=== PATIENT | female | born 1985 | race Caucasian/White ===

== ENCOUNTER → 2017-10-11 | Outpatient (CLI) | payer OTHER ==
[~2017-10-11] MED LIST: CRG625 PO; NRT/50 PO; OMEP40CA41 PO
[2017-10-11 13:22] LABS: BASO % 0.4 %; BASO ABS # 0.03 K/uL (0-0.2); COMPLETE YES; EOS % 1.6 %; HEMATOCRIT 45.4 % (37-47); IG% 0.3 %; LYMPH % 27.3 %; LYMPH ABS # 1.88 K/uL (1.2-3.4); MEAN CELL VOLUME 95.2 fL (80-100); MEAN CORPUSCULAR HEMOGLOBIN 33.3 pg (25-34); MEAN PLATELET VOLUME 9.6 fL (7.4-10.4); MONO % 7.3 %; NEUT % 63.1 %; PLATELET COUNT 289 K/uL (130-400); RED BLOOD COUNT 4.77 M/uL (4.2-5.4); WHITE BLOOD COUNT 6.88 K/uL (4.8-10.8)
[2017-10-11 13:48] LABS: ALT/SGPT 42 U/L (12-78); BLOOD UREA NITROGEN 11 mg/dl (7-18); BUN/CREATININE RATIO 11.1 (10-20); CALCIUM 9.2 mg/dl (8.5-10.1); CARBON DIOXIDE 24 mmol/L (21-32); CHLORIDE 106 mmol/L (98-107); CREATININE 0.96 mg/dl (0.60-1.20); GLUCOSE 93 mg/dl (70-99); POTASSIUM 4.1 mmol/L (3.5-5.1); SODIUM 137 mmol/L (136-145)
[2017-10-11 13:58] LABS: ALB/GLOB RATIO 1.1 (0.9-2); ALKALINE PHOSPHATASE 89 U/L (45-117); AST/SGOT 20 U/L (15-37)
== END | disposition home or self-care (01) ==
LOC: C.LAB 12:40
PROVIDERS: ATTEND Family Medicine
DX: R42 Dizziness and giddiness (principal); R23.2 Flushing; I10 Essential (primary) hypertension

== ENCOUNTER → 2017-10-21 | Outpatient (CLI) | payer OTHER ==
[~2017-10-21] MED LIST changes: +GADAVIST IV PRN
--- NOTE | 2017-10-21 15:06 | DIAGNOSTIC IMAGING REPORT ---
MRI OF THE BRAIN WITHOUT AND WITH IV CONTRAST CLINICAL HISTORY: VISUAL CHANGES; DIZZINESS HEADACHE COMPARISON STUDY: Noncontrast head CT dated 11/30/2011 TECHNIQUE: MRI of the brain was performed from the vertex to the skull base utilizing various T1 and T2 weighted sequences. Following the IV administration of 9 mL of Gadavist contrast, additional enhanced images were obtained. FINDINGS: Sagittal T1, axial diffusion, proton density and T2 weighted axial, coronal FLAIR, and pre and post axial T1-weighted images were acquired. These were supplemented with post gadolinium coronal T1 weighted images. No intra or extra-axial mass lesions are visualized. Axial diffusion-weighted images reveal no evidence of acute or subacute infarction. There is no evidence of ventricular dilatation. Proton density T2-weighted and FLAIR images reveal no significant intraparenchymal signal abnormalities. A very subtle focus of increased FLAIR signal in the region of the right insular cortex, is too subtle to be considered a true lesion. There are no abnormal flow voids. There is no evidence of pathologic enhancement. IMPRESSION: No significant abnormalities. Electronically signed by: Aaron Barajas M.D. 10/21/2017 3:05 PM Dictated Date/Time: 10/21/2017 3:02 PM
== END | disposition home or self-care (01) ==
LOC: C.MRI 13:33
PROVIDERS: ATTEND Family Medicine
DX: H53.9 Unspecified visual disturbance (principal); R42 Dizziness and giddiness

== ENCOUNTER 2017-11-13 18:39 | Inpatient (IN) | payer OTHER ==
[~2017-11-13] VITALS: Ht 165.1 cm; Wt 95.3 kg
[2017-11-13] MEDS ORDERED: IUD'IUD (18:56)
[2017-11-13 19:15] LABS: BASO % 0.4 %; BASO ABS # 0.04 K/uL (0-0.2); COMPLETE YES; EOS % 2.3 %; HEMATOCRIT 44.4 % (37-47); IG% 0.3 %; LYMPH % 32.9 %; LYMPH ABS # 3.16 K/uL (1.2-3.4); MEAN CELL VOLUME 94.9 fL (80-100); MEAN CORPUSCULAR HEMOGLOBIN 33.3 pg (25-34); MEAN CORPUSCULAR HGB CONC 35.1 g/dl (32-36); MEAN PLATELET VOLUME 9.2 fL (7.4-10.4); MONO % 5.9 %; NEUT % 58.2 %; PLATELET COUNT 325 K/uL (130-400); RED BLOOD COUNT 4.68 M/uL (4.2-5.4)
[2017-11-13 19:39] LABS: ALT/SGPT 42 U/L (12-78); AST/SGOT 17 U/L (15-37); BLOOD UREA NITROGEN 9 mg/dl (7-18); CALCIUM 8.8 mg/dl (8.5-10.1); CARBON DIOXIDE 22 mmol/L (21-32); CHLORIDE 104 mmol/L (98-107); CREATININE 1.01 mg/dl (0.60-1.20); GLUCOSE 113 mg/dl (70-99); POTASSIUM 3.7 mmol/L (3.5-5.1); SODIUM 134 mmol/L (136-145)
[2017-11-13 19:48] LABS: INR 0.9 (0.9-1.1); PROTHROMBIN TIME (PATIENT) 9.4 SECONDS (9.0-12.0)
[2017-11-13 19:50] LABS: ALKALINE PHOSPHATASE 117 U/L (45-117)
[2017-11-13 19:54] LABS: URINE APPEARANCE CLOUDY (CLEAR); URINE BILIRUBIN NEG (NEG); URINE COLOR YELLOW; URINE NITRITE NEG (NEG); URINE SPECIFIC GRAVITY 1.019 (1.000-1.030); UROBILINOGEN NEG (NEG)
--- NOTE | 2017-11-13 19:59 | DIAGNOSTIC IMAGING REPORT ---
CHEST ONE VIEW PORTABLE HISTORY: 32 years-old Female severe hypertension COMPARISON: Chest radiograph 01/03/2015 TECHNIQUE: Portable upright AP view of the chest FINDINGS: Cardiomediastinal and hilar silhouettes are within normal limits. No pneumothorax, pleural effusion, focal airspace consolidation or overt pulmonary edema. Bones of the chest appear grossly intact. IMPRESSION: No acute process. The above report was generated using voice recognition software. It may contain grammatical, syntax or spelling errors. Electronically signed by: Campbell Kc M.D. 11/13/2017 7:57 PM Dictated Date/Time: 11/13/2017 7:56 PM
[2017-11-13 20:04] LABS: MANUAL MICROSCOPIC REQUIRED? NO; REVIEW REQ? NO
[2017-11-13] MEDS ORDERED: LOSARTAN POTASSIUM 50 MG TAB PO STA (20:38)
[2017-11-13] MEDS ORDERED: HydrALAZINE HCL 20 MG/ML VIAL IV. STA (21:13)
--- NOTE | 2017-11-13 21:41 | DIAGNOSTIC IMAGING REPORT ---
HEAD WITHOUT CONTRAST (CT) CLINICAL HISTORY: 32 years-old Female with severe hypertension, blurred vision, right arm numbness. Acute hypertension TECHNIQUE: Multiple axial CT images of the head were obtained without contrast. A dose lowering technique was utilized adhering to the principles of ALARA. CT DOSE: 537.48 mGy.cm COMPARISON: Head CT 11/30/2011, brain MR 10/21/2017. FINDINGS: No acute intracranial hemorrhage, midline shift, intracranial mass, hydrocephalus, territorial ischemia or abnormal extra-axial collection. The calvarium is intact. The paranasal sinuses, mastoid air cells, and middle ear cavities are clear. IMPRESSION: No acute intracranial abnormality. The above report was generated using voice recognition software. It may contain grammatical, syntax or spelling errors. Electronically signed by: Campbell Kc M.D. 11/13/2017 9:39 PM Dictated Date/Time: 11/13/2017 9:37 PM
[2017-11-13] MEDS ORDERED: NITROGLYCERIN 0.4 MG SL PER TAB CHARGE SL PRN (22:30)
[2017-11-13] MEDS ORDERED: MoRPHine SULFATE 2 MG/ML CARP IV PRN (22:30)
[2017-11-13] MEDS ORDERED: MAGNESIUM HYDROXIDE SUSP 30 ML UDC PO PRN (22:30)
[2017-11-13] MEDS ORDERED: ALUMINUM/MAGNESIUM/SIMETH (MAALOX MAX) 30 ML UDC PO PRN (22:30)
--- NOTE | 2017-11-13 22:52 | EMERGENCY ROOM VISIT NOTE ---
History Report prepared by Dwight: Odalys Lou Under the Supervision of: Dr. Yo Gates M.D. First contact with patient: 18:54 Chief Complaint: HYPERTENSION Stated Complaint: HYPERTENSION,VISION History of Present Illness The patient is a 32 year old female who presents to the Emergency Room with complaints of persistent hypertension that began about an hour ago. The patient was in the cafeteria eating, when she suddenly was unable to see clearly. The patient denies experiencing a headache during or after her loss of vision. She notes that she felt flushed and her left side felt warm. The patient has been experiencing some numbness and tingling in her arms. The patient was recently seen in the Emergency Department for similar symptoms. After her last visit, she had an MRI and blood work done by her PCP. Both the MRI and blood work came back normal. She takes Carbitol to regulate her blood pressure. She was first put on a beta manuel, then she was switched to Lisinopril but had negative side effects, causing her to be switched to Carvedilol. The patient has a family history of hypertension. She notes that she is currently still a smoker, but has been smoking less frequently. Pt denies LOC, headache, fevers, chills, diaphoresis, neck pain, chest pain, breathing difficulties, nausea, vomiting, melena, hematochezia, urinary symptoms , weakness, lymphadenopathy, rash, or other complaints. Source of History: patient Onset: hour ago Position: other (global) Quality: other (hypertension ) Timing: other (persistent) Review of Systems See HPI for pertinent positives and negatives. A total of ten systems were reviewed and were otherwise negative. Past Medical & Surgical Medical Problems: (1) Chest pain (2) Cough (3) HTN (hypertension) (4) Malignant hypertension (5) SOB (shortness of breath) Family History Heart disease Hypertension Social History Smoking Status: Current Every Day Smoker Alcohol Use: occasionally Marital Status: single Occupation Status: employed Current/Historical Medications Scheduled Carvedilol (Carvedilol), 6.25 MG PO BID Nortriptyline HCl (Nortriptyline HCl), 50 MG PO HS Omeprazole (Prilosec), 40 MG PO DAILY Tizanidine (Tizanidine HCl), 4 MG PO HS Miscellaneous Medications Iud's (Paragard Intrauterine Surfboard Maker) Allergies Coded Allergies: Cefaclor (Verified Allergy, Severe, ANAPHILAXIS, 11/13/17) Physical Exam Vital Signs Date Time Temp Pulse Resp B/P (MAP) Pulse Ox O2 Delivery O2 Flow Rate FiO2 11/13/17 22:02 104 31 97 11/13/17 22:01 163/128 11/13/17 21:47 99 29 11/13/17 21:46 174/101 11/13/17 21:43 169/116 11/13/17 21:26 163/135 11/13/17 21:17 121 35 96 11/13/17 21:16 175/116 11/13/17 21:14 176/119 11/13/17 21:09 176/113 11/13/17 21:02 109 25 95 11/13/17 21:01 164/114 11/13/17 20:54 162/109 11/13/17 20:47 102 24 97 11/13/17 20:42 165/113 11/13/17 20:39 107 26 97 11/13/17 20:31 158/114 11/13/17 20:24 104 25 96 11/13/17 20:09 103 22 96 11/13/17 20:08 167/108 11/13/17 20:01 157/116 11/13/17 19:54 98 25 96 11/13/17 19:39 118 31 96 11/13/17 19:31 154/107 11/13/17 19:24 109 11/13/17 19:24 113 38 96 11/13/17 19:19 158/121 11/13/17 19:05 98 Room Air 11/13/17 19:05 98 Room Air 11/13/17 18:41 36.6 127 18 208/149 98 Room Air Physical Exam GENERAL: Awake, alert, well-appearing, in no distress HENT: Normocephalic, atraumatic. Oropharynx unremarkable. EYES: Normal conjunctiva. Sclera non-icteric. NECK: Supple. No nuchal rigidity. FROM. No JVD. RESPIRATORY: Clear to auscultation. CARDIAC: Borderline tachycardic rate, normal rhythm. Extremities warm and well perfused. Pulses equal. ABDOMEN: Soft, non-distended. No tenderness to palpation. No rebound or guarding. No masses. RECTAL: Deferred. MUSCULOSKELETAL: Chest examination reveals no tenderness. The back is symmetrical on inspection without obvious abnormality. There is no CVA tenderness to palpation. No joint edema. LOWER EXTREMITIES: Calves are equal size bilaterally and non-tender. No edema. No discoloration. NEURO: Normal sensorium. No sensory or motor deficits noted. SKIN: No rash or jaundice noted. Medical Decision & Procedures ER Provider Diagnostic Interpretation: Radiology results as stated below per my review and radiologist interpretation: CHEST ONE VIEW PORTABLE HISTORY: 32 years-old Female severe hypertension COMPARISON: Chest radiograph 01/03/2015 TECHNIQUE: Portable upright AP view of the chest FINDINGS: Cardiomediastinal and hilar silhouettes are within normal limits. No pneumothorax, pleural effusion, focal airspace consolidation or overt pulmonary edema. Bones of the chest appear grossly intact. IMPRESSION: No acute process. The above report was generated using voice recognition software. It may contain grammatical, syntax or spelling errors. Electronically signed by: Campbell Kc M.D. 11/13/2017 7:[address]: A noncontrast CT scan of the head was performed and was negative for tumor, fracture, intracranial hemorrhage, or other acute pathology. Laboratory Results 11/13/17 19:00 Red Blood Count 4.68, Mean Corpuscular Volume 94.9, Mean Corpuscular Hemoglobin 33.3, Mean Corpuscular Hemoglobin Concent 35.1, Mean Platelet Volume 9.2, Neutrophils (%) (Auto) 58.2, Lymphocytes (%) (Auto) 32.9, Monocytes (%) (Auto) 5.9, Eosinophils (%) (Auto) 2.3, Basophils (%) (Auto) 0.4, Neutrophils # (Auto) 5.58, Lymphocytes # (Auto) 3.16, Monocytes # (Auto) 0.57, Eosinophils # (Auto) 0.22, Basophils # (Auto) 0.04 11/13/17 19:00 Test 11/13/17 19:00 11/13/17 19:29 11/13/17 21:53 White Blood Count 9.60 K/uL (4.8-10.8) Red Blood Count 4.68 M/uL (4.2-5.4) Hemoglobin 15.6 g/dL (12.0-16.0) Hematocrit 44.4 % (37-47) Mean Corpuscular Volume 94.9 fL (80-100) Mean Corpuscular Hemoglobin 33.3 pg (25-34) Mean Corpuscular Hemoglobin Concent 35.1 g/dl (32-36) Platelet Count 325 K/uL (130-400) Mean Platelet Volume 9.2 fL (7.4-10.4) Neutrophils (%) (Auto) 58.2 % Lymphocytes (%) (Auto) 32.9 % Monocytes (%) (Auto) 5.9 % Eosinophils (%) (Auto) 2.3 % Basophils (%) (Auto) 0.4 % Neutrophils # (Auto) 5.58 K/uL (1.4-6.5) Lymphocytes # (Auto) 3.16 K/uL (1.2-3.4) Monocytes # (Auto) 0.57 K/uL (0.11-0.59) Eosinophils # (Auto) 0.22 K/uL (0-0.5) Basophils # (Auto) 0.04 K/uL (0-0.2) RDW Standard Deviation 44.7 fL (36.4-46.3) RDW Coefficient of Variation 13.0 % (11.5-14.5) Immature Granulocyte % (Auto) 0.3 % Immature Granulocyte # (Auto) 0.03 K/uL (0.00-0.02) Prothrombin Time 9.4 SECONDS (9.0-12.0) Prothromb Time International Ratio 0.9 (0.9-1.1) Activated Partial Thromboplast Time 26.5 SECONDS (21.0-31.0) Partial Thromboplastin Ratio 1.0 Anion Gap 8.0 mmol/L (3-11) Est Creatinine Clear Calc Drug Dose 90.8 ml/min Estimated GFR () 84.7 Estimated GFR (Non- 73.1 BUN/Creatinine Ratio 9.0 (10-20) Calcium Level 8.8 mg/dl (8.5-10.1) Total Bilirubin 0.3 mg/dl (0.2-1) Direct Bilirubin < 0.1 mg/dl (0-0.2) Aspartate Amino Transf (AST/SGOT) 17 U/L (15-37) Alanine Aminotransferase (ALT/SGPT) 42 U/L (12-78) Alkaline Phosphatase 117 U/L (45-117) Total Creatine Kinase 72 U/L (26-192) Creatine Kinase MB < 0.5 ng/ml (0.5-3.6) Creatine Kinase MB Ratio (0-3.0) Troponin I < 0.015 ng/ml (0-0.045) Total Protein 7.5 gm/dl (6.4-8.2) Albumin 3.5 gm/dl (3.4-5.0) Lipase 197 U/L (73-393) Thyroid Stimulating Hormone (TSH) 2.390 uIu/ml (0.300-4.500) Urine Color YELLOW Urine Appearance CLOUDY (CLEAR) Urine pH 8.0 (4.5-7.5) Urine Specific [place] 1.019 (1.000-1.030) Urine Protein NEG (NEG) Urine Glucose (UA) NEG (NEG) Urine Ketones NEG (NEG) Urine Occult Blood NEG (NEG) Urine Nitrite NEG (NEG) Urine Bilirubin NEG (NEG) Urine Urobilinogen NEG (NEG) Urine Leukocyte Esterase NEG (NEG) Urine WBC (Auto) 0 /hpf (0-5) Urine RBC (Auto) 10-30 /hpf (0-4) Urine Hyaline Casts (Auto) 1-5 /lpf (0-5) Urine Epithelial Cells (Auto) 10-20 /lpf (0-5) Urine Bacteria (Auto) NEG (NEG) Laboratory results reviewed by me Medications Administered Medications (Trade) Dose Ordered Sig/Rajwinder Route Start Time Stop Time Status Last Admin Dose Admin Losartan Potassium (coZAAR TAB) 50 mg NOW STAT PO 11/13/17 20:38 11/13/17 20:40 DC 11/13/17 20:51 50 MG Hydralazine HCl (HydrALAZINE INJ) 5 mg NOW STAT IV. 11/13/17 21:13 11/13/17 21:14 DC 11/13/17 21:23 5 MG ECG Indication: other (hypertension) Rate (beats per minute): 101 Rhythm: sinus tachycardia Findings: no acute ischemic change, no ectopy ED Course 1911: The patient was evaluated in room B6. A complete history and physical exam was performed. 2017: Patient reassessed and doing well. She still hypertensive but has no neurologic symptoms. 2031: I discussed the case with cardiology. Cozaar was recommended for outpatient follow-up. First dose will be ordered. 2118: Patient reevaluated as neurologic symptoms recurred. She is noting visual disturbance. Her blood pressure was taken and she was found to be almost 180/120. Hydralazine was ordered. CT imaging ordered. I discussed further management in the hospital. The patient was in agreement. 2139: Discussed the case with Dr. Marcelo Porras. The patient will be evaluated for further management. Medical Decision Prior records/ancillary studies reviewed regarding the history above. Triage Nursing notes reviewed and agree them. Additional history obtained from the family. The patient's history was concerning for hypertension. Differential diagnosis: Etiologies such as hypertensive urgency, hypertensive emergency, benign hypertension, cardiovascular pathology, pheochromocytoma, electrolyte abnormality, renal disease, endorgan damage, as well as others were entertained. Physical examination: As above. ER treatment provided: Cozaar 50mg PO. Hydralazine 5mg IV On reassessment the patient felt better. Diagnostic interpretation by me: The electrocardiogram was negative for pathologic change. The labs revealed an unremarkable CBC and chemistry panel. Imaging studies: X-ray and imaging as above. Consultation: A consultation was placed with the hospitalist. The case was discussed and diagnostics were reviewed. The patient was evaluated in the ER for further treatment. By the evaluation outlined above emergent etiologies such as hypertensive emergency, pheochromocytoma, endorgan damage, cardiac ischemia, aortic dissection, pulmonary embolism, pneumonia, pneumothorax, infections, gastrointestinal, as well as others were deemed relatively unlikely. The [] informed about the findings as listed above. All questions were answered and [] pleased with the treatment. Return instructions were outlined and the patient was discharged in stable condition. Outpatient prescription management: [] Referral: The patient was referred back to [] primary care physician for follow-up in 2 to 3 days for a recheck of the current condition. The chart was completed utilizing [employer] voice recognition software. Grammatical errors, random word insertions, pronoun errors, and incomplete sentences are an occasional consequence of this system due to software limitations, ambient noise, and hardware issues. Any formal questions or concerns about the content, text, or information contained within the body of this dictation should be directly addressed to the physician for clarification. Medication Reconcilliation Current Medication List: was personally reviewed by me Consults Time Called: 2016 Consulting Physician: Dr. Luz, Cardiology Returned Call: 2032 Discussed the patient's case. Dr. Luz will see her in the office and recommends low Cozaar. Impression Primary Impression: Malignant hypertension Scribe Attestation The scribe's documentation has been prepared under my direction and personally reviewed by me in its entirety. I confirm that the note above accurately reflects all work, treatment, procedures, and medical decision making performed by me. Departure Information Dispostion Being Evaluated By Hospitalist Referrals No Doctor, Assigned (PCP) Patient Instructions My [facility]
[2017-11-14] VITALS (15 sets, daily range): BP systolic 118–180; BP diastolic 72–122; PULSE 92–130; TEMP 36.4–36.8; O2SAT 96–100; Ht 165.1 cm; Wt 95.3 kg
[2017-11-14] MEDS: ACETAMINOPHEN 325 MG TAB PO PRN ×3 (00:17→16:19)
[2017-11-14] MEDS ORDERED: ZOLPIDEM TARTRATE 5 MG TAB PO PRN (02:00)
[2017-11-14] MEDS: NORTRIPTYLINE HCL 25 MG CAP PO SCH (02:11)
[2017-11-14] MEDS ORDERED: NURSING VERBAL MED ORDER ONE (02:30)
--- NOTE | 2017-11-14 04:21 | History and Physical ---
History & Physical Date & Time of Service: Nov 13, 2017 at 2100 Chief Complaint: Malignant Hypertension Primary Care Physician: No Doctor, Assigned History of Present Illness Source: patient, hospital records This is a 32 yo f that is presenting to us with elevated blood pressure which started [employer]. She was eating in the cafeteria when she started to have blurry vision and came to the ED for evaluation. She was found to have an elevated blood pressure and was given a 50 mg dose of Losartan. The eye symptoms started to resolve. While she was in the ED waiting for the evaluation to be completed she felt flushed and another episode of elevated bp occurred along with a diffuse headache blurry vision. She was then treated with Hydralazine 5 mg IV which improved the blood pressure some as well as the blurry vision. She was recently seen in the ED for similar symptoms and she did follow up with PCP and MRI was completed which was negative. She has been on antihypertensives for some time and she was placed on lisinopril originally and because of negative side effects recently changed to Carvedilol which she is now currently still taking. During the assessment the patient did not have any visual symptoms and headache continued however much lower in intensity. Past Medical/Surgical History Medical Problems: (1) Chest pain Status: Resolved (2) Cough Status: Resolved (3) HTN (hypertension) Status: Chronic (4) SOB (shortness of breath) Status: Resolved Family History Heart disease Hypertension Social History Smoking Status: Current Every Day Smoker Smokeless Tobacco Use: No Alcohol Use: none Drug Use: none Marital Status: single Occupational Status: employed Immunizations History of Influenza Vaccine: Unknown History of Tetanus Vaccine?: Unknown History of Pneumococcal: No History of Hepatitis B Vaccine: Unknown Multi-Drug Resistant Organisms History of MDRO: No Allergies Coded Allergies: Cefaclor (Verified Allergy, Severe, ANAPHILAXIS, 11/13/17) Home Medications Scheduled Carvedilol (Carvedilol), 6.25 MG PO BID Nortriptyline HCl (Nortriptyline HCl), 50 MG PO HS Omeprazole (Prilosec), 40 MG PO DAILY Tizanidine (Tizanidine HCl), 4 MG PO HS Miscellaneous Medications Iud's (Paragard Intrauterine Profile Saw Setup Operator) Review of Systems Constitutional: No fever, No chills, No sweats Eyes: + worsening of vision ENT: No hearing loss Respiratory: No cough, No sputum, No wheezing, No shortness of breath, No dyspnea on exertion, No dyspnea at rest Cardiovascular: No chest pain Abdomen: No pain, No nausea, No vomiting, No diarrhea, No constipation Musculoskeletal: No joint pain, No muscle pain Genitourinary - Female: No dysuria, No hematuria Neurologic: No weakness, No numbness/tingling, No balance problems Endocrine: No fatigue Integumentary: No rash Physical Exam Vital Signs Date Time Temp Pulse Resp B/P (MAP) Pulse Ox O2 Delivery O2 Flow Rate FiO2 11/14/17 04:00 Room Air 11/14/17 01:33 162/99 (120) 163/104 (123) 11/14/17 00:11 100 20 163/109 96 Room Air 165/122 11/14/17 00:00 Room Air 11/13/17 22:02 104 31 97 11/13/17 22:01 163/128 11/13/17 21:47 99 29 11/13/17 21:46 174/101 11/13/17 21:43 169/116 11/13/17 21:26 163/135 11/13/17 21:17 121 35 96 11/13/17 21:16 175/116 11/13/17 21:14 176/119 11/13/17 21:09 176/113 11/13/17 21:02 109 25 95 11/13/17 21:01 164/114 11/13/17 20:54 162/109 11/13/17 20:47 102 24 97 11/13/17 20:42 165/113 11/13/17 20:39 107 26 97 11/13/17 20:31 158/114 11/13/17 20:24 104 25 96 11/13/17 20:09 103 22 96 11/13/17 20:08 167/108 11/13/17 20:01 157/116 11/13/17 19:54 98 25 96 11/13/17 19:39 118 31 96 11/13/17 19:31 154/107 11/13/17 19:24 109 11/13/17 19:24 113 38 96 11/13/17 19:19 158/121 11/13/17 19:05 98 Room Air 11/13/17 19:05 98 Room Air 11/13/17 18:41 36.6 127 18 208/149 98 Room Air General Appearance: no apparent distress Head: normocephalic, atraumatic Eyes: normal inspection, PERRL, EOMI, funduscopic exam normal ENT: normal ENT inspection Neck: supple Respiratory/Chest: normal breath sounds, no respiratory distress, no accessory muscle use Cardiovascular: no murmur, normal peripheral pulses, + tachycardia Abdomen/GI: normal bowel sounds, non tender, soft Back: normal inspection, no CVA tenderness Extremities/Musculoskelatal: normal inspection, no calf tenderness, no pedal edema, normal range of motion Neurologic/Psych: technical support internship II-XII nml as tested, alert, normal mood/affect, oriented x 3 Skin: normal color, warm/dry, no rash Lymphatic: no adenopathy Diagnostics Laboratory Results Results Past 24 Hours Test 11/13/17 19:00 11/13/17 19:29 11/13/17 21:53 11/14/17 02:03 Range/Units White Blood Count 9.60 4.8-10.8 K/uL Red Blood Count 4.68 4.2-5.4 M/uL Hemoglobin 15.6 12.0-16.0 g/dL Hematocrit 44.4 37-47 % Mean Corpuscular Volume 94.9 80-100 fL Mean Corpuscular Hemoglobin 33.3 25-34 pg Mean Corpuscular Hemoglobin Concent 35.1 32-36 g/dl Platelet Count 325 130-400 K/uL Mean Platelet Volume 9.2 7.4-10.4 fL Neutrophils (%) (Auto) 58.2 % Lymphocytes (%) (Auto) 32.9 % Monocytes (%) (Auto) 5.9 % Eosinophils (%) (Auto) 2.3 % Basophils (%) (Auto) 0.4 % Neutrophils # (Auto) 5.58 1.4-6.5 K/uL Lymphocytes # (Auto) 3.16 1.2-3.4 K/uL Monocytes # (Auto) 0.57 0.11-0.59 K/uL Eosinophils # (Auto) 0.22 0-0.5 K/uL Basophils # (Auto) 0.04 0-0.2 K/uL RDW Standard Deviation 44.7 36.4-46.3 fL RDW Coefficient of Variation 13.0 11.5-14.5 % Immature Granulocyte % (Auto) 0.3 % Immature Granulocyte # (Auto) 0.03 0.00-0.02 K/uL Prothrombin Time 9.4 9.0-12.0 SECONDS Prothromb Time International Ratio 0.9 0.9-1.1 Activated Partial Thromboplast Time 26.5 21.0-31.0 SECONDS Partial Thromboplastin Ratio 1.0 Sodium Level 134 136-145 mmol/L Potassium Level 3.7 3.5-5.1 mmol/L Chloride Level 104 98-107 mmol/L Carbon Dioxide Level 22 21-32 mmol/L Anion Gap 8.0 3-11 mmol/L Blood Urea Nitrogen 9 7-18 mg/dl Creatinine 1.01 0.60-1.20 mg/dl Est Creatinine Clear Calc Drug Dose 90.8 ml/min Estimated GFR () 84.7 Estimated GFR (Non- 73.1 BUN/Creatinine Ratio 9.0 10-20 Random Glucose 113 70-99 mg/dl Calcium Level 8.8 8.5-10.1 mg/dl Total Bilirubin 0.3 0.2-1 mg/dl Direct Bilirubin < 0.1 0-0.2 mg/dl Aspartate Amino Transf (AST/SGOT) 17 15-37 U/L Alanine Aminotransferase (ALT/SGPT) 42 12-78 U/L Alkaline Phosphatase 117 45-117 U/L Total Creatine Kinase 72 26-192 U/L Creatine Kinase MB < 0.5 0.5-3.6 ng/ml Creatine Kinase MB Ratio 0-3.0 Troponin I < 0.015 0-0.045 ng/ml Total Protein 7.5 6.4-8.2 gm/dl Albumin 3.5 3.4-5.0 gm/dl Lipase 197 73-393 U/L Thyroid Stimulating Hormone (TSH) 2.390 0.300-4.500 uIu/ml Urine Color YELLOW Urine Appearance CLOUDY CLEAR Urine pH 8.0 4.5-7.5 Urine Specific [place] 1.019 1.000-1.030 Urine Protein NEG NEG Urine Glucose (UA) NEG NEG Urine Ketones NEG NEG Urine Occult Blood NEG NEG Urine Nitrite NEG NEG Urine Bilirubin NEG NEG Urine Urobilinogen NEG NEG Urine Leukocyte Esterase NEG NEG Urine WBC (Auto) 0 0-5 /hpf Urine RBC (Auto) 10-30 0-4 /hpf Urine Hyaline Casts (Auto) 1-5 0-5 /lpf Urine Epithelial Cells (Auto) 10-20 0-5 /lpf Urine Bacteria (Auto) NEG NEG Diagnostic Radiology HEAD WITHOUT CONTRAST (CT) CLINICAL HISTORY: 32 years-old Female with severe hypertension, blurred vision, right arm numbness. Acute hypertension TECHNIQUE: Multiple axial CT images of the head were obtained without contrast. A dose lowering technique was utilized adhering to the principles of ALARA. CT DOSE: 537.48 mGy.cm COMPARISON: Head CT 11/30/2011, brain MR 10/21/2017. FINDINGS: No acute intracranial hemorrhage, midline shift, intracranial mass, hydrocephalus, territorial ischemia or abnormal extra-axial collection. The calvarium is intact. The paranasal sinuses, mastoid air cells, and middle ear cavities are clear. IMPRESSION: No acute intracranial abnormality. CHEST ONE VIEW PORTABLE HISTORY: 32 years-old Female severe hypertension COMPARISON: Chest radiograph 01/03/2015 TECHNIQUE: Portable upright AP view of the chest FINDINGS: Cardiomediastinal and hilar silhouettes are within normal limits. No pneumothorax, pleural effusion, focal airspace consolidation or overt pulmonary edema. Bones of the chest appear grossly intact. IMPRESSION: No acute process. EKG Sinus tachycardia Otherwise normal ECG When compared with ECG of 01-FEB-2016 18:59, No significant change was found HR 101 Impression Assessment and Plan This is a 32 yo f that is presenting to us with malignant hypertension Malignant hypertension - Hydralazine for systolic > 180 or symptoms - troponin repeat - r/o secondary causes - aldosterone and renin levels ( drawn in the ED), plasma metanephrines and catecholamines and 24 h urine ( patient had intermittent flushing episodes in the outpt setting) - renal Doppler to assess for renal artery stenosis - Spironolactone 25 mg in am - consult [facility] Mood Disorder Nortriptyline 50 mg hs GERD - protonix 40 mg tobacco abuse - tobacco cessation counselling DVT prophylaxis SCD, heparin bid Attending addendum: I have physically seen this patient, have supervised the medical residents activities, and agree with the H&P unless as otherwise noted. Assessment and Plan: Malignant hypertension-- Assess for possible secondary causes of hypertension. Among those, aldosteronism is most likely. Order renin and aldosterone levels, then start spironolactone 25 mg by mouth daily, with first dose tonight. Order renal Dopplers, serum catecholamines, urine metanephrines and urine 5 HIAA. Hold outpatient carvedilol, with her last dose having been taken in the morning. Mood disorder-- Continue nortriptyline 50 mg at bedtime, monitor for orthostasis GERD-like Continue pantoprazole Tobacco use disorder-- Discussed additive associations with hypertension and other health issues in relation to cardiovascular risk factors and cancer Level of Care Telemetry Advanced Directives Existing Advance Directive: No Existing Living Will: No Existing Power of Entry Specialist: No Resuscitation Status FULL RESUSCITATION VTE Prophylaxis VTE Risk Assessment Done? Y/N: Yes Risk Level: Moderate Given or contraindicated: Unfractionated heparin SQ, SCD's Social Service Consult None Apply Note Total Time: Critical Care 30 - 74 minutes
--- NOTE | 2017-11-14 07:09 | DIAGNOSTIC IMAGING REPORT ---
DUPLEX RENAL ARTERY CLINICAL HISTORY: assess for RTA hypertension TECHNIQUE: Ultrasound COMPARISON STUDY: None FINDINGS: Study limited due to patient body habitus. Right kidney measures 9.7 cm. No evidence for hydronephrosis. Limited visibility of the vasculature shows no increase in velocities. Left kidney measures 12 cm. No evidence for hydronephrosis. No significant increase in renal arterial vasculature. IMPRESSION: Limited study showing no significant arterial stenotic change. The above report was generated using voice recognition software. It may contain grammatical, syntax or spelling errors. Electronically signed by: Roland Jensen M.D. 11/14/2017 7:08 AM Dictated Date/Time: 11/14/2017 7:07 AM
[2017-11-14] MEDS: PANTOprazole SOD 40 MG TAB PO SCH (08:58)
[2017-11-14] MEDS ORDERED: SPIRONOLACTONE 25 MG TAB PO SCH (09:00)
[2017-11-14] MEDS: HEPARIN SOD 5000 UNIT/0.5 ML CARP SQ SCH ×2 (09:00→21:00)
[2017-11-14] MEDS ORDERED: LOSA50TA54 PO (10:43)
--- NOTE | 2017-11-14 11:08 | Discharge Instructions ---
Discharge Instructions Date of Service Nov 15, 2017. Admission Reason for Admission: Malignant Hypertension Discharge Discharge Diagnosis / Problem: High Blood Pressure Discharge Goals Goal(s): Improve disease control Activity Recommendations Activity Limitations: resume your previous activity . Instructions / Follow-Up Instructions / Follow-Up You were admitted to [facility] due to a headache and blurry vision that is likely from your high blood pressure. Your blood pressure was found to be 208/149 at the hospital and we treated you with several medications , including losartan, hydralazine and spironolactone. We also checked your thyroid function and cortisol levels to ensure your blood pressure was not elevated because of that, and that was normal. In addition, we checked an ultrasound of the arteries supplying your kidneys to ensure there were no blockages in these, and this was normal. Given that we currently do not know the reason for your sudden elevation in high blood pressure, we will be discharging you with an additional medication, hyzaar, on top of your current regimen of carvedilol twice a day. We also recommend you follow up with Dr. Ramsay in the clinic to further investigate the cause of your high blood pressure. We also recommend you have a sleep study in the near future to rule out the possibility of sleep apnea. In the meantime, please try to minimize salt in your diet, and keep stress levels to a minimum. If you experience worsening headaches, blurry vision, or notice a high blood pressure reading, please seek medical attention. Current Hospital Diet Patient's current hospital diet: AHA Diet (Heart Healthy), Low Sodium Diet (2gm Na) Discharge Diet Recommended Diet: AHA Diet (Heart Healthy), Low Sodium Diet (2gm Na) Pending Studies Studies pending at discharge: yes List of pending studies: Aldosterone and renin levels, 24 hour urinary metanephrines Medical Emergencies . Who to Call and When: Medical Emergencies: If at any time you feel your situation is an emergency, please call 911 immediately. . Non-Emergent Contact Non-Emergency issues call your: Primary Care Provider . . "Provider Documentation" section prepared by Ana Hassan. . VTE Core Measure Inpt VTE Proph given/why not?: Unfractionated heparin SQ, SCD's
--- NOTE | 2017-11-14 11:19 | Discharge Summary ---
Discharge Summary Date of Service Nov 15, 2017. Discharge Summary Admission Date: Nov 13, 2017 at 22:30 Discharge Date: Nov 15, 2017 Discharge Disposition: Home Principal Diagnosis: Hypertension Problems/Secondary Diagnoses: 1) Mood disorder 2) GERD 3) Tobacco abuse Immunizations: Have You Had Influenza Vaccine: Unknown History of Tetanus Vaccine?: Unknown History of Pneumococcal: No History of Hepatitis B Vaccine: Unknown Procedures: CHEST ONE VIEW PORTABLE HISTORY: 32 years-old Female severe hypertension COMPARISON: Chest radiograph 01/03/2015 TECHNIQUE: Portable upright AP view of the chest FINDINGS: Cardiomediastinal and hilar silhouettes are within normal limits. No pneumothorax, pleural effusion, focal airspace consolidation or overt pulmonary edema. Bones of the chest appear grossly intact. IMPRESSION: No acute process. HEAD WITHOUT CONTRAST (CT) CLINICAL HISTORY: 32 years-old Female with severe hypertension, blurred vision, right arm numbness. Acute hypertension TECHNIQUE: Multiple axial CT images of the head were obtained without contrast. A dose lowering technique was utilized adhering to the principles of ALARA. CT DOSE: 537.48 mGy.cm COMPARISON: Head CT 11/30/2011, brain MR 10/21/2017. FINDINGS: No acute intracranial hemorrhage, midline shift, intracranial mass, hydrocephalus, territorial ischemia or abnormal extra-axial collection. The calvarium is intact. The paranasal sinuses, mastoid air cells, and middle ear cavities are clear. IMPRESSION: No acute intracranial abnormality. DUPLEX RENAL ARTERY CLINICAL HISTORY: assess for RTA hypertension TECHNIQUE: Ultrasound COMPARISON STUDY: None FINDINGS: Study limited due to patient body habitus. Right kidney measures 9.7 cm. No evidence for hydronephrosis. Limited visibility of the vasculature shows no increase in velocities. Left kidney measures 12 cm. No evidence for hydronephrosis. No significant increase in renal arterial vasculature. IMPRESSION: Limited study showing no significant arterial stenotic change ECHO - There is normal left ventricular wall thickness. - The left ventricle is hyperdynamic. Medication Reconciliation New Medications: Hctz/Losartan (Hyzaar 12.5MG/100MG) 1 Tab Tab 1 TAB PO DAILY for 30 Days, #30 TAB 5 Refills Continued Medications: Carvedilol (Carvedilol) 6.25 Mg Tab 6.25 MG PO BID Iud's (Paragard Intrauterine Water Operator) 1 Iud Iud Nortriptyline HCl (Nortriptyline HCl) 50 Mg Cap 50 MG PO HS Omeprazole (Prilosec) 40 Mg Cap 40 MG PO DAILY Tizanidine (Tizanidine HCl) 4 Mg Tab 4 MG PO HS Discharge Exam Ms. Wick reports she feels well today, better than she has in a while. She states her headache, nausea and blurry vision have abated. She denies chest pain , shortness of breath, swelling in her legs, and states she generally does not have any trouble sleeping at night, nor does she report increased levels of stress in her life. Review of Systems: Constitutional: No fever, No chills, No sweats Respiratory: No cough, No sputum, No wheezing Cardiovascular: No chest pain, No orthopnea, No PND, No edema, No palpitations Abdomen: No pain, No nausea, No vomiting, No diarrhea, No constipation Physical Exam: General Appearance: WD/WN, no apparent distress Respiratory/Chest: chest non-tender, lungs clear, normal breath sounds, no respiratory distress, no accessory muscle use Cardiovascular: regular rate, rhythm, no edema, no gallop, no JVD, no murmur , normal peripheral pulses Abdomen / GI: normal bowel sounds, non tender, soft, no organomegaly, no pulsatile mass Extremities: normal inspection, no calf tenderness, normal capillary refill , no pedal edema Hospital Course Ms. Wick is a 32 year old female with a past medical history of hypertension , mood disorder, and GERD who presented to [facility] with severe elevation of BP associated w/blurry vision and headache. Hypertensive Urgency - BP was 208/149 on arrival - she was given 50mg of losartan, 5mg of hydralazine, 25mg of spironolactone, 12.5/50 of hyzaar, her home dose of carvedilol and 5mg of Lopressor over her hospital admission to control her BP - Denied any illicit drug use - troponin negative - TSH normal at 2.3, random cortisol normal, renal artery dopplers normal, head CT normal, CXR normal - Echo with normal Left ventricle wall thickness. Hyperdynamic left ventricle with normal EF - Pending results on discharge renin and aldosterone levels - 24 hr urine metanephrine test results pending as well. - should consider outpatient sleep study - Nephrology consulted as well - Dr. Ramsay - Would like to evaluate her further for fibromuscular dysplasia as outpatient. - Discharged on her home dose of carvedilol with addition of losartan/hctz 100/ 12.5mgs daily. Depression -Continue nortriptyline Tobacco Abuse - tobacco cessation counselling provided Total Time Spent: Less than 30 minutes This includes examination of the patient, discharge planning, medication reconciliation, and communication with other providers. Discharge Instructions Please refer to the electronic Patient Visit Report (Discharge Instructions) for additional information. Additional Copies To Kishor Ramsay M.D.; Waleska Liz D.O. Resident Tracking Resident Involvement: Resident Care Provided Care Provided: [facility] Medicine Reviewed: Pt Seen/Exam by Me History no further headache, blurred vision slept well overnight. no foggy feeling in head Constitutional: denies: fever Respiratory: negative: short of breath Cardiovascular: denies chest pain, denies palpitations General Appearance: no apparent distress Respiratory: lungs clear, no respiratory distress Cardiovascular: regular rate, rhythm Neurologic/Psychiatric: alert, oriented x 3 Assessment/Plan Resident Physician Supervision Note: I independently interviewed and examined the patient and verified the cantor history and physical, reviewed labs and image studies, discussed the case with the resident Dr. Hassan and agree with the findings and care plan. Time spent in discharge 35 min
[2017-11-14] MEDS: HydrALAZINE HCL 20 MG/ML VIAL IV. PRN ×2 (12:36→18:01)
[2017-11-14] MEDS ORDERED: LOSARTAN/HCTZ 50-12.5 EA TAB PO ONE (14:30)
--- NOTE | 2017-11-14 17:12 | Family Medicine Progress Note ---
Progress Note Date of Service Nov 14, 2017. Subjective Pt evaluation today including: conversation w/ patient, physical exam, chart review, lab review, review of inpatient medication list Pain: No pain reported PO Intake: Tolerating PO intake Voiding: no voiding problems Ms. Wick reports she feels slightly better today. Her blurry vision has abated although she still complains of a slight headache which she attributes to not having slept well. She denies chest pain, shortness of breath or palpitations. She does state she has been unwell over the past couple of days with a sore throat and productive cough. Constitutional: No fever, No chills ENT: + sore throat Respiratory: + cough, + sputum, No wheezing, No shortness of breath, No dyspnea on exertion Cardiovascular: No chest pain, No edema Abdomen: No pain, No nausea, No vomiting, No diarrhea All Other Systems: Reviewed and Negative Medications Current Inpatient Medications Medications (Trade) Dose Ordered Sig/Rajwinder Route Start Time Stop Time Status Last Admin Dose Admin Heparin Sodium (Porcine) (Heparin Sq 5000 Unit/0.5ml) 5,000 unit Q12 SQ 11/14/17 09:00 12/14/17 08:59 Acetaminophen (Tylenol Tab) 650 mg Q4H PRN PO 11/13/17 22:30 12/13/17 22:29 11/14/17 16:19 650 MG Al Hydrox/Mg Hydrox/Simethicone (Maalox Max Susp) 15 ml Q4H PRN PO 11/13/17 22:30 12/13/17 22:29 Magnesium Hydroxide (Milk Of Magnesia Susp) 30 ml Q12H PRN PO 11/13/17 22:30 12/13/17 22:29 Ondansetron HCl (Zofran Inj) 4 mg Q6H PRN IV 11/13/17 22:30 12/13/17 22:29 Nitroglycerin (Nitrostat Tab) 0.4 mg UD PRN SL 11/13/17 22:30 12/13/17 22:29 Morphine Sulfate (MoRPHine SULFATE INJ) 2 mg Q30M PRN IV 11/13/17 22:30 11/27/17 22:29 Spironolactone (Aldactone Tab) 25 mg QAM PO 11/14/17 09:00 12/14/17 08:59 11/14/17 02:27 25 MG Hydralazine HCl (HydrALAZINE INJ) 5 mg Q4H PRN IV. 11/13/17 22:30 12/13/17 22:29 11/14/17 12:36 5 MG Nortriptyline HCl (Pamelor Cap) 50 mg HS PO 11/14/17 21:00 12/14/17 20:59 11/14/17 02:11 50 MG Pantoprazole Sodium (Protonix Tab) 40 mg QAM PO 11/14/17 09:00 12/14/17 08:59 11/14/17 08:58 40 MG Zolpidem Tartrate (Ambien Tab) 5 mg HS PRN PO 11/14/17 02:00 12/14/17 01:59 Tizanidine HCl (Zanaflex Tab) 4 mg HS PO 11/14/17 21:00 12/14/17 20:59 Objective Vital Signs Date Time Temp Pulse Resp B/P (MAP) Pulse Ox O2 Delivery O2 Flow Rate FiO2 11/14/17 16:10 162/107 (125) 11/14/17 16:00 Room Air 11/14/17 15:15 36.5 110 22 170/114 (132) 97 Room Air 11/14/17 13:30 166/108 (127) 11/14/17 12:31 180/120 (140) 159/119 (132) 11/14/17 12:09 36.8 97 16 155/94 (114) 96 Room Air 11/14/17 12:00 Room Air 11/14/17 08:00 Room Air 11/14/17 07:47 36.7 60 129/72 (91) 100 Room Air 11/14/17 07:45 36.4 101 16 136/89 (105) 97 Room Air 11/14/17 06:06 122/96 (105) 11/14/17 04:00 Room Air 11/14/17 03:24 36.6 92 20 118/81 (93) 97 Room Air 11/14/17 01:33 162/99 (120) 163/104 (123) 11/14/17 00:11 100 20 163/109 96 Room Air 165/122 11/14/17 00:00 Room Air 11/13/17 22:02 104 31 97 11/13/17 22:01 163/128 11/13/17 21:47 99 29 11/13/17 21:46 174/101 11/13/17 21:43 169/116 11/13/17 21:26 163/135 11/13/17 21:17 121 35 96 11/13/17 21:16 175/116 11/13/17 21:14 176/119 11/13/17 21:09 176/113 11/13/17 21:02 109 25 95 11/13/17 21:01 164/114 11/13/17 20:54 162/109 11/13/17 20:47 102 24 97 11/13/17 20:42 165/113 11/13/17 20:39 107 26 97 11/13/17 20:31 158/114 11/13/17 20:24 104 25 96 11/13/17 20:09 103 22 96 11/13/17 20:08 167/108 11/13/17 20:01 157/116 11/13/17 19:54 98 25 96 11/13/17 19:39 118 31 96 11/13/17 19:31 154/107 11/13/17 19:24 109 11/13/17 19:24 113 38 96 11/13/17 19:19 158/121 11/13/17 19:05 98 Room Air 11/13/17 19:05 98 Room Air 11/13/17 18:41 36.6 127 18 208/149 98 Room Air Physical Exam General Appearance: WD/WN, no apparent distress Respiratory/Chest: chest non-tender, lungs clear, normal breath sounds, no respiratory distress, no accessory muscle use Cardiovascular: regular rate, rhythm, no edema, no gallop, no JVD, no murmur Abdomen: normal bowel sounds, non tender, soft, no organomegaly, no pulsatile mass Extremities: non-tender, normal inspection, no pedal edema, no calf tenderness Laboratory Results Last 24 Hours Test 11/13/17 19:00 11/13/17 19:29 11/13/17 21:53 11/14/17 06:02 White Blood Count 9.60 K/uL Red Blood Count 4.68 M/uL Hemoglobin 15.6 g/dL Hematocrit 44.4 % Mean Corpuscular Volume 94.9 fL Mean Corpuscular Hemoglobin 33.3 pg Mean Corpuscular Hemoglobin Concent 35.1 g/dl Platelet Count 325 K/uL Mean Platelet Volume 9.2 fL Neutrophils (%) (Auto) 58.2 % Lymphocytes (%) (Auto) 32.9 % Monocytes (%) (Auto) 5.9 % Eosinophils (%) (Auto) 2.3 % Basophils (%) (Auto) 0.4 % Neutrophils # (Auto) 5.58 K/uL Lymphocytes # (Auto) 3.16 K/uL Monocytes # (Auto) 0.57 K/uL Eosinophils # (Auto) 0.22 K/uL Basophils # (Auto) 0.04 K/uL RDW Standard Deviation 44.7 fL RDW Coefficient of Variation 13.0 % Immature Granulocyte % (Auto) 0.3 % Immature Granulocyte # (Auto) 0.03 K/uL Prothrombin Time 9.4 SECONDS Prothromb Time International Ratio 0.9 Activated Partial Thromboplast Time 26.5 SECONDS Partial Thromboplastin Ratio 1.0 Sodium Level 134 mmol/L Potassium Level 3.7 mmol/L Chloride Level 104 mmol/L Carbon Dioxide Level 22 mmol/L Anion Gap 8.0 mmol/L Blood Urea Nitrogen 9 mg/dl Creatinine 1.01 mg/dl Est Creatinine Clear Calc Drug Dose 90.8 ml/min Estimated GFR () 84.7 Estimated GFR (Non- 73.1 BUN/Creatinine Ratio 9.0 Random Glucose 113 mg/dl Calcium Level 8.8 mg/dl Total Bilirubin 0.3 mg/dl Direct Bilirubin < 0.1 mg/dl Aspartate Amino Transf (AST/SGOT) 17 U/L Alanine Aminotransferase (ALT/SGPT) 42 U/L Alkaline Phosphatase 117 U/L Total Creatine Kinase 72 U/L Creatine Kinase MB < 0.5 ng/ml Creatine Kinase MB Ratio Troponin I < 0.015 ng/ml Total Protein 7.5 gm/dl Albumin 3.5 gm/dl Lipase 197 U/L Thyroid Stimulating Hormone (TSH) 2.390 uIu/ml Urine Color YELLOW Urine Appearance CLOUDY Urine pH 8.0 Urine Specific Mina 1.019 Urine Protein NEG Urine Glucose (UA) NEG Urine Ketones NEG Urine Occult Blood NEG Urine Nitrite NEG Urine Bilirubin NEG Urine Urobilinogen NEG Urine Leukocyte Esterase NEG Urine WBC (Auto) 0 /hpf Urine RBC (Auto) 10-30 /hpf Urine Hyaline Casts (Auto) 1-5 /lpf Urine Epithelial Cells (Auto) 10-20 /lpf Urine Bacteria (Auto) NEG Test 11/14/17 06:18 11/14/17 16:41 Troponin I < 0.015 ng/ml Assessment and Plan Ms. Wick is a 32 year old female who presented to [facility] with hypertensive urgency. Hypertensive Urgency and tachycardia - prn Hydralazine for systolic > 180 or symptoms - troponins negative - investigating secondary causes of hypertension - has been on antihypertensives since age 25. - renal doppler negative for renal artery stenosis - awaiting aldosterone and renin levels, cortisol level, and 24 hour urinary metanephrines - overnight pulse ox for possible sleep apnea. should consider sleep study as outpatient - continue carvedilol 6.25 mg BID - added losartan/hctz daily - follow - trial one dose lorazepam - Check echo Mood Disorder - continue Nortriptyline 50 mg hs GERD - continue protonix 40 mg Tobacco Abuse - smoking cessation counselling - prn nicotine patch DVT prophylaxis: SCD, heparin bid Code: Full Disposition: likely d/c tomorrow Resident Tracking Resident Involvement: Resident Care Provided Care Provided: Adult Hospital Medicine Reviewed: Pt Seen/Exam by Me History no more headache, visual disturbance feels foggy in head though. hasn't gotten much sleep overnight since admission Constitutional: denies: fever Respiratory: negative: short of breath Cardiovascular: denies chest pain General Appearance: no apparent distress Respiratory: lungs clear, no respiratory distress Cardiovascular: regular rate, rhythm Neurologic/Psychiatric: alert, oriented x 3 Skin Characteristics: warm/dry Assessment/Plan Resident Physician Supervision Note: I independently interviewed and examined the patient and verified the cantor history and physical, reviewed labs and image studies, discussed the case with the resident Dr. Hassan and agree with the findings and care plan.
[2017-11-14] MEDS ORDERED: NICOTINE 7 MG/24 HR TDSY TD PRN (17:15)
[2017-11-14] MEDS ORDERED: METOPROLOL TARTRATE 1 MG/ML VIAL IV STA (18:25)
[2017-11-14] MEDS ORDERED: METOPROLOL TARTRATE 1 MG/ML VIAL ONE (18:27)
[2017-11-14] MEDS: ONDANSETRON INJ 2 MG/ML 2 ML VIAL IV PRN ×2 (18:46→23:16)
[2017-11-14] MEDS: CARVEDILOL 6.25 MG TAB PO SCH (19:20)
[2017-11-14] MEDS ORDERED: TRAMADOL HCL 50 MG TAB PO STA (19:27)
[2017-11-14] MEDS ORDERED: hydrOXYzine HCL 25 MG TAB PO PRN (23:00)
[2017-11-14] MEDS ORDERED: KETOROLAC TROMETHAMINE 30 MG/ML VIAL IV PRN (23:00)
[2017-11-14] MEDS ORDERED: ONDANSETRON INJ 2 MG/ML 2 ML VIAL IV STA (23:14)
[2017-11-14] MEDS ORDERED: SODIUM CHLORIDE 0.9% 1000ML 1,000 ML IV ONE (23:15)
[2017-11-15] MEDS: NORTRIPTYLINE HCL 25 MG CAP PO SCH (00:10)
[2017-11-15 04:35] VITALS: BP 132/73; PULSE 95; TEMP 36.5; O2SAT 95
[2017-11-15] MEDS ORDERED: PERFLUTREN LIPID MICROSPHERE (DEFINITY) IV ONE (07:00)
[2017-11-15] MEDS: PANTOprazole SOD 40 MG TAB PO SCH (07:55)
[2017-11-15] MEDS: HEPARIN SOD 5000 UNIT/0.5 ML CARP SQ SCH (07:56)
[2017-11-15] MEDS: CARVEDILOL 6.25 MG TAB PO SCH (07:56)
[2017-11-15 07:57] VITALS: BP 133/82; PULSE 102; TEMP 36.9; O2SAT 97
[2017-11-15 08:00] VITALS: O2SAT 97
[2017-11-15] MEDS ORDERED: LOSARTAN/HCTZ 50-12.5 EA TAB PO SCH (09:00)
[2017-11-15] MEDS ORDERED: LOSARTAN POTASSIUM 50 MG TAB PO SCH (09:00)
--- NOTE | 2017-11-15 09:31 | ECHOCARDIOGRAM REPORT ---
*NOTICE TO RECEIVING DEMOCRAT AGENCY This information is strictly Confidential and protected under [place] law. [place] law prohibits you from making any further disclosure of this information unless further disclosure is expressly permitted by the written consent of the person to whom it pertains or is authorized by law. A general authorization for the release of medical or other information is not sufficient for this purpose. Hospital accepts no responsibility if the information is made available to any other person, INCLUDING THE PATIENT. Interpretation Summary * Name: ROSETTE ADLER Study Date: 11/15/2017 06:25 AM BP: 132/73 mmHg * Patient Location: .2E\S\E205\S\1 HR: 95 * : 1985 (M/d/yyyy) Gender: Female Height: 65 in * Age: 32 yrs Ethnicity: CA Weight: 210 lb * Ordering Physician: Ana Hassan * Referring Physician: Self, Referred * Performed By: Jessica Dee RDCS * * Reason For Study: Hypertension * BSA: 2.0 m2 * -- Conclusions -- * There is normal left ventricular wall thickness. * The left ventricle is hyperdynamic. Procedure Details * A complete two-dimensional transthoracic echocardiogram was performed (2D, M-mode, Doppler and color flow Doppler). * A contrast injection of Definity was performed to improve assessment of LV function. * Contrast was injected into an intravenous site in the left arm. * One vial of Definity ultrasound contrast was diluted in normal saline to a total volume of 10 ml. A total of '2' ml of solution was administered during imaging. * Lot # [id number] of Definity utilized for procedure. * Expiration date 1 JAN 20. * The attending nurse who injected the contrast agent was Moo Davis RN. Left Ventricle * The left ventricle is normal in size. * There is normal left ventricular wall thickness. * Ejection Fraction = >70 %. * The left ventricle is hyperdynamic. * The left ventricular wall motion is normal. Right Ventricle * The right ventricle is normal in size and function. Atria * The left atrial size is normal. * Right atrial size is normal. Mitral Valve * The mitral valve anatomy is normal. * There is no mitral regurgitation noted. Tricuspid Valve * The tricuspid valve anatomy is normal. * Significant tricuspid regurgitation is absent. Aortic Valve * The aortic valve is normal in structure and function. * The aortic valve is trileaflet. * No hemodynamically significant valvular aortic stenosis. * No aortic regurgitation is present. Great Vessels * The aortic root is normal size. Pericardium/Pleural * There is no pericardial effusion. MMode 2D Measurements and Calculations IVSd 1.1 cm LVIDd 3.8 cm LVIDs 2.1 cm LVPWd 1.4 cm IVS/LVPW 0.79 FS 43.2 % EDV(Teich) 60.2 ml ESV(Teich) 15.0 ml EF(Teich) 75.2 % EDV(cubed) 52.9 ml ESV(cubed) 9.7 ml EF(cubed) 81.7 % LV mass(C)d 164.3 grams LV mass(C)dI 81.3 grams/m\S\2 SV(Teich) 45.3 ml SI(Teich) 22.4 ml/m\S\2 SV(cubed) 43.3 ml SI(cubed) 21.4 ml/m\S\2 Ao root diam 2.6 cm Ao root area 5.1 cm\S\2 ACS 1.8 cm LA dimension 3.2 cm asc Aorta Diam 2.6 cm LA/Ao 1.2 LVOT diam 1.9 cm LVOT area 2.9 cm\S\2 LVAd ap4 22.2 cm\S\2 LVLd ap4 7.3 cm EDV(MOD-sp4) 58.3 ml EDV(sp4-el) 57.7 ml LVAs ap4 7.9 cm\S\2 LVLs ap4 5.9 cm ESV(MOD-sp4) 10.7 ml ESV(sp4-el) 9.0 ml EF(MOD-sp4) 81.7 % EF(sp4-el) 84.5 % LVAd ap2 16.8 cm\S\2 LVLd ap2 5.9 cm EDV(MOD-sp2) 40.4 ml EDV(sp2-el) 40.3 ml LVAs ap2 5.6 cm\S\2 LVLs ap2 4.4 cm ESV(MOD-sp2) 6.1 ml ESV(sp2-el) 6.0 ml EF(MOD-sp2) 85.0 % EF(sp2-el) 85.2 % LVLd %diff -22.57 % EDV(MOD-bp) 53.0 ml LVLs %diff -34.09 % ESV(MOD-bp) 9.0 ml EF(MOD-bp) 83.1 % SV(MOD-sp4) 47.6 ml SI(MOD-sp4) 23.6 ml/m\S\2 SV(MOD-sp2) 34.3 ml SI(MOD-sp2) 17.0 ml/m\S\2 SV(MOD-bp) 44.0 ml SI(MOD-bp) 21.8 ml/m\S\2 SV(sp4-el) 48.8 ml SI(sp4-el) 24.2 ml/m\S\2 SV(sp2-el) 34.3 ml SI(sp2-el) 17.0 ml/m\S\2 Doppler Measurements and Calculations MV E max smitha 78.6 cm/sec MV A max smitha 76.6 cm/sec MV E/A 1.0 MV dec time 0.21 sec Ao V2 max 139.8 cm/sec Ao max PG 7.8 mmHg Ao max PG (full) 2.6 mmHg SARAH(V,A) 2.4 cm\S\2 SARAH(V,D) 2.4 cm\S\2 LV V1 max PG 5.3 mmHg LV V1 max 114.7 cm/sec PA V2 max 108.6 cm/sec PA max PG 4.7 mmHg PA acc slope 727.1 cm/sec\S\2 PA acc time 0.13 sec TR max smitha 107.2 cm/sec PA pr(Accel) 22.0 mmHg
--- NOTE | 2017-11-15 10:10 | Nephrology Consultation ---
Nephrology Consultation Date & Providers Date of Consultation: Nov 15, 2017. Primary Care Provider: No Doctor, Assigned Referring Provider: Allergies Coded Allergies: Cefaclor (Verified Allergy, Severe, ANAPHILAXIS, 11/13/17) Inpatient Medications Current Inpatient Medications Medications (Trade) Dose Ordered Sig/Rajwinder Route Start Time Stop Time Status Last Admin Dose Admin Heparin Sodium (Porcine) (Heparin Sq 5000 Unit/0.5ml) 5,000 unit Q12 SQ 11/14/17 09:00 12/14/17 08:59 Acetaminophen (Tylenol Tab) 650 mg Q4H PRN PO 11/13/17 22:30 12/13/17 22:29 11/14/17 16:19 650 MG Al Hydrox/Mg Hydrox/Simethicone (Maalox Max Susp) 15 ml Q4H PRN PO 11/13/17 22:30 12/13/17 22:29 Magnesium Hydroxide (Milk Of Magnesia Susp) 30 ml Q12H PRN PO 11/13/17 22:30 12/13/17 22:29 Ondansetron HCl (Zofran Inj) 4 mg Q6H PRN IV 11/13/17 22:30 12/13/17 22:29 11/14/17 18:46 4 MG Nitroglycerin (Nitrostat Tab) 0.4 mg UD PRN SL 11/13/17 22:30 12/13/17 22:29 Morphine Sulfate (MoRPHine SULFATE INJ) 2 mg Q30M PRN IV 11/13/17 22:30 11/27/17 22:29 Hydralazine HCl (HydrALAZINE INJ) 5 mg Q4H PRN IV. 11/13/17 22:30 12/13/17 22:29 11/14/17 18:01 5 MG Nortriptyline HCl (Pamelor Cap) 50 mg HS PO 11/14/17 21:00 12/14/17 20:59 11/15/17 00:10 50 MG Pantoprazole Sodium (Protonix Tab) 40 mg QAM PO 11/14/17 09:00 12/14/17 08:59 11/15/17 07:55 40 MG Zolpidem Tartrate (Ambien Tab) 5 mg HS PRN PO 11/14/17 02:00 12/14/17 01:59 Tizanidine HCl (Zanaflex Tab) 4 mg HS PO 11/14/17 21:00 12/14/17 20:59 11/15/17 00:10 4 MG Losartan Potassium (coZAAR TAB) 50 mg QAM PO 11/15/17 09:00 12/15/17 08:59 11/15/17 07:56 50 MG Carvedilol (Coreg Tab) 6.25 mg BID PO 11/14/17 21:00 12/14/17 20:59 11/15/17 07:56 6.25 MG Nicotine (Nicoderm Cq 7 Mg Patch) 1 patch DAILY PRN TD 11/14/17 17:15 12/14/17 17:14 11/14/17 22:02 1 PATCH Miscellaneous (Remove Nicoderm Patch) 1 ea HS N/A 11/14/17 21:00 12/14/17 20:59 Ketorolac Tromethamine (Toradol Inj) 30 mg Q6H PRN IV 11/14/17 23:00 11/19/17 22:59 11/14/17 23:10 30 MG Hydroxyzine HCl (Vistaril Tab) 25 mg HSZ PRN PO 11/14/17 23:00 12/14/17 22:59 11/15/17 00:10 25 MG HCTZ/Losartan Potassium (Hyzaar 50-12.5 Tab) 1 tab QAM PO 11/15/17 09:00 12/15/17 08:59 11/15/17 09:19 1 TAB Family History Heart disease Hypertension Social History Smoking Status: Current Every Day Smoker Smokeless Tobacco Use: No Alcohol Use: none Drug Use: none Marital Status: single Occupation: employed Review of Systems A complete review of systems was performed. Pertinent positives are noted above. All other systems are negative. Physical Exam Date Time Temp Pulse Resp B/P (MAP) Pulse Ox O2 Delivery O2 Flow Rate FiO2 11/15/17 08:00 97 Room Air 11/15/17 07:57 36.9 102 16 133/82 (99) 97 Room Air 11/15/17 06:00 Room Air 11/15/17 04:36 Room Air 11/15/17 04:35 36.5 95 18 132/73 (92) 95 Room Air 11/14/17 23:59 Room Air 11/14/17 23:20 36.6 111 18 148/100 (116) 97 Room Air 11/14/17 20:32 136/96 (109) 11/14/17 20:00 Room Air 11/14/17 19:05 36.4 112 22 148/90 (109) 96 Room Air 11/14/17 18:40 130 172/116 11/14/17 17:56 130 171/120 (137) 172/116 (134) 11/14/17 16:10 162/107 (125) 11/14/17 16:00 Room Air 11/14/17 15:15 36.5 110 22 170/114 (132) 97 Room Air 11/14/17 13:30 166/108 (127) 11/14/17 12:31 180/120 (140) 159/119 (132) 11/14/17 12:09 36.8 97 16 155/94 (114) 96 Room Air 11/14/17 12:00 Room Air Laboratory Results Last 24 Hours Test 11/14/17 17:05 11/14/17 18:52 Random Cortisol 8.62 mcg/dl D-Dimer 330 ug/L FEU
[2017-11-15] MEDS ORDERED: HYZ/50125 PO (11:27)
[2017-11-15] MEDS ORDERED: LOSA100T33 PO (11:33)
[2017-11-15 11:40] VITALS: BP 138/93; PULSE 104; TEMP 36.9; O2SAT 95
--- NOTE | 2017-11-15 11:53 | Nephrology Consultation ---
Nephrology Consultation Date & Providers Date of Consultation: Nov 15, 2017. Primary Care Provider: No Doctor, Assigned Referring Provider: Reason for Consultation Evaluation of hypertension History of Present Illness Miss Wick is a 32 year old white female who is seen at the request of Dr. Mesa for evaluation of hypertension. Medical records in the hospital EMR were reviewed and are summarized as follows: Miss Wick resides in [place], [place] her PCP is Dr. Waleska Hollis with [facility]. Her medical history is significant for onset of HTN at 26 years of age managed w/ Carvedilol therapy. Over the last year she has required dose titration up to Carvedilol 6.25 mg po BID. Her blood pressure has been averaging 140 mm HG with this dose. She has no known h/o thyroid disease, adrenal disease, vascular disease or renal insufficiency. Miss Wick does smoke cigarettes 1/2 ppd x 15 years. She denies the use of OTC medications (NSAIDS, cough/cold preps, herbal supplements , black licorice). She has two brothers who were diagnosed w/ HTN in their late 20's. Miss Wick denies previous hospitalization for uncontrolled HTN. She has not had episodes of flushing, tachycardia, anxiety or diarrhea associated w/ high blood pressure. She has not been checking her blood pressure at home on a regular basis. She does not yet own an automatic blood pressure cuff. 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 On 11/12 while eating in the cafeteria she developed blurred vision, flushing and bilateral arm numbness. She was evaluated in the ED were initial bp was 248/149. CXR was negative for infiltrate, head CT was negative for mass or bleed and renal US revealed mild asymmetry without obstruction. Renal artery doppler had limited visibility of renal arteries but no definitive TED reported. Serum creatinine was 1.0 and urine sediment was acellular. TSH was wnl. ECG revealed sinus tachycardia. Echocardiogram revealed hyperdynamic LVEF 70% without LVH, normal RV function, no valvular abnormality and normal aortic root. Blood pressure was controlled w/ Carvedilol 6.25 mg BID and the addition of Cozaar 50 mg po daily. Past Medical/Surgical History Medical: # HTN diagnosed at 26 years of age # Depression # Jaw clenching treated w/ muscle relaxant # GERD on PPI therapy # h/o migraine FLORES Surgical: # Welcome teeth extraction # Cervix biopsy - benign Allergies Coded Allergies: Cefaclor (Verified Allergy, Severe, ANAPHILAXIS, 11/13/17) Inpatient Medications Current Inpatient Medications Medications (Trade) Dose Ordered Sig/Rajwinder Route Start Time Stop Time Status Last Admin Dose Admin Heparin Sodium (Porcine) (Heparin Sq 5000 Unit/0.5ml) 5,000 unit Q12 SQ 11/14/17 09:00 12/14/17 08:59 Acetaminophen (Tylenol Tab) 650 mg Q4H PRN PO 11/13/17 22:30 12/13/17 22:29 11/14/17 16:19 650 MG Al Hydrox/Mg Hydrox/Simethicone (Maalox Max Susp) 15 ml Q4H PRN PO 11/13/17 22:30 12/13/17 22:29 Magnesium Hydroxide (Milk Of Magnesia Susp) 30 ml Q12H PRN PO 11/13/17 22:30 12/13/17 22:29 Ondansetron HCl (Zofran Inj) 4 mg Q6H PRN IV 11/13/17 22:30 12/13/17 22:29 11/14/17 18:46 4 MG Nitroglycerin (Nitrostat Tab) 0.4 mg UD PRN SL 11/13/17 22:30 12/13/17 22:29 Morphine Sulfate (MoRPHine SULFATE INJ) 2 mg Q30M PRN IV 11/13/17 22:30 11/27/17 22:29 Hydralazine HCl (HydrALAZINE INJ) 5 mg Q4H PRN IV. 11/13/17 22:30 12/13/17 22:29 11/14/17 18:01 5 MG Nortriptyline HCl (Pamelor Cap) 50 mg HS PO 11/14/17 21:00 12/14/17 20:59 11/15/17 00:10 50 MG Pantoprazole Sodium (Protonix Tab) 40 mg QAM PO 11/14/17 09:00 12/14/17 08:59 11/15/17 07:55 40 MG Zolpidem Tartrate (Ambien Tab) 5 mg HS PRN PO 11/14/17 02:00 12/14/17 01:59 Tizanidine HCl (Zanaflex Tab) 4 mg HS PO 11/14/17 21:00 12/14/17 20:59 11/15/17 00:10 4 MG Losartan Potassium (coZAAR TAB) 50 mg QAM PO 11/15/17 09:00 12/15/17 08:59 11/15/17 07:56 50 MG Carvedilol (Coreg Tab) 6.25 mg BID PO 11/14/17 21:00 12/14/17 20:59 11/15/17 07:56 6.25 MG Nicotine (Nicoderm Cq 7 Mg Patch) 1 patch DAILY PRN TD 11/14/17 17:15 12/14/17 17:14 11/14/17 22:02 1 PATCH Miscellaneous (Remove Nicoderm Patch) 1 ea HS N/A 11/14/17 21:00 12/14/17 20:59 Ketorolac Tromethamine (Toradol Inj) 30 mg Q6H PRN IV 11/14/17 23:00 11/19/17 22:59 11/14/17 23:10 30 MG Hydroxyzine HCl (Vistaril Tab) 25 mg HSZ PRN PO 11/14/17 23:00 12/14/17 22:59 11/15/17 00:10 25 MG HCTZ/Losartan Potassium (Hyzaar 50-12.5 Tab) 1 tab QAM PO 11/15/17 09:00 12/15/17 08:59 11/15/17 09:19 1 TAB Family History Heart disease Hypertension Both parents and two brothers (age 25 & 27) with HTN. No FHx of CKD / ESRD Social History Smoking Status: Current Every Day Smoker Smokeless Tobacco Use: No Alcohol Use: none Drug Use: none Marital Status: single Occupation: employed Single. No children. 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 Daily tobacco use 1/2 ppd x 15 years. Alcohol use 2 - 3 drinks / day. Review of Systems Constitutional: No fever Eyes: No worsening of vision, No eye pain ENT: No hearing loss Respiratory: No cough, No sputum, No wheezing Cardiovascular: No chest pain Abdomen: No pain, No vomiting, No diarrhea Genitourinary - Female: No dysuria, No hematuria Integumentary: No rash A complete review of systems was performed. Pertinent positives are noted above. All other systems are negative. Physical Exam Date Time Temp Pulse Resp B/P (MAP) Pulse Ox O2 Delivery O2 Flow Rate FiO2 11/15/17 08:00 97 Room Air 11/15/17 07:57 36.9 102 16 133/82 (99) 97 Room Air 11/15/17 06:00 Room Air 11/15/17 04:36 Room Air 11/15/17 04:35 36.5 95 18 132/73 (92) 95 Room Air 11/14/17 23:59 Room Air 11/14/17 23:20 36.6 111 18 148/100 (116) 97 Room Air 11/14/17 20:32 136/96 (109) 11/14/17 20:00 Room Air 11/14/17 19:05 36.4 112 22 148/90 (109) 96 Room Air 11/14/17 18:40 130 172/116 11/14/17 17:56 130 171/120 (137) 172/116 (134) 11/14/17 16:10 162/107 (125) 11/14/17 16:00 Room Air 11/14/17 15:15 36.5 110 22 170/114 (132) 97 Room Air 11/14/17 13:30 166/108 (127) 11/14/17 12:31 180/120 (140) 159/119 (132) 11/14/17 12:09 36.8 97 16 155/94 (114) 96 Room Air 11/14/17 12:00 Room Air General Appearance: WD/WN, no apparent distress Head: normocephalic, atraumatic Eyes: PERRL, EOMI ENT: pharynx normal Neck: no adenopathy, + pertinent finding (no carotid bruit. No thyromegally) Respiratory/Chest: lungs clear, normal breath sounds, no respiratory distress Cardiovascular: regular rate, rhythm, no murmur Abdomen/GI: normal bowel sounds, non tender, soft, + pertinent finding (no aortic or renal arterial bruit. Kidneys are nonpalpable) Back: no CVA tenderness Extremities/Musculoskelatal: no calf tenderness, no pedal edema, + pertinent finding (symmetric radial pulses. Palpable DP & PT pulses. No femoral artery bruit) Neurologic/Psych: alert, oriented x 3 Laboratory Results Last 24 Hours Test 11/14/17 17:05 12/14/17 18:52 Random Cortisol 8.62 mcg/dl D-Dimer 330 ug/L FEU Impression (1) HTN (hypertension) (2) Acquired asymmetrical kidneys (3) Migraine headache (4) Tobacco dependence due to cigarettes (5) Depression (6) Chronic GERD Early onset hypertension concerning for a secondary cause. Patient is clinically euthyroid. TSH is wnl. She does not appear cushingoid. Nonfasting BSG < 200 and random serum cortisol is within normal limits. She does not have hypokalemic metabolic alkalosis to suggest hyperaldosteronism. Serum creatinine is higher than expected at 1.0. Urine sediment is acellular but renal US shows mild asymmetry concerning for TED or FMD. Renal artery doppler was indeterminate. Patient does have symmetric pulses. There were no carotid, abdominal or femoral artery bruits to my exam today. Recommendations -- Patient was in the process of being discharged to home at the time of my evaluation -- Continue Carvedilol and Cozaar at current doses -- Patient was instructed to purchase an automatic blood pressure cuff and bring this to her next office visit. She is to check her blood pressure 2 - 3 x / week -- 24 hour urine VMA, metanephrine, renin / aldosterone and 5 - HIAA have been ordered by primary service. Will review results as outpatient -- Patient requires smoking cessation counseling -- Will provide education on low sodium diet as outpatient -- Will obtain follow up PRP as outpatient -- Will ask supervisor dog license officer staff to contact patient and schedule hospital follow up visit in 7 - 14 days -- Discussed differential diagnosis with patient at length today. Explained that she will likely require further imaging of the renal arteries including MRA and possibly renal artery angiography. Patient voiced understanding.
[2017-11-15 12:00] VITALS: O2SAT 97
[2017-11-15 12:05] VITALS: BP 138/93; PULSE 104; TEMP 36.9; O2SAT 97
[2017-11-17] MEDS ORDERED: ZNF/4 PO (18:56)
[2017-11-18 15:33] LABS: CATECH NOREPINEPRHINE 619 pg/mL; NORMETANEPHRINE PLASMA 100 pg/mL (<=148); TOTAL METANEPHRINE PLASMA 100 pg/mL (<=205)
== END 2017-11-15 12:34 | disposition home or self-care (01) | DRG 305 ==
LOC: C.EDB 18:40 → C.2E 22:30 → ENRESERV 22:34 → CANRESERV 22:38 → ENRESERV 22:38 → ENRESERVTM 22:38 → ENRESERVDT 22:38 → ENRESERV 22:42
PROVIDERS: ADMIT Hospitalist; ATTEND Family Medicine
DX: I16.0 Hypertensive urgency (principal); R00.0 Tachycardia, unspecified; F32.9 Major depressive disorder, single episode, unspecified; K21.9 Gastro-esophageal reflux disease without esophagitis; F17.200 Nicotine dependence, unspecified, uncomplicated; Z79.899 Other long term (current) drug therapy

== ENCOUNTER 2017-11-17 19:09 | Inpatient (IN) | payer OTHER ==
[~2017-11-17] VITALS: Ht 165.1 cm; Wt 92.2 kg
[~2017-11-17 19:09] MED LIST changes: -CRG625 PO; -GADAVIST IV PRN; +IUD'IUD; +LOSA100T33 PO; -NRT/50 PO; -OMEP40CA41 PO; +ZNF/4 PO
[2017-11-17] MEDS ORDERED: LOSA100T33 PO (19:58)
[2017-11-17] MEDS ORDERED: ETON1IMP2 INTRAD (19:58)
[2017-11-17 20:02] LABS: BASO % 0.5 %; BASO ABS # 0.05 K/uL (0-0.2); COMPLETE YES; EOS % 1.7 %; IG% 0.3 %; LYMPH ABS # 3.08 K/uL (1.2-3.4); MEAN CELL VOLUME 94.2 fL (80-100); MEAN CORPUSCULAR HEMOGLOBIN 32.9 pg (25-34); MEAN CORPUSCULAR HGB CONC 34.9 g/dl (32-36); MEAN PLATELET VOLUME 9.1 fL (7.4-10.4); MONO % 8.8 %; NEUT % 58.7 %; PLATELET COUNT 355 K/uL (130-400); WHITE BLOOD COUNT 10.27 K/uL (4.8-10.8)
[2017-11-17 20:13] LABS: PARTIAL THROMBOPLASTIN RATIO 1.1
--- NOTE | 2017-11-17 20:13 | DIAGNOSTIC IMAGING REPORT ---
CHEST ONE VIEW PORTABLE CLINICAL HISTORY: 32 years-old Female presenting with EVALUATE WEAKNESS. TECHNIQUE: Portable upright AP view of the chest was obtained. COMPARISON: 11/13/2017. FINDINGS: Cardiomediastinal silhouette normal. Minimal bandlike opacity at the left lung base. Lungs and pleural spaces otherwise clear. Osseous structures normal. Upper abdomen normal. IMPRESSION: 1. Minimal left basilar atelectasis. Otherwise no acute cardiopulmonary disease. Electronically signed by: Solomon Gaitan M.D. 11/17/2017 8:11 PM Dictated Date/Time: 11/17/2017 8:11 PM
[2017-11-17 20:18] LABS: ALT/SGPT 40 U/L (12-78); AST/SGOT 16 U/L (15-37); BLOOD UREA NITROGEN 14 mg/dl (7-18); BUN/CREATININE RATIO 12.6 (10-20); CALCIUM 9.4 mg/dl (8.5-10.1); CARBON DIOXIDE 26 mmol/L (21-32); CHLORIDE 100 mmol/L (98-107); CREATININE 1.14 mg/dl (0.60-1.20); GLUCOSE 97 mg/dl (70-99); MAGNESIUM 2.1 mg/dl (1.8-2.4); POTASSIUM 3.9 mmol/L (3.5-5.1); SODIUM 132 mmol/L (136-145)
[2017-11-17 20:26] LABS: ALKALINE PHOSPHATASE 100 U/L (45-117); C-REACTIVE PROTEIN < 0.29 mg/dl (0-0.29); CKMB/CK RATIO 1.1 (0-3.0)
[2017-11-17] MEDS ORDERED: CARVEDILOL 6.25 MG TAB PO STA (20:27)
[2017-11-17] MEDS ORDERED: SPIRONOLACTONE 25 MG TAB PO ONE (20:30)
--- NOTE | 2017-11-17 21:47 | DIAGNOSTIC IMAGING REPORT ---
ABDOMEN NO IV/ORAL CONT (CT) CLINICAL HISTORY: 32 years-old Female presenting with severe htn, tachycardia, upper abd pain. TECHNIQUE: Multidetector CT of the abdomen was performed without the use of intravenous contrast. IV contrast: None. A dose lowering technique was used consistent with the principles of ALARA (as low as reasonably achievable). COMPARISON: None. CT DOSE (mGy.cm): The estimated cumulative dose is 1850.58. FINDINGS: Anesthesiology Fellow topogram: Unremarkable. Lung bases: Lung bases clear. Normal heart size. No pericardial or pleural effusion. Liver: Normal morphology. Normal density. Biliary: No gross biliary ductal dilatation allowing for noncontrast technique. Normal gallbladder. Pancreas: Normal noncontrast appearance. Spleen: Normal noncontrast appearance. Splenule noted. Adrenal glands: 2 nodules in the left adrenal gland. The more medial lesion measures 1.9 cm in diameter with a mean density of -12 Hounsfield units. The more lateral lesion measures 1.8 cm and has a mean density of -15 Hounsfield units. These are both consistent with benign adenomas. The right adrenal gland is normal. Kidneys and ureters: Normal noncontrast appearance. No nephrolithiasis. No hydronephrosis. Normal proximal ureters. Bowel: Normal appendix. No bowel obstruction. Peritoneal cavity: No free fluid or intraperitoneal gas. Lymph nodes: No gross lymphadenopathy allowing for noncontrast technique. Vasculature: Normal noncontrast appearance. Abdominal wall: Diastasis of the rectus abdominis. Musculoskeletal: Normal. IMPRESSION: 1. Findings consistent with 2 benign left adrenal adenomas measuring 1.9 cm and 1.8 cm. These are likely functional and account for the patient's symptomatology. Electronically signed by: Solomon Gaitan M.D. 11/17/2017 9:46 PM Dictated Date/Time: 11/17/2017 9:39 PM
[2017-11-17] MEDS ORDERED: NRT/50 PO (21:54)
[2017-11-17] MEDS ORDERED: OMEP40CA41 PO (21:54)
[2017-11-17] MEDS ORDERED: CRG625 PO (21:54)
--- NOTE | 2017-11-17 21:55 | DIAGNOSTIC IMAGING REPORT ---
ANGIO ABDOMEN WITH CONTRAST CLINICAL HISTORY: 32 years-old Female presenting with severe hypertension, tachycardia, upper abdominal pain. TECHNIQUE: Multidetector CT angiography of the abdomen was performed after the administration of intravenous contrast. 3-D volumetric and/or maximum intensity projection (MIP) images were subsequently reconstructed for review. IV contrast: 91 mL of Optiray 320. A dose lowering technique was used consistent with the principles of ALARA (as low as reasonably achievable). Stenosis measurements were based on NASCET-like criteria. COMPARISON: Noncontrast CT performed the same day. CT DOSE (mGy.cm): The estimated cumulative dose is 1850.78 mGy.cm. FINDINGS: Planer Off Bearer topogram: Unremarkable. Lung bases: Lung bases clear. Normal heart size. No pericardial or pleural effusion. Liver: Normal morphology. No liver lesion allowing for the arterial phase of contrast. Accessory left hepatic artery arising from the left gastric artery. Biliary: No gross biliary ductal dilatation allowing for arterial phase. Normal gallbladder. Pancreas: Normal. Spleen: Normal. Splenule noted. Adrenal glands: 2 adjacent nodules in the left adrenal gland, one in the medial limb measuring 1.9 cm and one in the lateral limb measuring up to 2.2 cm in diameter. These were both characterized as benign adenomas on noncontrast CT. Right adrenal gland normal. Kidneys and ureters: Normal. No hydronephrosis. Bladder: Normal. Pelvic organs: Uterus and ovaries normal. Tampon in place in the vagina. Bowel: Normal appendix. No bowel obstruction. Peritoneal cavity: No free fluid or intraperitoneal gas. Lymph nodes: No enlarged lymph nodes in the abdomen or pelvis. Vasculature: Aorta and IVC patent and normal in caliber. The renal arteries are normal in caliber and appearance without evidence of stenosis or luminal irregularity. The adrenal arteries are not well visualized. Abdominal wall: Diastasis of the rectus abdominis. Musculoskeletal: Normal. IMPRESSION: 1. No arterial abnormality. 2. Findings consistent with two benign left adrenal adenomas. Please see separately dictated noncontrast CT performed the same day. Electronically signed by: Solomon Gaitan M.D. 11/17/2017 9:54 PM Dictated Date/Time: 11/17/2017 9:48 PM
[2017-11-17 22:29] LABS: URINE APPEARANCE CLEAR (CLEAR); URINE BILIRUBIN NEG (NEG); URINE COLOR YELLOW; URINE EPITHELIAL CELL AUTO 20-30 /lpf (0-5); URINE NITRITE NEG (NEG); URINE SPECIFIC GRAVITY 1.017 (1.000-1.030); UROBILINOGEN NEG (NEG)
[2017-11-17 22:41] LABS: MANUAL MICROSCOPIC REQUIRED? NO; REVIEW REQ? NO
[2017-11-17] MEDS ORDERED: ZOLPIDEM TARTRATE 5 MG TAB PO PRN (23:15)
[2017-11-17] MEDS ORDERED: ACETAMINOPHEN 325 MG TAB PO PRN (23:15)
[2017-11-17] MEDS ORDERED: ONDANSETRON INJ 2 MG/ML 2 ML VIAL IV PRN (23:30)
[2017-11-17] MEDS ORDERED: CARVEDILOL 6.25 MG TAB PO ONE (23:30)
[2017-11-18] VITALS (8 sets, daily range): BP systolic 98–130; BP diastolic 65–88; PULSE 95–111; TEMP 36.5–37; O2SAT 95–99; Ht 165.1 cm; Wt 92.2 kg
[2017-11-18] MEDS: NORTRIPTYLINE HCL 25 MG CAP PO SCH ×2 (01:22→23:24)
[2017-11-18] MEDS: NSS + 20MEQ KCL 1000ML 1,000 ML IV SCH ×2 (01:40→15:57)
--- NOTE | 2017-11-18 01:50 | EMERGENCY ROOM VISIT NOTE ---
History Report prepared by Dwight: Odalys Lou Under the Supervision of: Dr. Yo Gates M.D. First contact with patient: 19:18 Chief Complaint: TACHYCARDIA Stated Complaint: TACHY History of Present Illness The patient is a 32 year old female who presents to the Emergency Room with complaints of persistent tachycardia that began a few days ago. The patient complains of generalized weakness, shortness of breath, fatigue, and nausea. She notes her symptoms worsen when she is moving around. She notes she feels "hot and sweaty". The patient was recently admitted because of severe hypertension and associated neurologic symptoms. That patient states that she called her radiology equipment servicer to discuss her symptoms, noting she was advised to come to the Emergency Department for further evaluation. The patient notes that the last time she checked her blood pressure prior to arrival it was 163/111. She states that her blood pressure medication does not relieve her symptoms. Pt denies LOC, headache, fevers, chills, diaphoresis, visual changes, neck pain, chest pain, abdominal pain, back pain, melena, hematochezia, urinary symptoms, numbness, lymphadenopathy, rash, or other complaints. Source of History: patient Onset: few days ago Position: other (global) Quality: other (tachycardia) Timing: other (persistent) Modifying Factors (Worsening): movement Associated Symptoms: + SOB, + nausea, + fatigue, + weakness, No neck pain, No chest pain, No vomiting, No abdominal pain, No back pain, No melena, No hematochezia, No diarrhea, No urinary symptoms Review of Systems See HPI for pertinent positives and negatives. A total of ten systems were reviewed and were otherwise negative. Past Medical & Surgical Medical Problems: (1) Acquired asymmetrical kidneys (2) Chest pain (3) Chronic GERD (4) Cough (5) Depression (6) HTN (hypertension) (7) Malignant hypertension (8) Migraine headache (9) SOB (shortness of breath) (10) Tobacco dependence due to cigarettes Family History Heart disease Hypertension Social History Smoking Status: Current Every Day Smoker Alcohol Use: occasionally Drug Use: none Marital Status: single Occupation Status: employed Current/Historical Medications Scheduled Carvedilol (Carvedilol), 6.25 MG PO BID Etonogestrel (Nexplanon), 68 MG INTRAD UD Hctz/Losartan (Hyzaar 12.5MG/100MG), 1 TAB PO DAILY Nortriptyline HCl (Nortriptyline HCl), 50 MG PO HS Omeprazole (Prilosec), 40 MG PO DAILY Tizanidine (Tizanidine HCl), 4 MG PO HS Allergies Coded Allergies: Cefaclor (Verified Allergy, Severe, ANAPHILAXIS, 11/13/17) Physical Exam Vital Signs Date Time Temp Pulse Resp B/P (MAP) Pulse Ox O2 Delivery O2 Flow Rate FiO2 11/17/17 23:12 114 11/17/17 23:01 146/90 11/17/17 23:00 115 23 11/17/17 22:31 146/84 11/17/17 22:30 122 17 11/17/17 22:01 131/110 11/17/17 22:00 112 29 11/17/17 21:54 109 18 133/93 98 Room Air 11/17/17 21:52 133/93 11/17/17 21:30 112 27 11/17/17 20:39 117 18 138/104 98 Room Air 11/17/17 19:47 114 18 154/102 98 Room Air 11/17/17 19:38 115 11/17/17 19:24 Room Air 11/17/17 19:11 36.7 137 20 154/101 98 Room Air Physical Exam GENERAL: Awake, alert, mildly ill-appearing, in no distress HENT: Normocephalic, atraumatic. Oropharynx unremarkable. EYES: Normal conjunctiva. Sclera non-icteric. NECK: Supple. No nuchal rigidity. FROM. No JVD. RESPIRATORY: Clear to auscultation. CARDIAC: Tachycardic rate, normal rhythm. Extremities warm and well perfused. Pulses equal. ABDOMEN: Soft, non-distended. No tenderness to palpation. No rebound or guarding. No masses. RECTAL: Deferred. MUSCULOSKELETAL: Chest examination reveals no tenderness. The back is symmetrical on inspection without obvious abnormality. There is no CVA tenderness to palpation. No joint edema. LOWER EXTREMITIES: Calves are equal size bilaterally and non-tender. No edema. No discoloration. NEURO: Normal sensorium. No sensory or motor deficits noted. SKIN: No rash or jaundice noted. Medical Decision & Procedures ER Provider Diagnostic Interpretation: Radiology results as stated below per my review and radiologist interpretation: ABDOMEN NO IV/ORAL CONT (CT) CLINICAL HISTORY: 32 years-old Female presenting with severe htn, tachycardia, upper abd pain. TECHNIQUE: Multidetector CT of the abdomen was performed without the use of intravenous contrast. IV contrast: None. A dose lowering technique was used consistent with the principles of ALARA (as low as reasonably achievable). COMPARISON: None. CT DOSE (mGy.cm): The estimated cumulative dose is 1850.58. FINDINGS: [employer] topogram: Unremarkable. Lung bases: Lung bases clear. Normal heart size. No pericardial or pleural effusion. Liver: Normal morphology. Normal density. Biliary: No gross biliary ductal dilatation allowing for noncontrast technique. Normal gallbladder. Pancreas: Normal noncontrast appearance. Spleen: Normal noncontrast appearance. Splenule noted. Adrenal glands: 2 nodules in the left adrenal gland. The more medial lesion measures 1.9 cm in diameter with a mean density of -12 Hounsfield units. The more lateral lesion measures 1.8 cm and has a mean density of -15 Hounsfield units. These are both consistent with benign adenomas. The right adrenal gland is normal. Kidneys and ureters: Normal noncontrast appearance. No nephrolithiasis. No hydronephrosis. Normal proximal ureters. Bowel: Normal appendix. No bowel obstruction. Peritoneal cavity: No free fluid or intraperitoneal gas. Lymph nodes: No gross lymphadenopathy allowing for noncontrast technique. Vasculature: Normal noncontrast appearance. Abdominal wall: Diastasis of the rectus abdominis. Musculoskeletal: Normal. IMPRESSION: 1. Findings consistent with 2 benign left adrenal adenomas measuring 1.9 cm and 1.8 cm. These are likely functional and account for the patient's symptomatology. Electronically signed by: Solomon Gaitan M.D. 11/17/2017 9:46 PM ANGIO ABDOMEN WITH CONTRAST CLINICAL HISTORY: 32 years-old Female presenting with severe hypertension, tachycardia, upper abdominal pain. TECHNIQUE: Multidetector CT angiography of the abdomen was performed after the administration of intravenous contrast. 3-D volumetric and/or maximum intensity projection (MIP) images were subsequently reconstructed for review. IV contrast: 91 mL of Optiray 320. A dose lowering technique was used consistent with the principles of ALARA (as low as reasonably achievable). Stenosis measurements were based on NASCET-like criteria. COMPARISON: Noncontrast CT performed the same day. CT DOSE (mGy.cm): The estimated cumulative dose is 1850.78 mGy.cm. FINDINGS: [employer] topogram: Unremarkable. Lung bases: Lung bases clear. Normal heart size. No pericardial or pleural effusion. Liver: Normal morphology. No liver lesion allowing for the arterial phase of contrast. Accessory left hepatic artery arising from the left gastric artery. Biliary: No gross biliary ductal dilatation allowing for arterial phase. Normal gallbladder. Pancreas: Normal. Spleen: Normal. Splenule noted. Adrenal glands: 2 adjacent nodules in the left adrenal gland, one in the medial limb measuring 1.9 cm and one in the lateral limb measuring up to 2.2 cm in diameter. These were both characterized as benign adenomas on noncontrast CT. Right adrenal gland normal. Kidneys and ureters: Normal. No hydronephrosis. Bladder: Normal. Pelvic organs: Uterus and ovaries normal. Tampon in place in the vagina. Bowel: Normal appendix. No bowel obstruction. Peritoneal cavity: No free fluid or intraperitoneal gas. Lymph nodes: No enlarged lymph nodes in the abdomen or pelvis. Vasculature: Aorta and IVC patent and normal in caliber. The renal arteries are normal in caliber and appearance without evidence of stenosis or luminal irregularity. The adrenal arteries are not well visualized. Abdominal wall: Diastasis of the rectus abdominis. Musculoskeletal: Normal. IMPRESSION: 1. No arterial abnormality. 2. Findings consistent with two benign left adrenal adenomas. Please see separately dictated noncontrast CT performed the same day. Electronically signed by: Solomon Gaitan M.D. 11/17/2017 9:54 PM CHEST ONE VIEW PORTABLE CLINICAL HISTORY: 32 years-old Female presenting with EVALUATE WEAKNESS. TECHNIQUE: Portable upright AP view of the chest was obtained. COMPARISON: 11/13/2017. FINDINGS: Cardiomediastinal silhouette normal. Minimal bandlike opacity at the left lung base. Lungs and pleural spaces otherwise clear. Osseous structures normal. Upper abdomen normal. IMPRESSION: 1. Minimal left basilar atelectasis. Otherwise no acute cardiopulmonary disease. Electronically signed by: Solomon Gaitan M.D. 11/17/2017 8:11 PM Laboratory Results 11/17/17 19:41 Red Blood Count 5.20, Mean Corpuscular Volume 94.2, Mean Corpuscular Hemoglobin 32.9, Mean Corpuscular Hemoglobin Concent 34.9, Mean Platelet Volume 9.1, Neutrophils (%) (Auto) 58.7, Lymphocytes (%) (Auto) 30.0, Monocytes (%) (Auto) 8.8, Eosinophils (%) (Auto) 1.7, Basophils (%) (Auto) 0.5, Neutrophils # (Auto) 6.04, Lymphocytes # (Auto) 3.08, Monocytes # (Auto) 0.90, Eosinophils # (Auto) 0.17, Basophils # (Auto) 0.05 11/17/17 19:41 Test 11/17/17 19:41 11/17/17 20:35 White Blood Count 10.27 K/uL (4.8-10.8) Red Blood Count 5.20 M/uL (4.2-5.4) Hemoglobin 17.1 g/dL (12.0-16.0) Hematocrit 49.0 % (37-47) Mean Corpuscular Volume 94.2 fL (80-100) Mean Corpuscular Hemoglobin 32.9 pg (25-34) Mean Corpuscular Hemoglobin Concent 34.9 g/dl (32-36) Platelet Count 355 K/uL (130-400) Mean Platelet Volume 9.1 fL (7.4-10.4) Neutrophils (%) (Auto) 58.7 % Lymphocytes (%) (Auto) 30.0 % Monocytes (%) (Auto) 8.8 % Eosinophils (%) (Auto) 1.7 % Basophils (%) (Auto) 0.5 % Neutrophils # (Auto) 6.04 K/uL (1.4-6.5) Lymphocytes # (Auto) 3.08 K/uL (1.2-3.4) Monocytes # (Auto) 0.90 K/uL (0.11-0.59) Eosinophils # (Auto) 0.17 K/uL (0-0.5) Basophils # (Auto) 0.05 K/uL (0-0.2) RDW Standard Deviation 43.8 fL (36.4-46.3) RDW Coefficient of Variation 12.7 % (11.5-14.5) Immature Granulocyte % (Auto) 0.3 % Immature Granulocyte # (Auto) 0.03 K/uL (0.00-0.02) Erythrocyte Sedimentation Rate 22 mm/hr (0-21) Prothrombin Time 10.0 SECONDS (9.0-12.0) Prothromb Time International Ratio 1.0 (0.9-1.1) Activated Partial Thromboplast Time 28.2 SECONDS (21.0-31.0) Partial Thromboplastin Ratio 1.1 Anion Gap 6.0 mmol/L (3-11) Est Creatinine Clear Calc Drug Dose 79.0 ml/min Estimated GFR () 73.2 Estimated GFR (Non- 63.1 BUN/Creatinine Ratio 12.6 (10-20) Calcium Level 9.4 mg/dl (8.5-10.1) Magnesium Level 2.1 mg/dl (1.8-2.4) Total Bilirubin 0.4 mg/dl (0.2-1) Direct Bilirubin < 0.1 mg/dl (0-0.2) Aspartate Amino Transf (AST/SGOT) 16 U/L (15-37) Alanine Aminotransferase (ALT/SGPT) 40 U/L (12-78) Alkaline Phosphatase 100 U/L (45-117) Total Creatine Kinase 72 U/L (26-192) Creatine Kinase MB 0.8 ng/ml (0.5-3.6) Creatine Kinase MB Ratio 1.1 (0-3.0) Troponin I < 0.015 ng/ml (0-0.045) C-Reactive Protein < 0.29 mg/dl (0-0.29) Pro-B-Type Natriuretic Peptide 10 pg/ml (0-450) Total Protein 8.1 gm/dl (6.4-8.2) Albumin 3.8 gm/dl (3.4-5.0) Lipase 133 U/L (73-393) Thyroid Stimulating Hormone (TSH) 2.870 uIu/ml (0.300-4.500) Free Thyroxine 1.11 ng/dl (0.80-1.60) Free Triiodothyronine 3.80 pg/ml (2.30-4.20) Urine Color YELLOW Urine Appearance CLEAR (CLEAR) Urine pH 5.0 (4.5-7.5) Urine Specific [place] 1.017 (1.000-1.030) Urine Protein NEG (NEG) Urine Glucose (UA) NEG (NEG) Urine Ketones NEG (NEG) Urine Occult Blood TRACE (NEG) Urine Nitrite NEG (NEG) Urine Bilirubin NEG (NEG) Urine Urobilinogen NEG (NEG) Urine Leukocyte Esterase NEG (NEG) Urine WBC (Auto) 0 /hpf (0-5) Urine RBC (Auto) 5-10 /hpf (0-4) Urine Hyaline Casts (Auto) 0 /lpf (0-5) Urine Epithelial Cells (Auto) 20-30 /lpf (0-5) Urine Bacteria (Auto) NEG (NEG) Laboratory results reviewed by me Medications Administered Medications (Trade) Dose Ordered Sig/Rajwinder Route Start Time Stop Time Status Last Admin Dose Admin Carvedilol (Coreg Tab) 6.25 mg NOW STAT PO 11/17/17 20:27 11/17/17 20:28 DC 11/17/17 20:44 6.25 MG Spironolactone (Aldactone Tab) 25 mg NOW ONCE PO 11/17/17 20:30 11/17/17 20:31 DC 11/17/17 20:44 25 MG Carvedilol (Coreg Tab) 6.25 mg NOW ONCE PO 11/17/17 23:30 11/17/17 23:31 DC 11/17/17 23:41 6.25 MG ECG Indication: tachycardia Rate (beats per minute): 124 Rhythm: sinus rhythm Findings: no acute ischemic change, other (no pericarditis ) ED Course 1919: The patient was evaluated in room B11. A complete history and physical exam was performed. 1945: Discussed the patient's case with Dr. Gaitan, radiology. We discussed imaging and we came to agreement on CT of abdomen without contrast followed by a CTA. 1999: I reevaluated the patient, who was resting comfortably. I discussed the test results with the patient, who verbalized complete understanding. 2026: Ordered Carvedilol 6.25mg PO. 2029: Ordered Spironolactone 25mg PO. 2055: I reevaluated the patient and updated her on test results. 2133: Discussed the patient's case with Dr. Alfaro, nephrology. The patient will be evaluated for further treatment and disposition. 2234: Discussed the patient's case with Dr. Cortes [facility] [place]. The patient will be evaluated for further treatment and disposition. 2246: Discussed the patient's case with Dr. Estrada [facility] [place]. The patient will be evaluated for further treatment and disposition. I discussed the test results with the patient, who verbalized complete understanding and agreement of the treatment plan. 2254: Spoke with [facility], who confirmed her 24 hour labs are in process. Medical Decision Prior records/ancillary studies reviewed regarding the history above. Triage Nursing notes reviewed and agree them. Additional history obtained from the family. The patient's history was concerning for severe tachycardia and hypertension. Differential diagnosis: Etiologies such as hypertensive urgency, hypertensive emergency, benign hypertension, cardiovascular pathology, pheochromocytoma, renal artery stenosis , fibromuscular dysplasia, electrolyte abnormality, renal disease, endorgan damage, as well as others were entertained. Physical examination: As above. ER treatment provided: Oral Coreg Oral spironolactone On reassessment the patient felt somewhat better. Patient was still mildly hypertensive and mildly tachycardic. Diagnostic interpretation by me: The electrocardiogram was negative for pathologic change. Tachycardia noted. The labs revealed an unremarkable CBC and chemistry panel. Thyroid function and cardiac markers unremarkable. Confirmed with the lab that 24 hour urine specimens were collected and sent to [facility] for analysis. Imaging studies: CT of the abdomen as above. CT angiogram of the abdomen as above as well. The patient has severe hypertension and tachycardia. 24 hour urine studies were pending after her recent admission. Given the findings and presentation after just a short stay at home I felt additional imaging was necessary and I did discuss this with radiology. We concluded CT imaging would be the best screening tool and this revealed adrenal adenomas on the left side that appeared to be functional per radiology. This does raise possibilities for an endocrine secreting tumor. Further management will be necessary. The patient and family were educated. Consultation: A consultation was placed with nephrology merchandising consultant, Dr. Kishor Ramsay. The case was discussed. He knows the patient from her recent hospitalization. He felt additional testing regarding the adenoma as well as her renal vasculature was necessary. He was concerned as she has failed outpatient management of her blood pressure and a short time and is still very symptomatic. He recommended further management in the hospital to include MR imaging of the adenoma as well as MRA of the renal vasculature. A consultation was placed with the hospitalist ,Dr. Marcelo Porras. The case was discussed and diagnostics were reviewed. He recommended the addition of Coreg and spironolactone. The patient was evaluated in the ER for further treatment. Medication Reconcilliation Current Medication List: was personally reviewed by me Blood Pressure Screening Patient's blood pressure: Elevated blood pressure Blood pressure disposition: Referred to PCP (hospitalist) Consults Time Called: 1944 Consulting Physician: KELY Elliott Returned Call: 1946 Discussed the patient's case with Dr. Gaitan, radiology. We discussed imaging and we came to agreement on CT of abdomen without contrast followed by a CTA. Additional Consults: Time Called: 2132 Consulted Physician: Dr. Alfaro, nephrology Returned Call: 2133 Additional Comments: Discussed the patient's case with Dr. Alfaro, nephrology. The patient will be evaluated for further treatment and disposition. Time Called: 2234 Consulted Physician: KELY Badillo Returned Call: 2234 Additional Comments: Discussed the patient's case with KELY Badillo. 2246: Discussed with KELY Estes. The patient will be evaluated for further treatment and disposition. Impression Primary Impression: Malignant hypertension Additional Impressions: Tachycardia Adenoma of left adrenal gland Scribe Attestation The scribe's documentation has been prepared under my direction and personally reviewed by me in its entirety. I confirm that the note above accurately reflects all work, treatment, procedures, and medical decision making performed by me. Departure Information Dispostion Being Evaluated By Hospitalist Referrals No Doctor, Assigned (PCP) Forms HOME CARE DOCUMENTATION FORM, IMPORTANT VISIT INFORMATION, WORK / SCHOOL INSTRUCTIONS Patient Instructions My [facility] Problem Qualifiers
--- NOTE | 2017-11-18 04:34 | History and Physical ---
History & Physical Date & Time of Service: Nov 18, 2017 at 04:12. The patient was seen and examined on 11/17/2017 Chief Complaint: Malignant Hypertension Primary Care Physician: Waleska Liz D.O. History of Present Illness Source: patient, family, hospital records The patient is a 32-year-old female, most recently admitted to [facility] from November 13 through November 15 for malignant hypertension. At that time she was continued on her carvedilol 6.25 mg by mouth twice a day, and discharged on losartan/HCTZ 50/12.5 daily. Symptoms at that time included a generalized warm and flushing sensation, palpitations, and headaches. She called her outpatient classroom aide Dr. Ramsay today report of the same symptoms, and he advised a visit to the emergency department for assessment. Past Medical/Surgical History Medical Problems: (1) Chest pain Status: Resolved (2) Cough Status: Resolved (3) HTN (hypertension) Status: Chronic (4) SOB (shortness of breath) Status: Resolved Family History Heart disease Hypertension Social History Smoking Status: Current Every Day Smoker Smokeless Tobacco Use: No Drug Use: none Marital Status: single Occupational Status: employed Immunizations History of Influenza Vaccine: Unknown History of Tetanus Vaccine?: Unknown History of Pneumococcal: No History of Hepatitis B Vaccine: Unknown Multi-Drug Resistant Organisms History of MDRO: No Allergies Coded Allergies: Cefaclor (Verified Allergy, Severe, ANAPHILAXIS, 11/13/17) Home Medications Scheduled Carvedilol (Carvedilol), 6.25 MG PO BID Etonogestrel (Nexplanon), 68 MG INTRAD UD Hctz/Losartan (Hyzaar 12.5MG/100MG), 1 TAB PO DAILY Nortriptyline HCl (Nortriptyline HCl), 50 MG PO HS Omeprazole (Prilosec), 40 MG PO DAILY Tizanidine (Tizanidine HCl), 4 MG PO HS Review of Systems The patient denies chest pain, shortness of breath, cough, lower extremity swelling, vision change, hearing change, sore throat, fevers, chills, sweats, fatigue, nausea, vomiting, diarrhea or constipation, abdominal pain, pelvic pain, blood in urine or stool, dysuria, urinary frequency or urgency, lightheadedness , dizziness, memory loss, loss of consciousness, rash, abnormal bruising or bleeding, imbalance, focal or generalized weakness, numbness or tingling in arms or legs, generalized arthralgias or myalgias, back or neck pain, or night sweats. The review of systems is otherwise negative other than for that already noted above, and at least 10 systems have been reviewed. Physical Exam Vital Signs Date Time Temp Pulse Resp B/P (MAP) Pulse Ox O2 Delivery O2 Flow Rate FiO2 11/18/17 00:25 36.5 111 19 130/83 98 Room Air 11/18/17 00:19 111 18 144/101 98 11/17/17 23:12 114 11/17/17 23:01 146/90 11/17/17 23:00 115 23 11/17/17 22:31 146/84 11/17/17 22:30 122 17 11/17/17 22:01 131/110 11/17/17 22:00 112 29 11/17/17 21:54 109 18 133/93 98 Room Air 11/17/17 21:52 133/93 11/17/17 21:30 112 27 11/17/17 20:39 117 18 138/104 98 Room Air 11/17/17 19:47 114 18 154/102 98 Room Air 11/17/17 19:38 115 11/17/17 19:24 Room Air 11/17/17 19:11 36.7 137 20 154/101 98 Room Air The patient is awake, well-developed and adequately nourished, alert and oriented 3, normocephalic and atraumatic, lying in bed and in no acute distress. HEENT--PERRL, EOMI, mucous membranes and oropharynx normal. Neck--supple, no JVD or bruits, thyroid normal, trachea midline, no adenopathy. Heart--tachycardic and regular, no murmurs, rubs or gallops. Lungs--clear bilaterally with good air movement, no respiratory distress, no accessory muscle use. Abdomen--normal bowel sounds and soft, nontender and nondistended, no hernias or masses, no organomegaly. Extremities--no cyanosis, clubbing or edema. There are good distal pulses b/l. Dermatologic--normal skin turgor, normal color, warm and dry, no abnormal lymph nodes, no rash. Neurologic--cranial nerves II through XII grossly intact. Rheumatologic--normal range of motion. Psychiatric--normal affect. Diagnostics Laboratory Results Results Past 24 Hours Test 11/17/17 19:41 11/17/17 20:35 Range/Units White Blood Count 10.27 4.8-10.8 K/uL Red Blood Count 5.20 4.2-5.4 M/uL Hemoglobin 17.1 12.0-16.0 g/dL Hematocrit 49.0 37-47 % Mean Corpuscular Volume 94.2 80-100 fL Mean Corpuscular Hemoglobin 32.9 25-34 pg Mean Corpuscular Hemoglobin Concent 34.9 32-36 g/dl Platelet Count 355 130-400 K/uL Mean Platelet Volume 9.1 7.4-10.4 fL Neutrophils (%) (Auto) 58.7 % Lymphocytes (%) (Auto) 30.0 % Monocytes (%) (Auto) 8.8 % Eosinophils (%) (Auto) 1.7 % Basophils (%) (Auto) 0.5 % Neutrophils # (Auto) 6.04 1.4-6.5 K/uL Lymphocytes # (Auto) 3.08 1.2-3.4 K/uL Monocytes # (Auto) 0.90 0.11-0.59 K/uL Eosinophils # (Auto) 0.17 0-0.5 K/uL Basophils # (Auto) 0.05 0-0.2 K/uL RDW Standard Deviation 43.8 36.4-46.3 fL RDW Coefficient of Variation 12.7 11.5-14.5 % Immature Granulocyte % (Auto) 0.3 % Immature Granulocyte # (Auto) 0.03 0.00-0.02 K/uL Erythrocyte Sedimentation Rate 22 0-21 mm/hr Prothrombin Time 10.0 9.0-12.0 SECONDS Prothromb Time International Ratio 1.0 0.9-1.1 Activated Partial Thromboplast Time 28.2 21.0-31.0 SECONDS Partial Thromboplastin Ratio 1.1 Sodium Level 132 136-145 mmol/L Potassium Level 3.9 3.5-5.1 mmol/L Chloride Level 100 98-107 mmol/L Carbon Dioxide Level 26 21-32 mmol/L Anion Gap 6.0 3-11 mmol/L Blood Urea Nitrogen 14 7-18 mg/dl Creatinine 1.14 0.60-1.20 mg/dl Est Creatinine Clear Calc Drug Dose 79.0 ml/min Estimated GFR () 73.2 Estimated GFR (Non- 63.1 BUN/Creatinine Ratio 12.6 10-20 Random Glucose 97 70-99 mg/dl Calcium Level 9.4 8.5-10.1 mg/dl Magnesium Level 2.1 1.8-2.4 mg/dl Total Bilirubin 0.4 0.2-1 mg/dl Direct Bilirubin < 0.1 0-0.2 mg/dl Aspartate Amino Transf (AST/SGOT) 16 15-37 U/L Alanine Aminotransferase (ALT/SGPT) 40 12-78 U/L Alkaline Phosphatase 100 45-117 U/L Total Creatine Kinase 72 26-192 U/L Creatine Kinase MB 0.8 0.5-3.6 ng/ml Creatine Kinase MB Ratio 1.1 0-3.0 Troponin I < 0.015 0-0.045 ng/ml C-Reactive Protein < 0.29 0-0.29 mg/dl Pro-B-Type Natriuretic Peptide 10 0-450 pg/ml Total Protein 8.1 6.4-8.2 gm/dl Albumin 3.8 3.4-5.0 gm/dl Lipase 133 73-393 U/L Thyroid Stimulating Hormone (TSH) 2.870 0.300-4.500 uIu/ml Free Thyroxine 1.11 0.80-1.60 ng/dl Free Triiodothyronine 3.80 2.30-4.20 pg/ml Urine Color YELLOW Urine Appearance CLEAR CLEAR Urine pH 5.0 4.5-7.5 Urine Specific Elroy 1.017 1.000-1.030 Urine Protein NEG NEG Urine Glucose (UA) NEG NEG Urine Ketones NEG NEG Urine Occult Blood TRACE NEG Urine Nitrite NEG NEG Urine Bilirubin NEG NEG Urine Urobilinogen NEG NEG Urine Leukocyte Esterase NEG NEG Urine WBC (Auto) 0 0-5 /hpf Urine RBC (Auto) 5-10 0-4 /hpf Urine Hyaline Casts (Auto) 0 0-5 /lpf Urine Epithelial Cells (Auto) 20-30 0-5 /lpf Urine Bacteria (Auto) NEG NEG Microbiology Results 11/17/17 Urine Culture, Received Pending Diagnostic Radiology Patient Name: ROSETTE ADLER Unit Number: [id number] Dictated: 11/17/172010 Transcribed: 11/17/172010 PBS Printed Date/Time: [~ rep prt dt]/[~ rep prt tm] [~ rep ct labl] - [~ rep ct ivnm] [facility] Radiology Department [place] [id number] Dictated: 11/17/172010 Transcribed: 11/17/172010 PBS Printed Date/Time: [~ rep prt dt]/[~ rep prt tm] [~ rep ct labl] - [~ rep ct ivnm] [~ rep ct add3]] CHEST ONE VIEW PORTABLE CLINICAL HISTORY: 32 years-old Female presenting with EVALUATE WEAKNESS. TECHNIQUE: Portable upright AP view of the chest was obtained. COMPARISON: 11/13/2017. FINDINGS: Cardiomediastinal silhouette normal. Minimal bandlike opacity at the left lung base. Lungs and pleural spaces otherwise clear. Osseous structures normal. Upper abdomen normal. IMPRESSION: 1. Minimal left basilar atelectasis. Otherwise no acute cardiopulmonary disease. Electronically signed by: Solomon Gaitan M.D. 11/17/2017 8:11 PM Dictated Date/Time: 11/17/2017 8:11 PM The status of this report is Signed. Draft = Not yet reviewed or approved by Radiologist. Signed = Reviewed and approved by Radiologist. <AttendingPhy></AttendingPhy> <FamilyPhy>Waleska Liz D.O.</ FamilyPhy> <PrimaryPhy>Waleska Liz D.O.</PrimaryPhy> <UnitNumber> [id number]</UnitNumber> <VisitNumber>[id number]</VisitNumber> <PatientName> ROSETTE ADLER</PatientName> <DateOfBirth>1985</DateOfBirth> <Location >C.EDB</Location> <ServiceDate>11/17/17</ServiceDate> <MNE>ESINDI</MNE> < OrderingPhy>Yo Gates MD</OrderingPhy> <OrderingPhyMNE>f rep ord dr rojas </OrderingPhyMNE> <DictatingPhyMNE>f rep dict dr rojas</DictatingPhyMNE> < CCListMNE>f rep ct mne</CCListMNE> <AdmittingPhyMNE>f pt admit dr rojas</ AdmittingPhyMNE> <AttendingPhyMNE>f pt attend dr rojas</AttendingPhyMNE> <ConsultingPhyMNE>f pt consult dr rojas</ConsultingPhyMNE> <FamilyPhyMNE>f pt fam dr rojas</FamilyPhyMNE> <OtherPhyMNE>f pt other dr rojas</OtherPhyMNE> < PrimaryPhyMNE>f pt prim care dr rojas</PrimaryPhyMNE> <ReferringPhyMNE>f pt referring dr rojas</ReferringPhyMNE> Patient Name: ROSETTE ADLER Unit Number: [id number] Dictated: 11/17/172147 Transcribed: 11/17/172147 PBS Printed Date/Time: [~ rep prt dt]/[~ rep prt tm] [~ rep ct labl] - [~ rep ct ivnm] [facility] Radiology Department [place] [id number] Dictated: 11/17/172147 Transcribed: 11/17/172147 PBS Printed Date/Time: [~ rep prt dt]/[~ rep prt tm] [~ rep ct labl] - [~ rep ct ivnm] [~ rep ct add3]] ANGIO ABDOMEN WITH CONTRAST CLINICAL HISTORY: 32 years-old Female presenting with severe hypertension, tachycardia, upper abdominal pain. TECHNIQUE: Multidetector CT angiography of the abdomen was performed after the administration of intravenous contrast. 3-D volumetric and/or maximum intensity projection (MIP) images were subsequently reconstructed for review. IV contrast: 91 mL of Optiray 320. A dose lowering technique was used consistent with the principles of ALARA (as low as reasonably achievable). Stenosis measurements were based on NASCET-like criteria. COMPARISON: Noncontrast CT performed the same day. CT DOSE (mGy.cm): The estimated cumulative dose is 1850.78 mGy.cm. FINDINGS: Plastics Plater topogram: Unremarkable. Lung bases: Lung bases clear. Normal heart size. No pericardial or pleural effusion. Liver: Normal morphology. No liver lesion allowing for the arterial phase of contrast. Accessory left hepatic artery arising from the left gastric artery. Biliary: No gross biliary ductal dilatation allowing for arterial phase. Normal gallbladder. Pancreas: Normal. Spleen: Normal. Splenule noted. Adrenal glands: 2 adjacent nodules in the left adrenal gland, one in the medial limb measuring 1.9 cm and one in the lateral limb measuring up to 2.2 cm in diameter. These were both characterized as benign adenomas on noncontrast CT. Right adrenal gland normal. Kidneys and ureters: Normal. No hydronephrosis. Bladder: Normal. Pelvic organs: Uterus and ovaries normal. Tampon in place in the vagina. Bowel: Normal appendix. No bowel obstruction. Peritoneal cavity: No free fluid or intraperitoneal gas. Lymph nodes: No enlarged lymph nodes in the abdomen or pelvis. Vasculature: Aorta and IVC patent and normal in caliber. The renal arteries are normal in caliber and appearance without evidence of stenosis or luminal irregularity. The adrenal arteries are not well visualized. Abdominal wall: Diastasis of the rectus abdominis. Musculoskeletal: Normal. IMPRESSION: 1. No arterial abnormality. 2. Findings consistent with two benign left adrenal adenomas. Please see separately dictated noncontrast CT performed the same day. Electronically signed by: Solomon Gaitan M.D. 11/17/2017 9:54 PM Dictated Date/Time: 11/17/2017 9:48 PM The status of this report is Signed. Draft = Not yet reviewed or approved by Radiologist. Signed = Reviewed and approved by Radiologist. <AttendingPhy></AttendingPhy> <FamilyPhy>Waleska Liz D.O.</ FamilyPhy> <PrimaryPhy>Waleska Liz D.O.</PrimaryPhy> <UnitNumber> [id number]</UnitNumber> <VisitNumber>[id number]</VisitNumber> <PatientName> ROSETTE ADLER</PatientName> <DateOfBirth>1985</DateOfBirth> <Location >[facility]</Location> <ServiceDate>11/17/17</ServiceDate> <MNE>ESINDI</MNE> < OrderingPhy>Yo Gates MD</OrderingPhy> <OrderingPhyMNE>f rep ord dr rojas </OrderingPhyMNE> <DictatingPhyMNE>f rep dict dr rojas</DictatingPhyMNE> < CCListMNE>f rep ct mne</CCListMNE> <AdmittingPhyMNE>f pt admit dr rojas</ AdmittingPhyMNE> <AttendingPhyMNE>f pt attend dr rojas</AttendingPhyMNE> <ConsultingPhyMNE>f pt consult dr rojas</ConsultingPhyMNE> <FamilyPhyMNE>f pt fam dr rojas</FamilyPhyMNE> <OtherPhyMNE>f pt other dr rojas</OtherPhyMNE> < PrimaryPhyMNE>f pt prim care dr rojas</PrimaryPhyMNE> <ReferringPhyMNE>f pt referring dr rojas</ReferringPhyMNE> Patient Name: ROSETTE ADLER Unit Number: [id number] Dictated: 11/17/172138 Transcribed: 11/17/172138 PBS Printed Date/Time: [~ rep prt dt]/[~ rep prt tm] [~ rep ct labl] - [~ rep ct ivnm] [facility] Radiology Department [place] [id number] Dictated: 11/17/172138 Transcribed: 11/17/172138 PBS Printed Date/Time: [~ rep prt dt]/[~ rep prt tm] [~ rep ct labl] - [~ rep ct ivnm] [~ rep ct add3]] ABDOMEN NO IV/ORAL CONT (CT) CLINICAL HISTORY: 32 years-old Female presenting with severe htn, tachycardia, upper abd pain. TECHNIQUE: Multidetector CT of the abdomen was performed without the use of intravenous contrast. IV contrast: None. A dose lowering technique was used consistent with the principles of ALARA (as low as reasonably achievable). COMPARISON: None. CT DOSE (mGy.cm): The estimated cumulative dose is 1850.58. FINDINGS: Plastics Plater topogram: Unremarkable. Lung bases: Lung bases clear. Normal heart size. No pericardial or pleural effusion. Liver: Normal morphology. Normal density. Biliary: No gross biliary ductal dilatation allowing for noncontrast technique. Normal gallbladder. Pancreas: Normal noncontrast appearance. Spleen: Normal noncontrast appearance. Splenule noted. Adrenal glands: 2 nodules in the left adrenal gland. The more medial lesion measures 1.9 cm in diameter with a mean density of -12 Hounsfield units. The more lateral lesion measures 1.8 cm and has a mean density of -15 Hounsfield units. These are both consistent with benign adenomas. The right adrenal gland is normal. Kidneys and ureters: Normal noncontrast appearance. No nephrolithiasis. No hydronephrosis. Normal proximal ureters. Bowel: Normal appendix. No bowel obstruction. Peritoneal cavity: No free fluid or intraperitoneal gas. Lymph nodes: No gross lymphadenopathy allowing for noncontrast technique. Vasculature: Normal noncontrast appearance. Abdominal wall: Diastasis of the rectus abdominis. Musculoskeletal: Normal. IMPRESSION: 1. Findings consistent with 2 benign left adrenal adenomas measuring 1.9 cm and 1.8 cm. These are likely functional and account for the patient's symptomatology. Electronically signed by: Solomon Gaitan M.D. 11/17/2017 9:46 PM Dictated Date/Time: 11/17/2017 9:39 PM The status of this report is Signed. Draft = Not yet reviewed or approved by Radiologist. Signed = Reviewed and approved by Radiologist. <AttendingPhy></AttendingPhy> <FamilyPhy>Waleska Liz D.O.</ FamilyPhy> <PrimaryPhy>Waleska Liz D.O.</PrimaryPhy> <UnitNumber> [id number]</UnitNumber> <VisitNumber>[id number]</VisitNumber> <PatientName> ROSETTE ADLER</PatientName> <DateOfBirth>1985</DateOfBirth> <Location >[facility]</Location> <ServiceDate>11/17/17</ServiceDate> <MNE>ESINDI</MNE> < OrderingPhy>Yo Gates MD</OrderingPhy> <OrderingPhyMNE>f rep ord dr rojas </OrderingPhyMNE> <DictatingPhyMNE>f rep dict dr rojas</DictatingPhyMNE> < CCListMNE>f rep ct mne</CCListMNE> <AdmittingPhyMNE>f pt admit dr rojas</ AdmittingPhyMNE> <AttendingPhyMNE>f pt attend dr rojas</AttendingPhyMNE> <ConsultingPhyMNE>f pt consult dr rojas</ConsultingPhyMNE> <FamilyPhyMNE>f pt fam dr rojas</FamilyPhyMNE> <OtherPhyMNE>f pt other dr rojas</OtherPhyMNE> < PrimaryPhyMNE>f pt prim care dr rojas</PrimaryPhyMNE> <ReferringPhyMNE>f pt referring dr rojas</ReferringPhyMNE> Patient Name: ROSETTE ADLER Unit Number: [id number] Dictated: 11/14/17706 Transcribed: 11/14/17706 MS Printed Date/Time: [~ rep prt dt]/[~ rep prt tm] [~ rep ct labl] - [~ rep ct ivnm] [facility] [place] [place] [address] Dictated: 11/14/17706 Transcribed: 11/14/17706 MS Printed Date/Time: [~ rep prt dt]/[~ rep prt tm] [~ rep ct labl] - [~ rep ct ivnm] [~ rep ct add3]] DUPLEX RENAL ARTERY CLINICAL HISTORY: assess for RTA hypertension TECHNIQUE: Ultrasound COMPARISON STUDY: None FINDINGS: Study limited due to patient body habitus. Right kidney measures 9.7 cm. No evidence for hydronephrosis. Limited visibility of the vasculature shows no increase in velocities. Left kidney measures 12 cm. No evidence for hydronephrosis. No significant increase in renal arterial vasculature. IMPRESSION: Limited study showing no significant arterial stenotic change. The above report was generated using voice recognition software. It may contain grammatical, syntax or spelling errors. Electronically signed by: Roland Jensen M.D. 11/14/2017 7:08 AM Dictated Date/Time: 11/14/2017 7:07 AM The status of this report is Signed. Draft = Not yet reviewed or approved by Radiologist. Signed = Reviewed and approved by Radiologist. <AttendingPhy>Marcelo Porras M.D.</AttendingPhy> <FamilyPhy>No Doctor, Assigned</FamilyPhy> <PrimaryPhy>No Doctor, Assigned</PrimaryPhy> <UnitNumber> [id number]</UnitNumber> <VisitNumber>[id number]</VisitNumber> <PatientName> ROSETTE ADLER</PatientName> <DateOfBirth>1985</DateOfBirth> <Location >C[facility]E</Location> <ServiceDate>11/13/17</ServiceDate> <MNE>ESINDI</MNE> < OrderingPhy>Carla Duffy MD</OrderingPhy> <OrderingPhyMNE>f rep ord dr rojas</ OrderingPhyMNE> <DictatingPhyMNE>f rep dict dr rojas</DictatingPhyMNE> <CCListMNE> f rep ct mne</CCListMNE> <AdmittingPhyMNE>f pt admit dr rojas</AdmittingPhyMNE> < AttendingPhyMNE>f pt attend dr rojas</AttendingPhyMNE> <ConsultingPhyMNE>f pt consult dr rojas</ConsultingPhyMNE> <FamilyPhyMNE>f pt fam dr rojas</FamilyPhyMNE> <OtherPhyMNE>f pt other dr rojas</OtherPhyMNE> < PrimaryPhyMNE>f pt prim care dr rojas</PrimaryPhyMNE> <ReferringPhyMNE>f pt referring dr rojas</ReferringPhyMNE> Patient Name: ROSETTE ADLER Unit Number: [id number] Dictated: 11/13/172136 Transcribed: 11/13/172136 [facility] Printed Date/Time: [~ rep prt dt]/[~ rep prt tm] [~ rep ct labl] - [~ rep ct ivnm] [facility] [place] [place] [address] Dictated: 11/13/172136 Transcribed: 11/13/172136 JRB Printed Date/Time: [~ rep prt dt]/[~ rep prt tm] [~ rep ct labl] - [~ rep ct ivnm] [~ rep ct add3]] HEAD WITHOUT CONTRAST (CT) CLINICAL HISTORY: 32 years-old Female with severe hypertension, blurred vision, right arm numbness. Acute hypertension TECHNIQUE: Multiple axial CT images of the head were obtained without contrast. A dose lowering technique was utilized adhering to the principles of ALARA. CT DOSE: 537.48 mGy.cm COMPARISON: Head CT 11/30/2011, brain MR 10/21/2017. FINDINGS: No acute intracranial hemorrhage, midline shift, intracranial mass, hydrocephalus, territorial ischemia or abnormal extra-axial collection. The calvarium is intact. The paranasal sinuses, mastoid air cells, and middle ear cavities are clear. IMPRESSION: No acute intracranial abnormality. The above report was generated using voice recognition software. It may contain grammatical, syntax or spelling errors. Electronically signed by: Campbell Kc M.D. 11/13/2017 9:39 PM Dictated Date/Time: 11/13/2017 9:37 PM The status of this report is Signed. Draft = Not yet reviewed or approved by Radiologist. Signed = Reviewed and approved by Radiologist. <AttendingPhy></AttendingPhy> <FamilyPhy>No Doctor, Assigned</FamilyPhy> < PrimaryPhy>No Doctor, Assigned</PrimaryPhy> <UnitNumber>[id number]</UnitNumber> <VisitNumber>[id number]</VisitNumber> <PatientName>ROSETTE ADLER</ PatientName> <DateOfBirth>1985</DateOfBirth> <Location>C.EDB</Location> < ServiceDate>11/13/17</ServiceDate> <MNE>ESINDI</MNE> <OrderingPhy>Yo Gates MD</OrderingPhy> <OrderingPhyMNE>f rep ord dr rojas</OrderingPhyMNE> < DictatingPhyMNE>f rep dict dr rojas</DictatingPhyMNE> <CCListMNE>f rep ct bob</ CCListMNE> <AdmittingPhyMNE>f pt admit dr rojas</AdmittingPhyMNE> <AttendingPhyMNE >f pt attend dr rojas</AttendingPhyMNE> <ConsultingPhyMNE>f pt consult dr rojas</ConsultingPhyMNE> <FamilyPhyMNE>f pt fam dr rojas</FamilyPhyMNE> <OtherPhyMNE>f pt other dr rojas</OtherPhyMNE> < PrimaryPhyMNE>f pt prim care dr rojas</PrimaryPhyMNE> <ReferringPhyMNE>f pt referring dr rojas</ReferringPhyMNE> Patient Name: ROSETTE ADLER Unit Number: [id number] Dictated: 10/21/171501 Transcribed: 10/21/171501 ARG Printed Date/Time: [~ rep prt dt]/[~ rep prt tm] [~ rep ct labl] - [~ rep ct ivnm] [facility] Radiology Department [place] [id number] Dictated: 10/21/171501 Transcribed: 10/21/171501 ARG Printed Date/Time: [~ rep prt dt]/[~ rep prt tm] [~ rep ct labl] - [~ rep ct ivnm] [~ rep ct add3]] MRI OF THE BRAIN WITHOUT AND WITH IV CONTRAST CLINICAL HISTORY: VISUAL CHANGES; DIZZINESS HEADACHE COMPARISON STUDY: Noncontrast head CT dated 11/30/2011 TECHNIQUE: MRI of the brain was performed from the vertex to the skull base utilizing various T1 and T2 weighted sequences. Following the IV administration of 9 mL of Gadavist contrast, additional enhanced images were obtained. FINDINGS: Sagittal T1, axial diffusion, proton density and T2 weighted axial, coronal FLAIR, and pre and post axial T1-weighted images were acquired. These were supplemented with post gadolinium coronal T1 weighted images. No intra or extra-axial mass lesions are visualized. Axial diffusion-weighted images reveal no evidence of acute or subacute infarction. There is no evidence of ventricular dilatation. Proton density T2-weighted and FLAIR images reveal no significant intraparenchymal signal abnormalities. A very subtle focus of increased FLAIR signal in the region of the right insular cortex, is too subtle to be considered a true lesion. There are no abnormal flow voids. There is no evidence of pathologic enhancement. IMPRESSION: No significant abnormalities. Electronically signed by: Aaron Barajas M.D. 10/21/2017 3:05 PM Dictated Date/Time: 10/21/2017 3:02 PM The status of this report is Signed. Draft = Not yet reviewed or approved by Radiologist. Signed = Reviewed and approved by Radiologist. <AttendingPhy>Waleska Liz D.O.</AttendingPhy> <FamilyPhy>Waleska Pandya D.O.</FamilyPhy> <PrimaryPhy>Waleska Liz D.O.</ PrimaryPhy> <UnitNumber>[id number]</UnitNumber> <VisitNumber>[id number]</ VisitNumber> <PatientName>ROSETTE ADLER A</PatientName> <DateOfBirth>1984</DateOfBirth> <Location>C.MRI</Location> <ServiceDate>10/21/17</ServiceDate > <MNE>ESINDI</MNE> <OrderingPhy>Waleska Liz D.O.</OrderingPhy> < OrderingPhyMNE>f rep ord dr rojas</OrderingPhyMNE> <DictatingPhyMNE>f rep dict dr rojas</DictatingPhyMNE> <CCListMNE>f rep ct mne</CCListMNE> <AdmittingPhyMNE>f pt admit dr rojas</AdmittingPhyMNE> <AttendingPhyMNE>f pt attend dr rojas</ AttendingPhyMNE> <ConsultingPhyMNE>f pt consult dr rojas</ConsultingPhyMNE> <FamilyPhyMNE>f pt fam dr rojas</FamilyPhyMNE> <OtherPhyMNE>f pt other dr rojas</OtherPhyMNE> < PrimaryPhyMNE>f pt prim care dr rojas</PrimaryPhyMNE> <ReferringPhyMNE>f pt referring dr rojas</ReferringPhyMNE> EKG EKG shows sinus tachycardia at 124 bpm, no acute ST-T changes, and no change compared to 11/13/2017 Impression Assessment and Plan Malignant hypertension-- The patient will be admitted to the telemetry unit. At the previous admission, she had been able to get relatively good blood pressure control with combination of carvedilol 6.25 mg by mouth twice a day and spironolactone 25 mg daily. She was discharged on November 15 on carvedilol 6.25 mg by mouth twice a day and losartan/HCTZ 50/12.5 daily She reports, because of her work schedule, she takes her medications at 1:00 in the afternoon and 1:00 in the morning. I have given her an additional carvedilol 6.25 mg tonight in the ED, and spironolactone 25 mg, and in a few hours, her vital signs are heart rate 111 and blood pressure 130/83. Until seen by Dr. Ramsay, she'll be admitted on carvedilol 12.5 mg by mouth twice a day and spironolactone 25 mg by mouth twice a day. MRI of brain on October [address] of brain on November 13 was negative. Renal ultrasound on November 13 was negative. CTA of the abdomen tonight shows 2 adrenal nodules on the left, 1.9 and 1.8 cm respectively. MRI of the abdomen combo and MRA attention kidneys and adrenal glands has been ordered. 24 hours studies for pheochromocytoma and serotonin syndrome are pending from last admission. Renin and aldosterone levels are pending from last admission. Tobacco use disorder-- Patient is aware of the need for cessation. Migraine headache prophylaxis-- Continue nortriptyline 50 mg and tizanidine 4 mg at bedtime. GERD--change omeprazole 40 mg by mouth daily to pantoprazole 40 mg by mouth daily Contraception-- Etonogestrel implant. Level of Care Telemetry Advanced Directives Existing Advance Directive: No Existing Living Will: No Existing Power of Cereal Miller: No Resuscitation Status FULL RESUSCITATION VTE Prophylaxis VTE Risk Assessment Done? Y/N: Yes Risk Level: Moderate Given or contraindicated: SCD's Social Service Consult None Apply
[2017-11-18 07:17] LABS: BASO % 0.5 %; BASO ABS # 0.05 K/uL (0-0.2); COMPLETE YES; EOS % 1.9 %; HEMATOCRIT 47.5 % (37-47); IG% 0.4 %; LYMPH % 32.3 %; MEAN CELL VOLUME 94.4 fL (80-100); MEAN CORPUSCULAR HEMOGLOBIN 32.8 pg (25-34); MEAN CORPUSCULAR HGB CONC 34.7 g/dl (32-36); MEAN PLATELET VOLUME 9.1 fL (7.4-10.4); MONO % 9.9 %; PLATELET COUNT 316 K/uL (130-400); RED BLOOD COUNT 5.03 M/uL (4.2-5.4); WHITE BLOOD COUNT 10.53 K/uL (4.8-10.8)
[2017-11-18 07:47] LABS: BUN/CREATININE RATIO 12.8 (10-20); CALCIUM 9.2 mg/dl (8.5-10.1); MAGNESIUM 2.2 mg/dl (1.8-2.4); POTASSIUM 3.9 mmol/L (3.5-5.1)
[2017-11-18] MEDS: PANTOprazole SOD 40 MG TAB PO SCH (08:05)
[2017-11-18] MEDS: CARVEDILOL 12.5 MG TAB PO SCH ×2 (08:05→23:23)
[2017-11-18] MEDS: SPIRONOLACTONE 25 MG TAB PO SCH ×2 (08:05→16:02)
[2017-11-18] MEDS: NICOTINE 21 MG/24 HR TDSY TD SCH (08:06)
[2017-11-18] MEDS ORDERED: GADAVIST IV PRN (12:30)
--- NOTE | 2017-11-18 12:40 | DIAGNOSTIC IMAGING REPORT ---
MRA ABDOMEN COMBO CLINICAL HISTORY: Malignant hypertension. Evaluate for renal artery stenosis. COMPARISON STUDY: CT scan dated 11/17/2017, renal ultrasound dated 11/13/2017 FINDINGS: MR angiography was performed following administration of 9 cc of intravenous Gadavist. There is no evidence of abdominal aortic aneurysm. There is no hydronephrosis. There is 8 mm T2 bright right renal lesion, likely represent a cyst. There are single bilateral renal arteries. There is no evidence of renal artery stenosis. There is no evidence of celiac or superior mesenteric artery stenosis. The inferior mesenteric artery is patent IMPRESSION: No evidence of arterial stenosis. Electronically signed by: Aaron Barajas M.D. 11/18/2017 12:39 PM Dictated Date/Time: 11/18/2017 12:31 PM
--- NOTE | 2017-11-18 13:09 | DIAGNOSTIC IMAGING REPORT ---
ABDOMEN COMBO CLINICAL HISTORY: 32 years-old Female presenting with ATTENTION KIDNEYS/ADRENALS, adrenal adenoma, elevated blood pressure and heart rate. TECHNIQUE: Multisequence, multiplanar MR imaging of the abdomen was performed before and after the administration of intravenous contrast. IV contrast: 9 mL of Gadavist. COMPARISON: Noncontrast CT performed the previous day. FINDINGS: Localizer images: Unremarkable. Lung bases: Lung bases clear. Normal heart size. No pericardial or pleural effusion. Liver: Normal morphology. No liver lesion. Hepatic fat fraction measures 3%, which is normal. Patent hepatic vasculature. Biliary: No intrahepatic or extrahepatic biliary ductal dilatation. Normal gallbladder. Pancreas: Normal. Spleen: Normal. Adrenal glands: Redemonstration of the two T2 hypointense adjacent nodules in the left adrenal gland, one in the medial limb measuring 1.8 cm with an adrenal signal intensity index of 51.2% indicative of a lipid rich adenoma, and one in the lateral limb measuring 2.2 cm with an adrenal signal intensity index of 76.4% also indicative of a lipid rich adenoma. The right adrenal gland is normal. Kidneys and ureters: Well-defined T2 hyperintense nonenhancing lesion in the right kidney consistent with simple cyst. No hydronephrosis. Bowel: Normal. No bowel obstruction. Peritoneal cavity: No free fluid or intraperitoneal gas. Lymph nodes: No enlarged lymph nodes in the abdomen. Vasculature: Aorta and IVC patent and normal in caliber. Abdominal wall: Normal. Musculoskeletal: Normal. IMPRESSION: 1. Two adjacent nodules in the left adrenal gland consistent with lipid rich adenomas. Electronically signed by: Solomon Gaitan M.D. 11/18/2017 1:08 PM Dictated Date/Time: 11/18/2017 1:01 PM
--- NOTE | 2017-11-18 13:35 | Medical Student: [facility] ---
Med Student Progress Note Date of Service Nov 18, 2017. Subjective Pt evaluation today including: conversation w/ patient, physical exam, chart review, lab review pt is a 32 yo F with a 6-year history of hypertension who presented to the ED after talking with otorhinolaryngologist Dr. Ramsay about her symptoms of malignant hypertension which included generalized warmth/flushing, palpitations, FLORES, fatigue, and exhaustion. She was hospitalized from 11/13/17 to 11/15/17 for the same symptoms when she had been on carvedilol 6.25 mg PO BID, and was discharged on losartan/HCTZ 50/12.5 daily. She has been doing better since admitted and is on carvedilol 12.5 mg PO BID and spironolactone 25 mg PO BID. Pt currently reports fatigue as she did not sleep well last night. She reports of some intermittent back pain. She reports smoking a half pack per day and a few alcohol beverages daily. Two adrenal adenomas were found on abdominal CT and w/u was started for pheochromocytoma, Dovray's, and hyperaldosteronism. Epinephrine, dopamine, and norepinephrine levels were within normal limits. MRA this morning demonstrates no evidence of renal arterial stenosis and abdominal MRI shows two lipid-rich adenomas on the left adrenal gland. Review of Systems Constitutional: No fever, No chills, No sweats, No weight loss Eyes: No worsening of vision ENT: No hearing loss Respiratory: No cough, No sputum, No wheezing, No shortness of breath Cardiac: No chest pain, No orthopnea Abdomen: No pain, No nausea Musculoskeletal: + see HPI, No joint pain Female : No dysuria, No urinary frequency Neurologic: No memory loss Psychiatric: No depression symptoms Endo: + fatigue Skin: No rash, No itch Objective Vital Signs Date Time Temp Pulse Resp B/P (MAP) Pulse Ox O2 Delivery O2 Flow Rate FiO2 11/18/17 12:52 36.6 102 18 122/88 (99) 97 Room Air 11/18/17 08:00 Room Air 11/18/17 07:21 36.9 95 18 113/66 (82) 99 11/18/17 06:30 98 121/75 (90) 11/18/17 05:23 37.0 106 16 98/65 (76) 97 Room Air 11/18/17 04:00 Room Air 11/18/17 00:25 36.5 111 19 130/83 98 Room Air 11/18/17 00:19 111 18 144/101 98 11/17/17 23:12 114 11/17/17 23:01 146/90 11/17/17 23:00 115 23 11/17/17 22:31 146/84 11/17/17 22:30 122 17 11/17/17 22:01 131/110 11/17/17 22:00 112 29 11/17/17 21:54 109 18 133/93 98 Room Air 11/17/17 21:52 133/93 11/17/17 21:30 112 27 11/17/17 20:39 117 18 138/104 98 Room Air 11/17/17 19:47 114 18 154/102 98 Room Air 11/17/17 19:38 115 11/17/17 19:24 Room Air 11/17/17 19:11 36.7 137 20 154/101 98 Room Air Physical Exam General Appearance: WD/WN, no apparent distress Eyes: bilateral eyes normal inspection, bilateral eyes PERRL, bilateral eyes EOMI ENT: normal ENT inspection, hearing grossly normal Neck: supple, no adenopathy, no JVD Respiratory/Chest: chest non-tender Cardiovascular: regular rate, rhythm, no edema, no gallop, no JVD Abdomen: normal bowel sounds, non tender, soft Extremities: normal range of motion, non-tender, normal inspection, no pedal edema 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3 % Monocytes (%) (Auto) 8.8 % 9.9 % Eosinophils (%) (Auto) 1.7 % 1.9 % Basophils (%) (Auto) 0.5 % 0.5 % Neutrophils # (Auto) 6.04 K/uL 5.80 K/uL Lymphocytes # (Auto) 3.08 K/uL 3.40 K/uL Monocytes # (Auto) 0.90 K/uL 1.04 K/uL Eosinophils # (Auto) 0.17 K/uL 0.20 K/uL Basophils # (Auto) 0.05 K/uL 0.05 K/uL RDW Standard Deviation 43.8 fL 44.7 fL RDW Coefficient of Variation 12.7 % 13.0 % Immature Granulocyte % (Auto) 0.3 % 0.4 % Immature Granulocyte # (Auto) 0.03 K/uL 0.04 K/uL Erythrocyte Sedimentation Rate 22 mm/hr Prothrombin Time 10.0 SECONDS Prothromb Time International Ratio 1.0 Activated Partial Thromboplast Time 28.2 SECONDS Partial Thromboplastin Ratio 1.1 Sodium Level 132 mmol/L 134 mmol/L Potassium Level 3.9 mmol/L 3.9 mmol/L Chloride Level 100 mmol/L 101 mmol/L Carbon Dioxide Level 26 mmol/L 24 mmol/L Anion Gap 6.0 mmol/L 9.0 mmol/L Blood Urea Nitrogen 14 mg/dl 13 mg/dl Creatinine 1.14 mg/dl 1.00 mg/dl Est Creatinine Clear Calc Drug Dose 79.0 ml/min 89.8 ml/min Estimated GFR () 73.2 85.7 Estimated GFR (Non- 63.1 74.0 BUN/Creatinine Ratio 12.6 12.8 Random Glucose 97 mg/dl 99 mg/dl Calcium Level 9.4 mg/dl 9.2 mg/dl Magnesium Level 2.1 mg/dl 2.2 mg/dl Total Bilirubin 0.4 mg/dl Direct Bilirubin < 0.1 mg/dl Aspartate Amino Transf (AST/SGOT) 16 U/L Alanine Aminotransferase (ALT/SGPT) 40 U/L Alkaline Phosphatase 100 U/L Total Creatine Kinase 72 U/L Creatine Kinase MB 0.8 ng/ml Creatine Kinase MB Ratio 1.1 Troponin I < 0.015 ng/ml C-Reactive Protein < 0.29 mg/dl Pro-B-Type Natriuretic Peptide 10 pg/ml Total Protein 8.1 gm/dl Albumin 3.8 gm/dl Lipase 133 U/L Thyroid Stimulating Hormone (TSH) 2.870 uIu/ml Free Thyroxine 1.11 ng/dl Free Triiodothyronine 3.80 pg/ml Urine Color YELLOW Urine Appearance CLEAR Urine pH 5.0 Urine Specific [place] 1.017 Urine Protein NEG Urine Glucose (UA) NEG Urine Ketones NEG Urine Occult Blood TRACE Urine Nitrite NEG Urine Bilirubin NEG Urine Urobilinogen NEG Urine Leukocyte Esterase NEG Urine WBC (Auto) 0 /hpf Urine RBC (Auto) 5-10 /hpf Urine Hyaline Casts (Auto) 0 /lpf Urine Epithelial Cells (Auto) 20-30 /lpf Urine Bacteria (Auto) NEG Medications Current Inpatient Medications Medications (Trade) Dose Ordered Sig/Rajwinder Route Start Time Stop Time Status Last Admin Dose Admin Potassium Chloride/Sodium Chloride 1,000 ml @ 75 mls/hr [id number] IV 11/18/17 02:00 12/18/17 01:59 11/18/17 01:40 75 MLS/HR Acetaminophen (Tylenol Tab) 650 mg Q4H PRN PO 11/17/17 23:15 12/17/17 23:14 11/18/17 06:35 650 MG Zolpidem Tartrate (Ambien Tab) 5 mg HSZ PRN PO 11/17/17 23:15 12/17/17 23:14 Ondansetron HCl (Zofran Inj) 4 mg Q6H PRN IV 11/17/17 23:30 12/17/17 23:29 Carvedilol (Coreg Tab) 12.5 mg BID PO 11/18/17 09:00 12/18/17 08:59 11/18/17 08:05 12.5 MG Tizanidine HCl (Zanaflex Tab) 4 mg HS PO 11/18/17 21:00 12/18/17 20:59 11/18/17 01:22 4 MG Nortriptyline HCl (Pamelor Cap) 50 mg HS PO 11/18/17 21:00 12/18/17 20:59 11/18/17 01:22 50 MG Pantoprazole Sodium (Protonix Tab) 40 mg QAM PO 11/18/17 09:00 12/18/17 08:59 11/18/17 08:05 40 MG Spironolactone (Aldactone Tab) 25 mg BID17 PO 11/18/17 09:00 12/18/17 08:59 11/18/17 08:05 25 MG Nicotine (Nicoderm Cq 21MG Patch) 1 patch QAM TD 11/18/17 09:00 12/18/17 08:59 11/18/17 08:06 1 PATCH Miscellaneous (Remove Nicoderm Patch) 1 ea HS N/A 11/18/17 21:00 12/18/17 20:59 Gadobutrol (Gadavist) 9 mmol UD PRN IV 11/18/17 12:30 11/22/17 12:29 Assessment and Plan Assessment and Plan: Pt is a 32 yo F with malignant HTN who presented to the ED with warmth/flushing , palpitations, headache, fatigue, and exhaustion. She is currently on carvedilol 12.5 mg PO BID and spironolactone 25 mg PO BID. MR angiogram from this morning does not show evidence of renal arterial stenosis. Malignant hypertension - Continue carvedilol 12.5 mg PO BID and spironolactone 25 mg PO BID - W/u continuing for the two adrenal adenomas found. Epinephrine, norepinephrine , and dopamine are within normal limits. - Ensure outpatient medication compliance. Migraine prophylaxis - Nortriptyline 50mg at bedtime - Tizanidine 4mg at bedtime GERD - Pantoprazole 40mg PO q AM Tobacco use - discussed cessation Alcohol use - discussed cessation DVT prophylaxis - SCD Disposition - telemetry Code Status - Full
--- NOTE | 2017-11-18 17:11 | Nephrology Consultation ---
Nephrology Consultation Date & Providers Date of Consultation: Nov 18, 2017. Primary Care Provider: Waleska Liz D.O. Referring Provider: Reason for Consultation Accelerated hypertension History of Present Illness Ms. Kait Wick was seen and evaluated in her hospital room this morning. Blood pressure improved with current management including spironolactone and Coreg. Hyun had no complaints at the time of my evaluation. She was referred for evaluation due to symptoms of flushing, palpitations and headache in the setting of accelerated hypertension. Symptoms improved quickly with improved blood pressure. Hyun is a 32 year-old female being evaluated for accelerated hypertension. Medical records were reviewed in detail. History and plan of care were discussed with Dr. Ramsay and Dr. Peterson. Medical history is notable for hypertension diagnosed at the age of 26 years. This was initially managed well with Carvedilol. The dose has been increased to Carvedilol 6.25 mg po BID over the past year. On 11/12 while eating in the cafeteria she developed blurred vision, flushing and bilateral arm numbness. She was evaluated in the ED were initial bp was 248/ 149. CXR was negative for infiltrate, head CT was negative for mass or bleed and renal US revealed mild asymmetry without obstruction. Renal artery doppler had limited visibility of renal arteries but no definitive TED reported. Serum creatinine was 1.0 and urine sediment was acellular. TSH was wnl. ECG revealed sinus tachycardia. Echocardiogram revealed hyperdynamic LVEF 70% without LVH, normal RV function, no valvular abnormality and normal aortic root. Blood pressure was controlled w/ Carvedilol 6.25 mg BID and the addition of Cozaar [address] Ramsay saw the patient in consultation and she was discharged home with outpatient follow up arranged. Medications at the time of discharge included carvedilol 6.25 mg BID, losartan 50 mg daily and HCTZ 12.5 mg daily. Past Medical/Surgical History Medical: -- Hypertension -- Obesity -- PCOS -- Depression -- TMJ dysfunction -- GERD -- Migraine headaches -- Tobacco use (/2 ppd) Surgical: Milo teeth extraction, cervix biopsy Allergies Coded Allergies: Cefaclor (Verified Allergy, Severe, ANAPHILAXIS, 11/13/17) Inpatient Medications Current Inpatient Medications Medications (Trade) Dose Ordered Sig/Rawjinder Route Start Time Stop Time Status Last Admin Dose Admin Potassium Chloride/Sodium Chloride 1,000 ml @ 75 mls/hr [id number] IV 11/18/17 02:00 12/18/17 01:59 11/18/17 15:57 75 MLS/HR Acetaminophen (Tylenol Tab) 650 mg Q4H PRN PO 11/17/17 23:15 12/17/17 23:14 11/18/17 06:35 650 MG Zolpidem Tartrate (Ambien Tab) 5 mg HSZ PRN PO 11/17/17 23:15 12/17/17 23:14 Ondansetron HCl (Zofran Inj) 4 mg Q6H PRN IV 11/17/17 23:30 12/17/17 23:29 Carvedilol (Coreg Tab) 12.5 mg BID PO 11/18/17 09:00 12/18/17 08:59 11/18/17 08:05 12.5 MG Tizanidine HCl (Zanaflex Tab) 4 mg HS PO 11/18/17 21:00 12/18/17 20:59 11/18/17 01:22 4 MG Nortriptyline HCl (Pamelor Cap) 50 mg HS PO 11/18/17 21:00 12/18/17 20:59 11/18/17 01:22 50 MG Pantoprazole Sodium (Protonix Tab) 40 mg QAM PO 11/18/17 09:00 12/18/17 08:59 11/18/17 08:05 40 MG Spironolactone (Aldactone Tab) 25 mg BID17 PO 11/18/17 09:00 12/18/17 08:59 11/18/17 16:02 25 MG Nicotine (Nicoderm Cq 21MG Patch) 1 patch QAM TD 11/18/17 09:00 12/18/17 08:59 11/18/17 08:06 1 PATCH Miscellaneous (Remove Nicoderm Patch) 1 ea HS N/A 11/18/17 21:00 12/18/17 20:59 Gadobutrol (Gadavist) 9 mmol UD PRN IV 11/18/17 12:30 11/22/17 12:29 Family History Heart disease Hypertension 2 brothers diagnosed with HTN in their late 20's Social History Smoking Status: Current Every Day Smoker Smokeless Tobacco Use: No Drug Use: none Marital Status: single Occupation: employed Miss Wick resides in [place], [place] 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 Review of Systems A complete review of systems was performed. Pertinent positives are noted above. All other systems are negative. Physical Exam Date Time Temp Pulse Resp B/P (MAP) Pulse Ox O2 Delivery O2 Flow Rate FiO2 11/18/17 15:49 36.7 103 20 127/85 (99) 95 Room Air 11/18/17 13:00 Room Air 11/18/17 12:52 36.6 102 18 122/88 (99) 97 Room Air 11/18/17 08:00 Room Air 11/18/17 07:21 36.9 95 18 113/66 (82) 99 11/18/17 06:30 98 121/75 (90) 11/18/17 05:23 37.0 106 16 98/65 (76) 97 Room Air 11/18/17 04:00 Room Air 11/18/17 00:25 36.5 111 19 130/83 98 Room Air 11/18/17 00:19 111 18 144/101 98 11/17/17 23:12 114 11/17/17 23:01 146/90 11/17/17 23:00 115 23 11/17/17 22:31 146/84 11/17/17 22:30 122 17 11/17/17 22:01 131/110 11/17/17 22:00 112 29 11/17/17 21:54 109 18 133/93 98 Room Air 11/17/17 21:52 133/93 11/17/17 21:30 112 27 11/17/17 20:39 117 18 138/104 98 Room Air 11/17/17 19:47 114 18 154/102 98 Room Air 11/17/17 19:38 115 11/17/17 19:24 Room Air 11/17/17 19:11 36.7 137 20 154/101 98 Room Air General Appearance: no apparent distress, + obese Head: normocephalic, atraumatic Eyes: normal inspection, sclerae normal ENT: normal ENT inspection, pharynx normal Neck: supple, no JVD Respiratory/Chest: lungs clear, normal breath sounds, no respiratory distress Cardiovascular: regular rate, rhythm, no gallop, no murmur Abdomen/GI: non tender, soft Back: no CVA tenderness Extremities/Musculoskelatal: normal inspection, no pedal edema Neurologic/Psych: alert, normal mood/affect Laboratory Results Last 24 Hours Test 11/17/17 19:41 11/17/17 20:35 11/18/17 07:03 White Blood Count 10.27 K/uL 10.53 K/uL Red Blood Count 5.20 M/uL 5.03 M/uL Hemoglobin 17.1 g/dL 16.5 g/dL Hematocrit 49.0 % 47.5 % Mean Corpuscular Volume 94.2 fL 94.4 fL Mean Corpuscular Hemoglobin 32.9 pg 32.8 pg Mean Corpuscular Hemoglobin Concent 34.9 g/dl 34.7 g/dl Platelet Count 355 K/uL 316 K/uL Mean Platelet Volume 9.1 fL 9.1 fL Neutrophils (%) (Auto) 58.7 % 55.0 % Lymphocytes (%) (Auto) 30.0 % 32.3 % Monocytes (%) (Auto) 8.8 % 9.9 % Eosinophils (%) (Auto) 1.7 % 1.9 % Basophils (%) (Auto) 0.5 % 0.5 % Neutrophils # (Auto) 6.04 K/uL 5.80 K/uL Lymphocytes # (Auto) 3.08 K/uL 3.40 K/uL Monocytes # (Auto) 0.90 K/uL 1.04 K/uL Eosinophils # (Auto) 0.17 K/uL 0.20 K/uL Basophils # (Auto) 0.05 K/uL 0.05 K/uL RDW Standard Deviation 43.8 fL 44.7 fL RDW Coefficient of Variation 12.7 % 13.0 % Immature Granulocyte % (Auto) 0.3 % 0.4 % Immature Granulocyte # (Auto) 0.03 K/uL 0.04 K/uL Erythrocyte Sedimentation Rate 22 mm/hr Prothrombin Time 10.0 SECONDS Prothromb Time International Ratio 1.0 Activated Partial Thromboplast Time 28.2 SECONDS Partial Thromboplastin Ratio 1.1 Sodium Level 132 mmol/L 134 mmol/L Potassium Level 3.9 mmol/L 3.9 mmol/L Chloride Level 100 mmol/L 101 mmol/L Carbon Dioxide Level 26 mmol/L 24 mmol/L Anion Gap 6.0 mmol/L 9.0 mmol/L Blood Urea Nitrogen 14 mg/dl 13 mg/dl Creatinine 1.14 mg/dl 1.00 mg/dl Est Creatinine Clear Calc Drug Dose 79.0 ml/min 89.8 ml/min Estimated GFR () 73.2 85.7 Estimated GFR (Non- 63.1 74.0 BUN/Creatinine Ratio 12.6 12.8 Random Glucose 97 mg/dl 99 mg/dl Calcium Level 9.4 mg/dl 9.2 mg/dl Magnesium Level 2.1 mg/dl 2.2 mg/dl Total Bilirubin 0.4 mg/dl Direct Bilirubin < 0.1 mg/dl Aspartate Amino Transf (AST/SGOT) 16 U/L Alanine Aminotransferase (ALT/SGPT) 40 U/L Alkaline Phosphatase 100 U/L Total Creatine Kinase 72 U/L Creatine Kinase MB 0.8 ng/ml Creatine Kinase MB Ratio 1.1 Troponin I < 0.015 ng/ml C-Reactive Protein < 0.29 mg/dl Pro-B-Type Natriuretic Peptide 10 pg/ml Total Protein 8.1 gm/dl Albumin 3.8 gm/dl Lipase 133 U/L Thyroid Stimulating Hormone (TSH) 2.870 uIu/ml Free Thyroxine 1.11 ng/dl Free Triiodothyronine 3.80 pg/ml Urine Color YELLOW Urine Appearance CLEAR Urine pH 5.0 Urine Specific [place] 1.017 Urine Protein NEG Urine Glucose (UA) NEG Urine Ketones NEG Urine Occult Blood TRACE Urine Nitrite NEG Urine Bilirubin NEG Urine Urobilinogen NEG Urine Leukocyte Esterase NEG Urine WBC (Auto) 0 /hpf Urine RBC (Auto) 5-10 /hpf Urine Hyaline Casts (Auto) 0 /lpf Urine Epithelial Cells (Auto) 20-30 /lpf Urine Bacteria (Auto) NEG Impression (1) Malignant hypertension (2) Acquired asymmetrical kidneys (3) Adenoma of left adrenal gland (4) Tobacco dependence due to cigarettes Ms. Kait Wick is a 32-year-old female with PCOS, obesity, and hypertension. Clinical presentation concerning for secondary hypertension. She is clinically euthyroid. TSH was previously found to be within normal limits. She is not cushingoid on exam and random serum cortisol is within normal limits. She does not have hypokalemic metabolic alkalosis to suggest hyperaldosteronism. Serum creatinine is higher than expected at 1.0. Urine sediment is acellular but renal US shows mild asymmetry concerning for TED or FMD. Renal artery doppler was indeterminate. CTA and MRA did not suggest TED but did reveal large left renal adenoma. It is unclear if these are functional adrenal lesions. Recommendations -- Serum free metanephrines are normal -- MRI/MRA was personally reviewed as well as abdominal CT -- Adrenal nodules noted but unclear if these are functional -- 24 hour urine for metanephrines is pending -- Random serum aldosterone and renin levels are pending -- TSH and cortisol checked previously and found to be acceptable -- Defer additional angiography at this time or surgical intervention pending results of pending urine studies and renin/aldosterone -- Continue current antihypertensive medications with appropriate monitoring -- It would be reasonable to resume prior home medications tomorrow morning including carvedilol, losartan and HCTZ
[2017-11-18] MEDS ORDERED: LORAZEPAM 0.5 MG TAB PO PRN (18:15)
[2017-11-18] MEDS ORDERED: ENOXAPARIN 40 MG/0.4 ML SYR SQ ONE (19:45)
--- NOTE | 2017-11-18 19:47 | Hospitalist Progress Note ---
Hospitalist Progress Note Date of Service Nov 18, 2017. Subjective Pt evaluation today including: conversation w/ patient, conversation w/ furniture rental consultant (nephrology) Patient reports resolution of her symptoms that were present on admission. Denies headache, blurry vision, flushing. Her blood pressure is much improved. All Other Systems: Reviewed and Negative Objective Vital Signs Date Time Temp Pulse Resp B/P (MAP) Pulse Ox O2 Delivery O2 Flow Rate FiO2 11/18/17 16:00 Room Air 11/18/17 15:49 36.7 103 20 127/85 (99) 95 Room Air 11/18/17 13:00 Room Air 11/18/17 12:52 36.6 102 18 122/88 (99) 97 Room Air 11/18/17 08:00 Room Air 11/18/17 07:21 36.9 95 18 113/66 (82) 99 11/18/17 06:30 98 121/75 (90) 11/18/17 05:23 37.0 106 16 98/65 (76) 97 Room Air 11/18/17 04:00 Room Air 11/18/17 00:25 36.5 111 19 130/83 98 Room Air 11/18/17 00:19 111 18 144/101 98 11/17/17 23:12 114 11/17/17 23:01 146/90 11/17/17 23:00 115 23 11/17/17 22:31 146/84 11/17/17 22:30 122 17 11/17/17 22:01 131/110 11/17/17 22:00 112 29 11/17/17 21:54 109 18 133/93 98 Room Air 11/17/17 21:52 133/93 11/17/17 21:30 112 27 11/17/17 20:39 117 18 138/104 98 Room Air 11/17/17 19:47 114 18 154/102 98 Room Air 11/17/17 19:38 115 Physical Exam General Appearance: WD/WN, no apparent distress Eyes: normal inspection, sclerae normal ENT: hearing grossly normal Neck: trachea midline Respiratory/Chest: lungs clear, normal breath sounds, no respiratory distress, no accessory muscle use Cardiovascular: regular rate, rhythm, no edema, no gallop, no murmur Abdomen: normal bowel sounds, non tender, soft, no organomegaly, no pulsatile mass (and no bruit) Extremities: non-tender, normal inspection, no pedal edema, no calf tenderness Neurologic/Psychiatric: alert, normal mood/affect, oriented x 3 Skin: normal color, warm/dry, no rash Laboratory Results Last 24 Hours Test 11/17/17 19:41 11/17/17 20:35 11/18/17 07:03 White Blood Count 10.27 K/uL 10.53 K/uL Red Blood Count 5.20 M/uL 5.03 M/uL Hemoglobin 17.1 g/dL 16.5 g/dL Hematocrit 49.0 % 47.5 % Mean Corpuscular Volume 94.2 fL 94.4 fL Mean Corpuscular Hemoglobin 32.9 pg 32.8 pg Mean Corpuscular Hemoglobin Concent 34.9 g/dl 34.7 g/dl Platelet Count 355 K/uL 316 K/uL Mean Platelet Volume 9.1 fL 9.1 fL Neutrophils (%) (Auto) 58.7 % 55.0 % Lymphocytes (%) (Auto) 30.0 % 32.3 % Monocytes (%) (Auto) 8.8 % 9.9 % Eosinophils (%) (Auto) 1.7 % 1.9 % Basophils (%) (Auto) 0.5 % 0.5 % Neutrophils # (Auto) 6.04 K/uL 5.80 K/uL Lymphocytes # (Auto) 3.08 K/uL 3.40 K/uL Monocytes # (Auto) 0.90 K/uL 1.04 K/uL Eosinophils # (Auto) 0.17 K/uL 0.20 K/uL Basophils # (Auto) 0.05 K/uL 0.05 K/uL RDW Standard Deviation 43.8 fL 44.7 fL RDW Coefficient of Variation 12.7 % 13.0 % Immature Granulocyte % (Auto) 0.3 % 0.4 % Immature Granulocyte # (Auto) 0.03 K/uL 0.04 K/uL Erythrocyte Sedimentation Rate 22 mm/hr Prothrombin Time 10.0 SECONDS Prothromb Time International Ratio 1.0 Activated Partial Thromboplast Time 28.2 SECONDS Partial Thromboplastin Ratio 1.1 Sodium Level 132 mmol/L 134 mmol/L Potassium Level 3.9 mmol/L 3.9 mmol/L Chloride Level 100 mmol/L 101 mmol/L Carbon Dioxide Level 26 mmol/L 24 mmol/L Anion Gap 6.0 mmol/L 9.0 mmol/L Blood Urea Nitrogen 14 mg/dl 13 mg/dl Creatinine 1.14 mg/dl 1.00 mg/dl Est Creatinine Clear Calc Drug Dose 79.0 ml/min 89.8 ml/min Estimated GFR () 73.2 85.7 Estimated GFR (Non- 63.1 74.0 BUN/Creatinine Ratio 12.6 12.8 Random Glucose 97 mg/dl 99 mg/dl Calcium Level 9.4 mg/dl 9.2 mg/dl Magnesium Level 2.1 mg/dl 2.2 mg/dl Total Bilirubin 0.4 mg/dl Direct Bilirubin < 0.1 mg/dl Aspartate Amino Transf (AST/SGOT) 16 U/L Alanine Aminotransferase (ALT/SGPT) 40 U/L Alkaline Phosphatase 100 U/L Total Creatine Kinase 72 U/L Creatine Kinase MB 0.8 ng/ml Creatine Kinase MB Ratio 1.1 Troponin I < 0.015 ng/ml C-Reactive Protein < 0.29 mg/dl Pro-B-Type Natriuretic Peptide 10 pg/ml Total Protein 8.1 gm/dl Albumin 3.8 gm/dl Lipase 133 U/L Thyroid Stimulating Hormone (TSH) 2.870 uIu/ml Free Thyroxine 1.11 ng/dl Free Triiodothyronine 3.80 pg/ml Urine Color YELLOW Urine Appearance CLEAR Urine pH 5.0 Urine Specific [place] 1.017 Urine Protein NEG Urine Glucose (UA) NEG Urine Ketones NEG Urine Occult Blood TRACE Urine Nitrite NEG Urine Bilirubin NEG Urine Urobilinogen NEG Urine Leukocyte Esterase NEG Urine WBC (Auto) 0 /hpf Urine RBC (Auto) 5-10 /hpf Urine Hyaline Casts (Auto) 0 /lpf Urine Epithelial Cells (Auto) 20-30 /lpf Urine Bacteria (Auto) NEG Assessment and Plan This patient is a 32-year-old female with a history of hypertension since age 26 , obesity, PCOS, who presents with complaints of flushing, palpitations, and found to have significantly elevated blood pressure after a recent discharge 3 days prior for malignant hypertension. 1) Malignant hypertension/adrenal adenomas--BP this admission was not as high as last time-was 154/101 on admission and had sinus tachycardia. She was started on an increased dose of Coreg at 12.5 mg by mouth twice a day, and placed on spironolactone 25 mg by mouth twice a day which is new for her. She did receive 1 dose of spironolactone the previous admission, however was discharged to home on losartan/HCTZ and Coreg 6.25 mg by mouth twice a day. Blood pressures much improved today MRI of brain on October [address] of brain on November 13 was negative. Renal ultrasound on November 13 was negative but did show asymmetric kidneys. CTA of the abdomen on admission shows 2 adrenal nodules on the left, 1.9 and 1.8 cm respectively that are noted to be likely functional adenomas on the report. There is no evidence of renal artery stenosis MRI of the abdomen combo and MRA attention kidneys and adrenal glands again shows the lipemic-rich left adrenal nodules that are fairly large, and again no renal artery stenosis. 24 hours studies for pheochromocytoma and carcinoid syndrome are pending from last admission, with the exception of the plasma catecholamines and metanephrines which are both returned as negative. TSH and cortisol checked previously and were normal. Renin and aldosterone levels are pending from last admission. Urine metanephrines and 5-HIAA are still pending. There is a very strong family history of hypertension at young ages including a brother at age 25 in both her parents as well. Patient also continues to smoke cigarettes daily and drinks 2 alcoholic beverages daily. She does not exercise and she is obese. It is unclear at this time for left adrenal nodules are functional adenomas -Appreciate nephrology consultation and recommendations -Continue telemetry monitoring-continues with some sinus tachycardia which should hopefully improve with increased dose of Coreg -Continue increased dose of Coreg at 12.5 mg by mouth twice a day, continues spironolactone 25 mg by mouth twice a day -Nephrology recommends restarting her losartan/HCTZ in the morning -Keep in hospital until urine metanephrines and 5-HIAA results have returned-if confirmed pheochromocytoma or carcinoid, would need urology consult for surgical evaluation of the adrenal adenomas -Counseled on smoking cessation and abstinence from alcohol at this time, as well as beginning moderate aerobic activity after her blood pressure is under better control -Follow up on serum aldosterone and renin levels -Consider removal of her contraceptive device which could also be contributing to her hypertension-she will discuss with her FRAUD PREVENTION ANALYST as an outpatient 2) Tobacco use disorder-- Counseled on cessation -Nicotine patch daily 3) Migraine headache prophylaxis-- Continue nortriptyline 50 mg and tizanidine 4 mg at bedtime. 4) GERD stable -Continue PPI 5) contraception -Etonogestrel implant in place-consider removal as above 6) abnormal urinalysis-this is a contaminated sample and she is asymptomatic, currently menstruating -Urine culture was sent but would not be reliable and she does not need antibiotics 7) hyponatremia-very mild with sodium of 132, likely secondary to recent addition of HCTZ -Holding HCTZ for now, was hydrated with IV fluids -DC IV fluids now Prophylaxis-add Lovenox Disposition-to home after test results back and blood pressure continues to have better control
[2017-11-18] MEDS ORDERED: NURSING VERBAL MED ORDER ONE (20:15)
[2017-11-18] MEDS ORDERED: hydrOXYzine HCL 25 MG TAB PO SCH (21:00)
[2017-11-19 04:30] VITALS: BP 114/82; PULSE 88; TEMP 37; O2SAT 95
[2017-11-19 06:49] LABS: BASO % 0.4 %; BASO ABS # 0.03 K/uL (0-0.2); COMPLETE YES; EOS % 2.6 %; HEMATOCRIT 43.9 % (37-47); IG% 0.3 %; LYMPH % 34.6 %; LYMPH ABS # 2.68 K/uL (1.2-3.4); MEAN CELL VOLUME 95.2 fL (80-100); MEAN CORPUSCULAR HEMOGLOBIN 32.8 pg (25-34); MEAN CORPUSCULAR HGB CONC 34.4 g/dl (32-36); MEAN PLATELET VOLUME 9.1 fL (7.4-10.4); MONO % 11.5 %; NEUT % 50.6 %; PLATELET COUNT 301 K/uL (130-400); RED BLOOD COUNT 4.61 M/uL (4.2-5.4); WHITE BLOOD COUNT 7.74 K/uL (4.8-10.8)
[2017-11-19 07:22] LABS: BUN/CREATININE RATIO 13.9 (10-20); CREATININE 1.14 mg/dl (0.60-1.20); MAGNESIUM 2.3 mg/dl (1.8-2.4); POTASSIUM 3.8 mmol/L (3.5-5.1)
[2017-11-19 08:18] VITALS: BP 127/83; PULSE 95; TEMP 36.9; O2SAT 96
[2017-11-19] MEDS: CARVEDILOL 12.5 MG TAB PO SCH (08:20)
[2017-11-19] MEDS: SPIRONOLACTONE 25 MG TAB PO SCH (08:20)
[2017-11-19] MEDS: PANTOprazole SOD 40 MG TAB PO SCH (08:20)
[2017-11-19] MEDS: NICOTINE 21 MG/24 HR TDSY TD SCH (08:21)
[2017-11-19] MEDS ORDERED: ENOXAPARIN 40 MG/0.4 ML SYR SQ SCH (09:00)
--- NOTE | 2017-11-19 09:28 | Nephrology Progress Note ---
Nephrology Progress Note Date of Service Nov 19, 2017. Chief Complaint Accelerated hypertension Subjective No acute events overnight. Kait feels well this morning. She has not had flushing, palpitations, headaches or chest pain. Blood pressure has been well controlled with spironolactone and carvedilol. She is tolerating the medications well. Kait states that she wants to go home. She feels well and is frustrated that she does not have a clear diagnosis. Additional history provided includes a history of menometrorrhagia. Review of Systems A complete review of systems was performed. Pertinent positives are noted above. All other systems are negative. Vital Signs Last 8 Hrs Date Time Temp Pulse Resp B/P (MAP) Pulse Ox O2 Delivery O2 Flow Rate FiO2 11/19/17 08:18 36.9 95 16 127/83 (98) 96 Room Air 11/19/17 04:30 37.0 88 17 114/82 (93) 95 Room Air 11/19/17 04:00 Room Air Last Recorded Weight Weight (Kilograms): 92.200 Physical Exam General Appearance: no apparent distress, + obese Head: normocephalic, atraumatic Eyes: normal inspection, sclerae normal ENT: normal ENT inspection, pharynx normal Neck: supple, no JVD Respiratory/Chest: lungs clear, no respiratory distress, no accessory muscle use Cardiovascular: regular rate, rhythm, no gallop Abdomen/GI: non tender, soft Extremities/Musculoskelatal: normal inspection, no pedal edema Neurologic/Psych: alert, normal mood/affect Family History Heart disease Hypertension 2 brothers diagnosed with HTN in their late 20's Social History Smoking Status: Current every day smoker Smokeless Tobacco Use: No Drug Use: none Marital Status: single Occupation: employed Miss Wick resides in [place], [place] her PCP is Dr. Waleska Hollis with [facility]. 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 Laboratory Results Past 24 Hours 11/19/17 06:29 Red Blood Count 4.61, Mean Corpuscular Volume 95.2, Mean Corpuscular Hemoglobin 32.8, Mean Corpuscular Hemoglobin Concent 34.4, Mean Platelet Volume 9.1, Neutrophils (%) (Auto) 50.6, Lymphocytes (%) (Auto) 34.6, Monocytes (%) (Auto) 11.5, Eosinophils (%) (Auto) 2.6, Basophils (%) (Auto) 0.4, Neutrophils # (Auto ) 3.92, Lymphocytes # (Auto) 2.68, Monocytes # (Auto) 0.89, Eosinophils # (Auto ) 0.20, Basophils # (Auto) 0.03 11/19/17 06:29 Test 11/19/17 06:29 White Blood Count 7.74 K/uL (4.8-10.8) Red Blood Count 4.61 M/uL (4.2-5.4) Hemoglobin 15.1 g/dL (12.0-16.0) Hematocrit 43.9 % (37-47) Mean Corpuscular Volume 95.2 fL (80-100) Mean Corpuscular Hemoglobin 32.8 pg (25-34) Mean Corpuscular Hemoglobin Concent 34.4 g/dl (32-36) Platelet Count 301 K/uL (130-400) Mean Platelet Volume 9.1 fL (7.4-10.4) Neutrophils (%) (Auto) 50.6 % Lymphocytes (%) (Auto) 34.6 % Monocytes (%) (Auto) 11.5 % Eosinophils (%) (Auto) 2.6 % Basophils (%) (Auto) 0.4 % Neutrophils # (Auto) 3.92 K/uL (1.4-6.5) Lymphocytes # (Auto) 2.68 K/uL (1.2-3.4) Monocytes # (Auto) 0.89 K/uL (0.11-0.59) Eosinophils # (Auto) 0.20 K/uL (0-0.5) Basophils # (Auto) 0.03 K/uL (0-0.2) RDW Standard Deviation 44.0 fL (36.4-46.3) RDW Coefficient of Variation 12.7 % (11.5-14.5) Immature Granulocyte % (Auto) 0.3 % Immature Granulocyte # (Auto) 0.02 K/uL (0.00-0.02) Anion Gap 7.0 mmol/L (3-11) Est Creatinine Clear Calc Drug Dose 78.8 ml/min Estimated GFR () 73.2 Estimated GFR (Non- 63.1 BUN/Creatinine Ratio 13.9 (10-20) Calcium Level 9.0 mg/dl (8.5-10.1) Magnesium Level 2.3 mg/dl (1.8-2.4) Allergies Coded Allergies: Cefaclor (Verified Allergy, Severe, ANAPHILAXIS, 11/13/17) Medications Current Inpatient Medications Medications (Trade) Dose Ordered Sig/Rajwinder Route Start Time Stop Time Status Last Admin Dose Admin Acetaminophen (Tylenol Tab) 650 mg Q4H PRN PO 11/17/17 23:15 12/17/17 23:14 11/18/17 06:35 650 MG Zolpidem Tartrate (Ambien Tab) 5 mg HSZ PRN PO 11/17/17 23:15 12/17/17 23:14 Ondansetron HCl (Zofran Inj) 4 mg Q6H PRN IV 11/17/17 23:30 12/17/17 23:29 Carvedilol (Coreg Tab) 12.5 mg BID PO 11/18/17 09:00 12/18/17 08:59 11/19/17 08:20 12.5 MG Tizanidine HCl (Zanaflex Tab) 4 mg HS PO 11/18/17 21:00 12/18/17 20:59 11/18/17 23:25 4 MG Nortriptyline HCl (Pamelor Cap) 50 mg HS PO 11/18/17 21:00 12/18/17 20:59 11/18/17 23:24 50 MG Pantoprazole Sodium (Protonix Tab) 40 mg QAM PO 11/18/17 09:00 12/18/17 08:59 11/19/17 08:20 40 MG Spironolactone (Aldactone Tab) 25 mg BID17 PO 11/18/17 09:00 12/18/17 08:59 11/19/17 08:20 25 MG Nicotine (Nicoderm Cq 21MG Patch) 1 patch QAM TD 11/18/17 09:00 12/18/17 08:59 11/19/17 08:21 1 PATCH Miscellaneous (Remove Nicoderm Patch) 1 ea HS N/A 11/18/17 21:00 12/18/17 20:59 11/19/17 08:19 1 EA Gadobutrol (Gadavist) 9 mmol UD PRN IV 11/18/17 12:30 11/22/17 12:29 Lorazepam (Ativan Tab) 0.5 mg HS PRN PO 11/18/17 18:15 12/18/17 18:14 Enoxaparin Sodium (Lovenox Inj) 40 mg DAILY SQ 11/19/17 09:00 12/19/17 08:59 Impression (1) Malignant hypertension (2) Acquired asymmetrical kidneys (3) Adenoma of left adrenal gland (4) Tobacco dependence due to cigarettes Ms. Kait Wick is a 32-year-old female with PCOS, obesity, and hypertension. She has stage II hypertension and a presentation concerning for secondary hypertension. Kait is clinically euthyroid. TSH was previously found to be within normal limits. She is not cushingoid on exam and random serum cortisol is within normal limits. She does not have hypokalemic metabolic alkalosis to suggest hyperaldosteronism. Serum creatinine is normal. Urine sediment is acellular. There is subtle renal asymmetry on US but overall normal appearance of the kidneys on CT and MRI. Renal artery doppler was indeterminate. CTA and MRA did not suggest TED but did reveal 2 (>1.5 cm) left renal adenoma. It is unclear if these are functional adrenal lesions. Recommendations -- 24 hour urine for metanephrines pending -- Random serum aldosterone and renin levels pending -- No additional evaluation at this time -- Reasonable to continue current therapy with carvedilol and spironolactone. Kait is tolerating current therapy -- Without a history of hypokalemia, I would also consider restarting losartan HCTZ in place of spironolactone but Kait felt more comfortable continuing current therapy -- Defer additional angiography at this time or surgical intervention pending results of pending urine studies and renin/aldosterone
--- NOTE | 2017-11-19 11:12 | Medical Student: [facility] ---
Med Student Progress Note Date of Service Nov 19, 2017. Subjective Pt evaluation today including: conversation w/ patient, physical exam pt is a 32 yo F who presented with malignant HTN symptoms of palpitations, headache, and generalized warmth and flushing. She is doing well today but has a headache due to a lack of sleep the past several days. She reports no return of her symptoms that she presented with when she came to the hospital. Her blood pressure has been under good control with carvedilol 12.5 mg PO BID and spironolactone 25 mg PO BID. W/u continuing for the two left adrenal adenomas found on imaging. MR angiogram shows no evidence of renal arterial stenosis. Review of Systems Constitutional: No fever, No chills Eyes: No worsening of vision, No eye pain ENT: No hearing loss Respiratory: No cough, No sputum, No wheezing, No shortness of breath Cardiac: No chest pain Abdomen: No pain, No nausea Musculoskeletal: No joint pain Female : No dysuria Neurologic: No memory loss Psychiatric: No depression symptoms Heme: No abnormal bleeding/bruising Endo: + fatigue Skin: No rash, No itch Objective Vital Signs Date Time Temp Pulse Resp B/P (MAP) Pulse Ox O2 Delivery O2 Flow Rate FiO2 11/19/17 08:18 36.9 95 16 127/83 (98) 96 Room Air 11/19/17 04:30 37.0 88 17 114/82 (93) 95 Room Air 11/19/17 04:00 Room Air 11/19/17 00:00 Room Air 11/18/17 23:54 37.0 98 17 121/67 (85) 97 Room Air 11/18/17 20:24 36.9 101 18 130/85 (100) 96 Room Air 11/18/17 20:00 Room Air 11/18/17 16:00 Room Air 11/18/17 15:49 36.7 103 20 127/85 (99) 95 Room Air 11/18/17 13:00 Room Air 11/18/17 12:52 36.6 102 18 122/88 (99) 97 Room Air Physical Exam General Appearance: WD/WN, no apparent distress Eyes: bilateral eyes normal inspection, bilateral eyes PERRL, bilateral eyes EOMI ENT: normal ENT inspection, hearing grossly normal Neck: supple, no adenopathy, thyroid normal Respiratory/Chest: chest non-tender, lungs clear, normal breath sounds Cardiovascular: regular rate, rhythm, no edema, no gallop, no JVD, no murmur Abdomen: normal bowel sounds, non tender Extremities: normal range of motion, non-tender, normal inspection, no pedal edema Neurologic/Psychiatric: no motor/sensory deficits, alert, normal mood/affect, oriented x 3 Skin: normal color, warm/dry Laboratory Results Last 24 Hours Test 11/19/17 06:29 White Blood Count 7.74 K/uL Red Blood Count 4.61 M/uL Hemoglobin 15.1 g/dL Hematocrit 43.9 % Mean Corpuscular Volume 95.2 fL Mean Corpuscular Hemoglobin 32.8 pg Mean Corpuscular Hemoglobin Concent 34.4 g/dl Platelet Count 301 K/uL Mean Platelet Volume 9.1 fL Neutrophils (%) (Auto) 50.6 % Lymphocytes (%) (Auto) 34.6 % Monocytes (%) (Auto) 11.5 % Eosinophils (%) (Auto) 2.6 % Basophils (%) (Auto) 0.4 % Neutrophils # (Auto) 3.92 K/uL Lymphocytes # (Auto) 2.68 K/uL Monocytes # (Auto) 0.89 K/uL Eosinophils # (Auto) 0.20 K/uL Basophils # (Auto) 0.03 K/uL RDW Standard Deviation 44.0 fL RDW Coefficient of Variation 12.7 % Immature Granulocyte % (Auto) 0.3 % Immature Granulocyte # (Auto) 0.02 K/uL Sodium Level 136 mmol/L Potassium Level 3.8 mmol/L Chloride Level 103 mmol/L Carbon Dioxide Level 27 mmol/L Anion Gap 7.0 mmol/L Blood Urea Nitrogen 16 mg/dl Creatinine 1.14 mg/dl Est Creatinine Clear Calc Drug Dose 78.8 ml/min Estimated GFR () 73.2 Estimated GFR (Non- 63.1 BUN/Creatinine Ratio 13.9 Random Glucose 96 mg/dl Calcium Level 9.0 mg/dl Magnesium Level 2.3 mg/dl Medications Current Inpatient Medications Medications (Trade) Dose Ordered Sig/Rajwinder Route Start Time Stop Time Status Last Admin Dose Admin Acetaminophen (Tylenol Tab) 650 mg Q4H PRN PO 11/17/17 23:15 12/17/17 23:14 11/18/17 06:35 650 MG Zolpidem Tartrate (Ambien Tab) 5 mg HSZ PRN PO 11/17/17 23:15 12/17/17 23:14 Ondansetron HCl (Zofran Inj) 4 mg Q6H PRN IV 11/17/17 23:30 12/17/17 23:29 Carvedilol (Coreg Tab) 12.5 mg BID PO 11/18/17 09:00 12/18/17 08:59 11/19/17 08:20 12.5 MG Tizanidine HCl (Zanaflex Tab) 4 mg HS PO 11/18/17 21:00 12/18/17 20:59 11/18/17 23:25 4 MG Nortriptyline HCl (Pamelor Cap) 50 mg HS PO 11/18/17 21:00 12/18/17 20:59 11/18/17 23:24 50 MG Pantoprazole Sodium (Protonix Tab) 40 mg QAM PO 11/18/17 09:00 12/18/17 08:59 11/19/17 08:20 40 MG Spironolactone (Aldactone Tab) 25 mg BID17 PO 11/18/17 09:00 12/18/17 08:59 11/19/17 08:20 25 MG Nicotine (Nicoderm Cq 21MG Patch) 1 patch QAM TD 11/18/17 09:00 12/18/17 08:59 11/19/17 08:21 1 PATCH Miscellaneous (Remove Nicoderm Patch) 1 ea HS N/A 11/18/17 21:00 12/18/17 20:59 11/19/17 08:19 1 EA Gadobutrol (Gadavist) 9 mmol UD PRN IV 11/18/17 12:30 11/22/17 12:29 Lorazepam (Ativan Tab) 0.5 mg HS PRN PO 11/18/17 18:15 12/18/17 18:14 Enoxaparin Sodium (Lovenox Inj) 40 mg DAILY SQ 11/19/17 09:00 12/19/17 08:59 Assessment and Plan Assessment and Plan: Pt is a 32 yo F who presented with malignant HTN with symptoms of generalized warmth/flushing, headache, and palpitations. Malignant hypertension - Continue carvedilol 12.5 mg PO BID and spironolactone 25 mg PO BID - W/u continuing for the two adrenal adenomas found. Epinephrine, norepinephrine , and dopamine are within normal limits. - Pendin hr urine metanephrines, random serum aldosterone and renin levels - Ensure outpatient medication compliance. - Nephrology consulted - no additional evaluations at this time - Pt feels more comfortable with current regimen of spironolactone and carvedilol instead of losatan/HTCS Migraine prophylaxis - Nortriptyline 50mg at bedtime - Tizanidine 4mg at bedtime GERD - Pantoprazole 40mg PO q AM Tobacco use - discussed cessation Alcohol use - discussed cessation DVT prophylaxis - SCD Code Status - Full
[2017-11-19] MEDS ORDERED: SPR25 PO (11:55)
[2017-11-19] MEDS ORDERED: CRG125 PO (11:55)
[2017-11-19 11:57] VITALS: BP 129/86; PULSE 86; TEMP 36.6; O2SAT 96
--- NOTE | 2017-11-19 11:59 | Discharge Instructions ---
Discharge Instructions Date of Service Nov 19, 2017. Admission Reason for Admission: Malignant Hypertension Discharge Discharge Diagnosis / Problem: Malignant hypertension Discharge Goals Goal(s): Decrease discomfort, Improve function, Increase independence, Improve disease control, Learn about illness, Diagnostic testing, Prevent Disease Progression Activity Recommendations Activity Limitations: resume your previous activity Exercise/Sports Limitations: as tolerated . Instructions / Follow-Up Instructions / Follow-Up Patient to be discharged home Please note to stop taking HCTZ and losartan at this time Patient to continue taking spironolactone 25 mg and coreg 12.5 mg tablet twice a day Follow up with Dr Alfaro in 1-2 weeks Follow up with Dr Boucher in 1-2 weeks Current Hospital Diet Patient's current hospital diet: AHA Diet (Heart Healthy) Discharge Diet Recommended Diet: AHA Diet (Heart Healthy) Pending Studies Studies pending at discharge: yes List of pending studies: urine metanephrines Medical Emergencies . Who to Call and When: Medical Emergencies: If at any time you feel your situation is an emergency, please call 911 immediately. . Non-Emergent Contact Non-Emergency issues call your: Primary Care Provider Call Non-Emergent contact if: you have any medication questions . . "Provider Documentation" section prepared by Wilder Lang. . VTE Core Measure Inpt VTE Proph given/why not?: SCD's
[2017-11-19 12:08] VITALS: BP 129/86; PULSE 86; TEMP 36.6; O2SAT 96
--- NOTE | 2017-11-19 13:19 | Progress Note ---
Subjective Date of Service: Nov 19, 2017. Subjective Pt evaluation today including: conversation w/ patient, physical exam, chart review, lab review, review of studies, review of inpatient medication list Pt feeling tired No chest pain or shortness of breath States "just wanting to sleep" No distress at this time Problem List Medical Problems: (1) Adenoma of left adrenal gland Status: Acute (2) Left knee injury Status: Acute (3) Tachycardia Status: Acute Review of Systems Constitutional: No fever, No chills, No sweats, No weakness Eyes: No worsening of vision, No eye pain, No redness, No discharge Respiratory: No cough, No sputum, No wheezing, No shortness of breath, No dyspnea on exertion Cardiac: No chest pain, No orthopnea, No PND, No edema, No claudication Abdomen: No pain, No nausea, No vomiting, No diarrhea, No constipation Musculoskeletal: No joint pain, No muscle pain, No swelling, No calf pain Female : No dysuria, No urinary frequency, No hematuria, No incontinence Neurologic: No memory loss, No paralysis, No weakness, No numbness/tingling Psychiatric: No depression symptoms, No anhedonism, No anxiety, No insomnia Heme: No abnormal bleeding/bruising, No clotting problems Skin: No rash, No itch Objective Vital Signs Date Time Temp Pulse Resp B/P (MAP) Pulse Ox O2 Delivery O2 Flow Rate FiO2 11/19/17 12:08 36.6 86 18 96 Room Air 11/19/17 11:57 36.6 86 18 129/86 (100) 96 Room Air 11/19/17 08:18 36.9 95 16 127/83 (98) 96 Room Air 11/19/17 08:00 Room Air 11/19/17 04:30 37.0 88 17 114/82 (93) 95 Room Air 11/19/17 04:00 Room Air 11/19/17 00:00 Room Air 11/18/17 23:54 37.0 98 17 121/67 (85) 97 Room Air 11/18/17 20:24 36.9 101 18 130/85 (100) 96 Room Air 11/18/17 20:00 Room Air 11/18/17 16:00 Room Air 11/18/17 15:49 36.7 103 20 127/85 (99) 95 Room Air Physical Exam General Appearance: WD/WN, no apparent distress Eyes: normal inspection, PERRL, EOMI, sclerae normal Neck: supple, no adenopathy, thyroid normal, no JVD Respiratory/Chest: chest non-tender, lungs clear, normal breath sounds, no respiratory distress Cardiovascular: regular rate, rhythm, no edema, no gallop, no JVD Abdomen: normal bowel sounds, non tender, soft, no organomegaly Extremities: normal range of motion, non-tender, normal inspection, no pedal edema Neurologic/Psychiatric: no motor/sensory deficits, alert, normal mood/affect, oriented x 3 Laboratory Results Last 24 Hours Test 11/19/17 06:29 White Blood Count 7.74 K/uL Red Blood Count 4.61 M/uL Hemoglobin 15.1 g/dL Hematocrit 43.9 % Mean Corpuscular Volume 95.2 fL Mean Corpuscular Hemoglobin 32.8 pg Mean Corpuscular Hemoglobin Concent 34.4 g/dl Platelet Count 301 K/uL Mean Platelet Volume 9.1 fL Neutrophils (%) (Auto) 50.6 % Lymphocytes (%) (Auto) 34.6 % Monocytes (%) (Auto) 11.5 % Eosinophils (%) (Auto) 2.6 % Basophils (%) (Auto) 0.4 % Neutrophils # (Auto) 3.92 K/uL Lymphocytes # (Auto) 2.68 K/uL Monocytes # (Auto) 0.89 K/uL Eosinophils # (Auto) 0.20 K/uL Basophils # (Auto) 0.03 K/uL RDW Standard Deviation 44.0 fL RDW Coefficient of Variation 12.7 % Immature Granulocyte % (Auto) 0.3 % Immature Granulocyte # (Auto) 0.02 K/uL Sodium Level 136 mmol/L Potassium Level 3.8 mmol/L Chloride Level 103 mmol/L Carbon Dioxide Level 27 mmol/L Anion Gap 7.0 mmol/L Blood Urea Nitrogen 16 mg/dl Creatinine 1.14 mg/dl Est Creatinine Clear Calc Drug Dose 78.8 ml/min Estimated GFR () 73.2 Estimated GFR (Non- 63.1 BUN/Creatinine Ratio 13.9 Random Glucose 96 mg/dl Calcium Level 9.0 mg/dl Magnesium Level 2.3 mg/dl Assessment and Plan This patient is a 32-year-old female with a history of hypertension since age 26 , obesity, PCOS, who presents with complaints of flushing, palpitations, and found to have significantly elevated blood pressure after a recent discharge 3 days prior for malignant hypertension. Malignant hypertension/adrenal adenomas--BP this admission was not as high as last time-was 154/101 on admission and had sinus tachycardia. She was started on an increased dose of Coreg at 12.5 mg by mouth twice a day, and placed on spironolactone 25 mg by mouth twice a day which is new for her. She did receive 1 dose of spironolactone the previous admission, however was discharged to home on losartan/HCTZ and Coreg 6.25 mg by mouth twice a day. Blood pressures much improved during hospital stay MRI of brain on October [address] of brain on November 13 was negative. Renal ultrasound on November 13 was negative but did show asymmetric kidneys. CTA of the abdomen on admission shows 2 adrenal nodules on the left, 1.9 and 1.8 cm respectively that are noted to be likely functional adenomas on the report. There is no evidence of renal artery stenosis MRI of the abdomen combo and MRA attention kidneys and adrenal glands again shows the lipemic-rich left adrenal nodules that are fairly large, and again no renal artery stenosis. 24 hours studies for pheochromocytoma and carcinoid syndrome are pending from last admission, with the exception of the plasma catecholamines and metanephrines which are both returned as negative. TSH and cortisol checked previously and were normal. Renin and aldosterone levels are pending from last admission. Urine metanephrines and 5-HIAA are still pending. There is a very strong family history of hypertension at young ages including a brother at age 25 in both her parents as well. Patient also continues to smoke cigarettes daily and drinks 2 alcoholic beverages daily. She does not exercise and she is obese. It is unclear at this time for left adrenal nodules are functional adenomas -Appreciate nephrology consultation and recommendations -Continue telemetry monitoring-continues with some sinus tachycardia which should hopefully improve with increased dose of Coreg -Continue increased dose of Coreg at 12.5 mg by mouth twice a day, continues spironolactone 25 mg by mouth twice a day on discharge, follow up with nephrology on DC -Counseled on smoking cessation and abstinence from alcohol at this time, as well as beginning moderate aerobic activity after her blood pressure is under better control -Follow up on serum aldosterone and renin levels -Consider removal of her contraceptive device which could also be contributing to her hypertension-she will discuss with her CHIEF STRATEGY OFFICER as an outpatient Tobacco use disorder-- Counseled on cessation -Nicotine patch daily Migraine headache prophylaxis-- Continue nortriptyline 50 mg and tizanidine 4 mg at bedtime. GERD stable -Continue PPI Contraception -Etonogestrel implant in place-consider removal as above Abnormal urinalysis-this is a contaminated sample and she is asymptomatic, currently menstruating -Urine culture was sent but would not be reliable and she does not need antibiotics Hyponatremia-very mild with sodium of 132, likely secondary to recent addition of HCTZ -Holding HCTZ for now, was hydrated with IV fluids -DC IV fluids now, RESOLVED, will hold off on HCTZ on discharge Prophylaxis-add Lovenox
== END 2017-11-19 12:21 | disposition home or self-care (01) | DRG 305 ==
LOC: C.EDB 19:10 → C.2T 23:37 → ENRESERV 23:41
PROVIDERS: ADMIT Hospitalist; ATTEND Hospitalist
DX: I10 Essential (primary) hypertension (principal); E87.1 Hypo-osmolality and hyponatremia; F17.210 Nicotine dependence, cigarettes, uncomplicated; K21.9 Gastro-esophageal reflux disease without esophagitis; F32.9 Major depressive disorder, single episode, unspecified; E66.9 Obesity, unspecified; E28.2 Polycystic ovarian syndrome; D35.00 Benign neoplasm of unspecified adrenal gland; R00.0 Tachycardia, unspecified; Z79.3 Long term (current) use of hormonal contraceptives; Z79.899 Other long term (current) drug therapy; Z72.89 Other problems related to lifestyle; Z82.49 Family history of ischemic heart disease and other diseases of the circulatory system; Z68.33 Body mass index [BMI] 33.0-33.9, adult

== ENCOUNTER → 2017-12-10 | Outpatient (CLI) | payer OTHER ==
[~2017-12-10] MED LIST changes: +CRG125 PO; +ETON1IMP2 INTRAD; -IUD'IUD; -LOSA100T33 PO; +NRT/50 PO; +OMEP40CA41 PO; +SPR25 PO
[2017-12-10 18:08] LABS: HEMATOCRIT 43.7 % (37-47); HEMOGLOBIN 15.2 g/dL (12.0-16.0); MEAN CELL VOLUME 93.8 fL (80-100); MEAN CORPUSCULAR HEMOGLOBIN 32.6 pg (25-34); MEAN CORPUSCULAR HGB CONC 34.8 g/dl (32-36); MEAN PLATELET VOLUME 9.3 fL (7.4-10.4); PLATELET COUNT 280 K/uL (130-400); RED CELL DISTRIBUTION WIDTH CV 13.3 % (11.5-14.5); RED CELL DISTRIBUTION WIDTH SD 45.2 fL (36.4-46.3); WHITE BLOOD COUNT 9.43 K/uL (4.8-10.8)
[2017-12-10 18:32] LABS: ALBUMIN 3.9 gm/dl (3.4-5.0); ALT/SGPT 44 U/L (12-78); AST/SGOT 20 U/L (15-37); BLOOD UREA NITROGEN 9 mg/dl (7-18); CALCIUM 9.3 mg/dl (8.5-10.1); CARBON DIOXIDE 24 mmol/L (21-32); CREATININE 0.95 mg/dl (0.60-1.20); GLUCOSE 83 mg/dl (70-99); SODIUM 133 mmol/L (136-145)
[2017-12-10 18:35] LABS: ALKALINE PHOSPHATASE 87 U/L (45-117); TOTAL PROTEIN 7.5 gm/dl (6.4-8.2)
== END | disposition home or self-care (01) ==
LOC: C.LAB 16:13
PROVIDERS: ATTEND Internal Medicine Nephrology
DX: I10 Essential (primary) hypertension (principal)

== ENCOUNTER 2018-02-26 15:13 | Emergency (ER) | payer OTHER ==
[~2018-02-26] VITALS: Ht 165.1 cm; Wt 98.1 kg
[2018-02-26 15:11] VITALS: TEMP 36.7; Ht 165.1 cm; Wt 98.1 kg
[2018-02-26] MEDS ORDERED: CARV12.5 PO (15:34)
[2018-02-26] MEDS ORDERED: CARV25TA2 PO (15:34)
--- NOTE | 2018-02-26 15:48 | EMERGENCY ROOM VISIT NOTE ---
History Report prepared by Dwight: Bakari Eisenberg Under the Supervision of: Dr. Melissa Alonzo D.O. First contact with patient: 15:35 Chief Complaint: HYPERTENSION History of Present Illness The patient is a 32 year old female with a history of hypertension who presents to the Emergency Room with complaints of persistent hypertension that was detected earlier this afternoon. She states that she was driving here to work when she started to lose her vision, which is a sign that her blood pressure is high. The patient says that she was hospitalized here twice in November for hypertension, and she had the same vision problems during those episodes. The patient states that during her vision changes, she sees a bright light when looking straight, and then the brightness spreads. The patient adds that during her episodes, her left side of her face gets warm and numb. She gets a mild discomfort on the left side of her head also. She notes that she has seen an backend tester in the past, and was told that she has a possible start of a detached retina, but she has not followed-up for that since she was here in November and was told it was improved and healing. The patient states that when she got here earlier today, she checked her blood pressure and it was 170/130. She says that the diastolic blood pressure is abnormally high for her. She notes that she takes her blood pressure medications at 1300 every afternoon. The patient states that her vision is still "really bright and flashy", but she gets residual vision changes for a while after her episodes. She notes that there are no patterns or triggers for her episodes. She denies any dizziness, lightheadedness, shortness of breath, or chest pain. The patient says that there were nodules found in her adrenal gland when she was here in November. Pt states her group dynamics instructor manages her BP meds, no recent change and she hasn't missed any doses. No known trigger or pattern to episodes similar to this previously. Denies any trigger for todays event to the best of her knowledge. Source of History: patient Onset: Earlier this afternoon Position: other (global) Symptom Intensity: 170/130 Quality: other (hypertension) Timing: other (persistent) Associated Symptoms: + numbness (and feelings of being hot on left side of face), No headache, No chest pain, No SOB Note: Associated symptoms: Vision changes. Denies dizziness, lightheadedness. Review of Systems See HPI for pertinent positives & negatives. A total of 10 systems reviewed and were otherwise negative. Past Medical & Surgical Medical Problems: (1) Acquired asymmetrical kidneys (2) Chest pain (3) Chronic GERD (4) Cough (5) Depression (6) HTN (hypertension) (7) Malignant hypertension (8) Migraine headache (9) SOB (shortness of breath) (10) Tobacco dependence due to cigarettes Family History Heart disease Hypertension Social History Smoking Status: Current Every Day Smoker Alcohol Use: occasionally Drug Use: none Marital Status: single Occupation Status: employed Current/Historical Medications Scheduled Carvedilol (Coreg), 25 MG PO QAM Carvedilol (Coreg), 12.5 MG PO QPM Etonogestrel (Nexplanon), 68 MG INTRAD UD Nortriptyline HCl (Nortriptyline HCl), 50 MG PO HS Omeprazole (Prilosec), 40 MG PO DAILY Spironolactone (Spironolactone), 25 MG PO BID17 Tizanidine (Tizanidine HCl), 4 MG PO HS Allergies Coded Allergies: Cefaclor (Verified Allergy, Severe, ANAPHILAXIS, 02/26/18) Physical Exam Vital Signs Date Time Temp Pulse Resp B/P (MAP) Pulse Ox O2 Delivery O2 Flow Rate FiO2 02/26/18 16:15 86 18 144/101 96 Room Air 02/26/18 15:11 36.7 97 18 143/118 97 Room Air Physical Exam GENERAL: alert, well appearing, well nourished, no distress, non-toxic EYE EXAM: normal conjunctiva, PERRL and EOM's grossly intact, nml fundoscopic exam, unable to view optic disc, nml appearing vessels and no evidence of papilledema OROPHARYNX: no exudate, no erythema, lips, buccal mucosa, and tongue normal and mucous membranes are moist NECK: supple, no nuchal rigidity, no adenopathy, non-tender, no carotid bruits LUNGS: Clear to auscultation. Normal chest wall mechanics, no w/r/r HEART: no murmurs, S1 normal and S2 normal ABDOMEN: abdomen soft, non-tender, normo-active bowel sounds, no masses, no rebound or guarding. BACK: Back is symmetrical on inspection and there is no deformity, no midline tenderness, no CVA tenderness. SKIN: no rashes and no bruising UPPER EXTREMITIES: upper extremities are grossly normal. LOWER EXTREMITIES: No pitting edema. NEURO EXAM: Normal sensorium, cranial nerves II-XII grossly intact, normal speech, no gross weakness of arms, no gross weakness of legs. No drift. Finger to nose intact. Gross sensation intact Medical Decision & Procedures Laboratory Results 02/26/18 16:16 Red Blood Count 4.83, Mean Corpuscular Volume 91.9, Mean Corpuscular Hemoglobin 32.3, Mean Corpuscular Hemoglobin Concent 35.1, Mean Platelet Volume 8.8, Neutrophils (%) (Auto) 64.9, Lymphocytes (%) (Auto) 26.2, Monocytes (%) (Auto) 6.7, Eosinophils (%) (Auto) 1.6, Basophils (%) (Auto) 0.4, Neutrophils # (Auto) 6.17, Lymphocytes # (Auto) 2.49, Monocytes # (Auto) 0.64, Eosinophils # (Auto) 0.15, Basophils # (Auto) 0.04 02/26/18 16:16 Test 02/26/18 16:16 02/26/18 16:22 White Blood Count 9.51 K/uL (4.8-10.8) Red Blood Count 4.83 M/uL (4.2-5.4) Hemoglobin 15.6 g/dL (12.0-16.0) Hematocrit 44.4 % (37-47) Mean Corpuscular Volume 91.9 fL (80-100) Mean Corpuscular Hemoglobin 32.3 pg (25-34) Mean Corpuscular Hemoglobin Concent 35.1 g/dl (32-36) Platelet Count 300 K/uL (130-400) Mean Platelet Volume 8.8 fL (7.4-10.4) Neutrophils (%) (Auto) 64.9 % Lymphocytes (%) (Auto) 26.2 % Monocytes (%) (Auto) 6.7 % Eosinophils (%) (Auto) 1.6 % Basophils (%) (Auto) 0.4 % Neutrophils # (Auto) 6.17 K/uL (1.4-6.5) Lymphocytes # (Auto) 2.49 K/uL (1.2-3.4) Monocytes # (Auto) 0.64 K/uL (0.11-0.59) Eosinophils # (Auto) 0.15 K/uL (0-0.5) Basophils # (Auto) 0.04 K/uL (0-0.2) RDW Standard Deviation 44.6 fL (36.4-46.3) RDW Coefficient of Variation 13.2 % (11.5-14.5) Immature Granulocyte % (Auto) 0.2 % Immature Granulocyte # (Auto) 0.02 K/uL (0.00-0.02) Erythrocyte Sedimentation Rate 13 mm/hr (0-21) Est Creatinine Clear Calc Drug Dose 93.7 ml/min Estimated GFR () 86.8 Estimated GFR (Non- 74.9 BUN/Creatinine Ratio 8.6 (10-20) Calcium Level 9.5 mg/dl (8.5-10.1) Magnesium Level 2.1 mg/dl (1.8-2.4) Total Bilirubin 0.5 mg/dl (0.2-1) Aspartate Amino Transf (AST/SGOT) 17 U/L (15-37) Alanine Aminotransferase (ALT/SGPT) 33 U/L (12-78) Alkaline Phosphatase 90 U/L (45-117) Troponin I < 0.015 ng/ml (0-0.045) Total Protein 7.6 gm/dl (6.4-8.2) Albumin 3.9 gm/dl (3.4-5.0) Globulin 3.7 gm/dl (2.5-4.0) Albumin/Globulin Ratio 1.0 (0.9-2) Thyroid Stimulating Hormone (TSH) 2.310 uIu/ml (0.300-4.500) Human Chorionic Gonadotropin, Qual NEG (NEG) Bedside Hemoglobin 16.0 g/dl (12.0-16.0) Bedside Hematocrit 47 % (37-47) Bedside Sodium 138 mEq/L (135-144) Bedside Potassium 4.1 mEq/L (3.3-5.0) Bedside Chloride 102 mEq/L (101-112) Bedside Total CO2 23 mEq/l (24-31) Anion Gap 18.0 mmol/L (16-25) Bedside Blood Urea Nitrogen 8 mg/dl (7-18) Bedside Creatinine 1.0 mg/dl (0.6-1.3) Bedside Glucose (other) 94 mg/dl (70-99) Bedside Ionized Calcium ([place]) 1.21 mmol/l (1.12-1.32) ECG Per My Interpretation Indication: other (hypertension) Rate (beats per minute): 77 Rhythm: normal sinus Findings: no acute ischemic change Comparison ECG Date: prior unable to be retrieved due to computer downtime ED Course 1538: The patient was evaluated in room B2. A complete history and physical exam was performed. 1647: Bedside U/S performed to examine eye. No evidence of retinal detachment. Nml size optic nerve at 3 mm. 1735: BP improved without additional medications and pt states vision now normal and facial/head abnormal sensation resolved. 1745: Called radiology regarding CT head and CT angio head given computers and network now down and no imaging results have been seen or sent. Discussed with Dr. Garg who states imaging negative. 1800: Pt updated on all results. Feels improved and states this is similar to prior episodes. Discussed close f/u with her group dynamics instructor to discuss today's event and presentation. Discussed sx to watch/return for. All questions answered at bedside. Pt stated she was comfortable with evaluation here. Offered additional observation which she declined. Discussed continued meds, avoiding salt, adequate hydration. Pt verbalized understanding and was agreeable with plan. Medical Decision Differential diagnosis: Etiologies such as benign hypertension, hypertensive emergency, cardiovascular pathology, pheochromocytoma, electrolyte abnormality, renal disease, endorgan damage, as well as others were entertained. Pt with hypertensive urgency, similar to prior episodes. No known trigger. Headache not worst of her life and resolved spontaneously as BP improved. No additional meds given. Imaging reassuring and labs reassuring. No evidence of additional pathology. Doubt ICH/SAH, cva, dissection, acs, NPH. No evidence of papilledema. Pt improved here and well appearing at DC with complete resolution of symptoms. Discussed close f/u with her group dynamics instructor, which she agree with. No evidence of end organ damage. Discussed her meds, monitoring of her BP, diet/hydration. Pt provided with brief paper DC instructions due to downtime. Medication Reconcilliation Current Medication List: was personally reviewed by me Blood Pressure Screening Patient's blood pressure: Elevated blood pressure Blood pressure disposition: Referred to PCP Impression Primary Impression: Hypertensive urgency Additional Impressions: HTN (hypertension) Vision changes Scribe Attestation The scribe's documentation has been prepared under my direction and personally reviewed by me in its entirety. I confirm that the note above accurately reflects all work, treatment, procedures, and medical decision making performed by me. Departure Information Dispostion Home / Self-Care Referrals Waleska Liz D.O. (PCP) Patient Instructions My [facility] Health Problem Qualifiers Additional Impressions: HTN (hypertension) Hypertension type: unspecified Qualified Codes: I10 - Essential (primary) hypertension
[2018-02-26 16:15] VITALS: BP 144/101; PULSE 86; O2SAT 96
[2018-02-26] MEDS ORDERED: OPTIRAY 320 IV PRN (16:15)
[2018-02-26 16:27] LABS: BASO % 0.4 %; BASO ABS # 0.04 K/uL (0-0.2); EOS % 1.6 %; EOS ABS # 0.15 K/uL (0-0.5); HEMATOCRIT 44.4 % (37-47); HEMOGLOBIN 15.6 g/dL (12.0-16.0); IG# 0.02 K/uL (0.00-0.02); LYMPH % 26.2 %; LYMPH ABS # 2.49 K/uL (1.2-3.4); MEAN CELL VOLUME 91.9 fL (80-100); MEAN CORPUSCULAR HEMOGLOBIN 32.3 pg (25-34); MEAN CORPUSCULAR HGB CONC 35.1 g/dl (32-36); MEAN PLATELET VOLUME 8.8 fL (7.4-10.4); MONO % 6.7 %; MONO ABS # 0.64 K/uL (0.11-0.59); NEUT % 64.9 %; NEUT ABS # 6.17 K/uL (1.4-6.5); PLATELET COUNT 300 K/uL (130-400); RED CELL DISTRIBUTION WIDTH CV 13.2 % (11.5-14.5); RED CELL DISTRIBUTION WIDTH SD 44.6 fL (36.4-46.3); WHITE BLOOD COUNT 9.51 K/uL (4.8-10.8)
[2018-02-26 16:35] LABS: ISTAT IONIZED CALCIUM 1.21 mmol/l (1.12-1.32); ISTAT POTASSIUM 4.1 mEq/L (3.3-5.0)
[2018-02-26 16:46] LABS: ALBUMIN 3.9 gm/dl (3.4-5.0); ALT/SGPT 33 U/L (12-78); AST/SGOT 17 U/L (15-37); BLOOD UREA NITROGEN 9 mg/dl (7-18); CALCIUM 9.5 mg/dl (8.5-10.1); CARBON DIOXIDE 23 mmol/L (21-32); CREATININE 0.99 mg/dl (0.60-1.20); GLUCOSE 89 mg/dl (70-99); POTASSIUM 3.9 mmol/L (3.5-5.1); SODIUM 134 mmol/L (136-145)
[2018-02-26 16:56] LABS: ALKALINE PHOSPHATASE 90 U/L (45-117); TOTAL PROTEIN 7.6 gm/dl (6.4-8.2)
--- NOTE | 2018-02-26 17:39 | DIAGNOSTIC IMAGING REPORT ---
ANGIOGRAPHY HEAD COMBO HISTORY: Headaches. Vision change. TECHNIQUE: Multiaxial CT images of the head were performed both before and after the intravenous administration of contrast to evaluate the major cerebral vessels. Maximum intensity projection images were also obtained. A dose lowering technique was utilized adhering to the principles of ALARA. COMPARISON: 11/13/2017 FINDINGS: There is no mass, hematoma, midline shift, or acute infarct. Visualized intracranial internal carotid arteries, distal vertebral arteries, and basilar artery are widely patent. There is no significant stenosis, occlusion, or aneurysm seen within the bilateral ACAs, MCAs, or instructor private. IMPRESSION: No significant stenosis, occlusion, or aneurysm within the [place]. The above report was generated using voice recognition software. It may contain grammatical, syntax or spelling errors. Electronically signed by: Roland Jensen M.D. 02/26/2018 5:38 PM Dictated Date/Time: 02/26/2018 5:37 PM
== END 2018-02-26 18:11 | disposition home or self-care (01) ==
LOC: EDSEX 15:13 → EDBD 15:13 → C.EDB 15:14
DX: I16.0 Hypertensive urgency (principal); I10 Essential (primary) hypertension; K21.9 Gastro-esophageal reflux disease without esophagitis; F32.9 Major depressive disorder, single episode, unspecified; F17.210 Nicotine dependence, cigarettes, uncomplicated; Z82.49 Family history of ischemic heart disease and other diseases of the circulatory system; Z79.899 Other long term (current) drug therapy

== ENCOUNTER → 2018-03-20 | Outpatient (CLI) | payer OTHER ==
[~2018-03-20] MED LIST changes: +CARV12.5 PO; +CARV25TA2 PO; -CRG125 PO
[2018-03-20 22:10] LABS: ALBUMIN 3.6 gm/dl (3.4-5.0); BLOOD UREA NITROGEN 10 mg/dl (7-18); CALCIUM 9.6 mg/dl (8.5-10.1); CARBON DIOXIDE 26 mmol/L (21-32); CREATININE 1.03 mg/dl (0.60-1.20); GLUCOSE 93 mg/dl (70-99); PHOSPHORUS 4.2 mg/dl (2.5-4.9); POTASSIUM 3.7 mmol/L (3.5-5.1); SODIUM 137 mmol/L (136-145)
== END | disposition home or self-care (01) ==
LOC: C.LAB 21:19
PROVIDERS: ATTEND Internal Medicine Nephrology
DX: I10 Essential (primary) hypertension (principal)